=== PATIENT | female | born 1960 | race Caucasian/White ===

== ENCOUNTER 2020-07-08 13:37 | Emergency (ER) | payer OTHER, SELFPAY ==
[2020-07-08 14:00] VITALS: BP 130/73; PULSE 71; RESP 16; TEMP 36.1; O2SAT 96
[2020-07-08 14:16] VITALS: BP 148/69; PULSE 88; RESP 18; TEMP 35.9; O2SAT 98; BMI 45.3
--- NOTE | 2020-07-08 14:33 | ED.WOUNDLAC ---
HPI - Wound/Laceration General Chief Complaint: Wound/Laceration Stated Complaint: SUTURE REMOVAL Time Seen by Provider: 07/08/20 14:20 Source: patient Mode of arrival: ambulatory History of Present Illness HPI narrative: patient tells me on 06/23 she had 3 sutures placed to her right foot status post a laceration. She returned on 06/30 due to some redness and purulence from the wound site. She was started on antibiotics. The patient tells me she is here for a wound recheck and suture removal. She denies fevers, chills, redness, drainage from the site. She does tell me she has some mild pain around the site. Onset (ago): week(s) Location: other ( Right foot) Patient tetanus UTD: Yes Related Data Allergies Allergy/AdvReac Type Severity Reaction Status Date / Time Penicillins Allergy Severe ANAPHYLAXIS Unverified 06/19/20 15:46 duloxetine [From CYMBALTA] Allergy Unknown UNKNOWN Unverified 06/19/20 15:46 penicillin V Allergy Unknown angioedema Unverified 10/08/19 00:00 STEROIDS Allergy Unknown UNKNOWN Unverified 06/19/20 15:46 Crustaceans Allergy Severe RESP Uncoded 06/19/20 15:46 PROBLEMS SHELLFISH Allergy Severe NUMBNESS Uncoded 06/19/20 15:46 SWELLING MOUTH ENVIRONMENTAL Allergy Intermediate HAYFEVER Uncoded 06/19/20 15:46 SYMPTOMS Cortisone Allergy Unknown Uncoded 11/28/13 00:00 Shell Fish Allergy Unknown Uncoded 10/08/19 00:00 Shellfish Allergy Unknown Uncoded 11/28/13 00:00 Review of Systems Review of Systems: Yes all other systems are reviewed and are negative Constitutional: Constitutional: Reports no additional constitutional complaints, Denies body ache(s), Denies chills, Denies fever(s), Denies headache(s) and Denies weakness Eyes: Eyes: Reports no additional eye complaints and Denies change in vision ENT: Reports system reviewed and no additional complaints, except as documented, Denies dizziness, Denies headache(s), Denies nasal congestion, Denies nasal discharge and Denies neck pain Cardiovascular: Cardiovascular: Reports no additional cardiovascular complaints, Denies chest pain, Denies leg edema and Denies dyspnea Respiratory: Respiratory: Reports no additional respiratory complaints, Denies cough and Denies dyspnea Gastrointestinal: Gastrointestinal: Reports no additional gastrointestinal complaints, Denies abdominal pain, Denies diarrhea, Denies nausea and Denies vomiting Genitourinary: Genitourinary: Reports no additional female genitourinary complaints and Denies urinary incontinence Musculoskeletal: Musculoskeletal: Reports no additional musculoskeletal complaints, Denies back pain, Denies arthralgias, Denies joint swelling, Denies neck pain, Denies numbness and Denies tingling Integumentary/Breasts: Skin/Breast: Reports system reviewed and no additional complaints, except as docu and Denies rash Neurologic: Reports system reviewed and no additional complaints, except as documented, Denies Abnormal speech present, Denies dizziness, Denies headache(s), Denies numbness, Denies tingling and Denies weakness [facility] Past Medical History Attestation statement: The following information was validated with the patient. Source: obtained from family and nursing notes reviewed Medical History Afib Arthritis Back pain, chronic Bronchitis Carpal tunnel syndrome CHF (congestive heart failure) Edema Fibromyalgia Glaucoma Hypothyroid Lupus Migraine Raynauds disease Tachycardia Tendinitis Thyroid nodule Surgical History History of total bilateral knee replacement (TKR) Hx of cholecystectomy Hx of tonsillectomy Social History Social History Advance Directives: No Advance Directives Information Provided: Yes Physical Exam Vital Signs and I&O and Narrative: Vital Signs and I&O: Vital Signs Temp 96.7 F L 07/08/20 14:16 Pulse 88 07/08/20 14:16 Resp 18 07/08/20 14:16 BP 148/69 H 07/08/20 14:16 Pulse Ox 98 07/08/20 14:16 Intake & Output 07/07/20 07/08/20 07/08/20 18:59 06:59 18:59 Weight 108.862 kg Body Mass Index 45.3 Const: General: cooperative, healthy appearing, comfortable and no acute distress Orientation/consciousness: patient oriented x3 Limitations: no limitations HENMT: Head: Yes normal to inspection Ears: hearing grossly normal bilaterally General nose exam: Normal external nose present Face and sinus: Yes normal facial exam Mouth: Normal oral and palatal mucosa present Throat: Yes posterior oropharynx normal Eyes: General: appearance normal, both eyes and all related structures Pupils: Equal, round and reactive pupils present Neck: Neck: Yes normal visual inspection Chest: Chest palpation & inspection: normal inspection of the chest Resp: Effort & Inspection: normal respiratory effort Auscultation: clear to auscultation bilaterally Cardio: Rate: regular rate Rhythm: regular rhythm Peripheral pulses: Peripheral pulses 2+ throughout GI: Inspection: Yes normal to inspection Palpation (GI): Soft to palpation and nontender Auscultation: normal bowel sounds Back/Spine/Pelvis: Thoracic/Lumbar Spine: thoracic and lumbar spine normal to inspection Skin: General skin exam: no rashes or lesions noted Neuro: General: patient oriented x3, no focal motor deficits and normal sensation to monofilament Cranial nerves: Yes Equal, round and reactive pupils present Cognition (Neuro): normal cognition Speech: No Abnormal speech present Gait exam (Neuro): Normal gait present Motor exam (neuro): 5/5 motor strength present throughout Extrem: General: Yes normal to inspection Right lower extremity: normal to inspection ( to the distal dorsal aspect of the right foot there are 3 sutures present.), full ROM, normal capillary refill and foot ( Mild erythema around wound with no purulent drainage expressed. DP/PT 2+); no cyanosis and no edema Procedures Procedure Narrative Procedure Narrative: 3 sutures present and right dorsal foot. Removed with no incidents. Wound care provided with topical antibiotic ointment and wrap. MDM - Wound/Laceration MDM Narrative Medical decision making narrative: Sutures removed from wound. No active signs of infection. Reviewed wound care with patient. Reviewed worrisome signs and symptoms when to return to the emergency department. Comfortable discharge home. Discharge Plan Discharge Clinical Impression: Visit for suture removal Patient Disposition: Home, Self-Care Instructions: Stitches Removal (ED) Additional Instructions: continue antibiotics wash with soap and water then apply topical antibiotic ointment daily Referrals: Mercedes Pandya MD [Primary Care Provider] - 2 days Interventions: ED Discharge Assessment Last Done: 07/08/20 15:34 Discharge Date/Time: 07/08/20 15:35
== END 2020-07-08 15:35 | disposition home or self-care (01) ==
PROVIDERS: Emergency Provider Emergency Medicine; PCP Internal Medicine
DX: M79.671 Pain in right foot (principal); Z48.02 Encounter for removal of sutures; Z79.899 Other long term (current) drug therapy
CPT/HCPCS: 99284

== ENCOUNTER 2020-08-11 14:15 | Outpatient (REF) | payer OTHER, SELFPAY ==
[2020-08-11 15:48] LABS: Hematocrit 38.2 % (37-47); Hemoglobin 12.7 g/dl (12.0-16.0); Mean Corpuscular HGB Conc 33.2 g/dl (31.0-35.0); Mean Corpuscular Hemoglobin 25.9 pg (27.0-33.0); Mean Corpuscular Volume 77.8 fL (80-98); Mean Platelet Volume 10.1 fL (9.4-12.3); Platelet Count 368 X10*3/uL (160-400); Red Blood Count 4.91 X10*6/uL (4.20-5.50); Red Cell Distribution Width 15.4 % (11.0-16.0)
[2020-08-11 16:51] LABS: Anion Gap 15 (12-20); Blood Urea Nitrogen 26 mg/dL (9-16); Calcium 8.7 mg/dL (8.4-10.2); Carbon Dioxide 30 mmol/L (22-29); Chloride 97 mmol/L (96-108); Estimated Glomerular Filt Rate 47; Glucose Random 92 mg/dL (60-115); Potassium 3.2 mmol/l (3.3-5.1); Sodium 139 mmol/L (135-145)
[2020-08-11 17:12] LABS: TSH reflex Free T4 1.61 mIU/mL (0.32-4.0)
== END 2020-08-11 14:16 | disposition home or self-care (01) ==
LOC: HO.LAB 14:15
PROVIDERS: PCP Internal Medicine; Referring Provider Internal Medicine; Visit Provider Internal Medicine Cardiovascular Disease
DX: I48.0 Paroxysmal atrial fibrillation (principal); R07.9 Chest pain, unspecified; I47.1 Supraventricular tachycardia
CPT/HCPCS: 36415; 80048; 84443; 85027; 93005; 99212

== ENCOUNTER → 2020-09-04 08:13 | Outpatient (REF) | payer OTHER, SELFPAY ==
--- NOTE | 2020-09-04 | NM_ITS ---
Myocardial perfusion study Indication: Recurrent chest discomfort and shortness of breath evaluate for myocardial ischemia Technique: The patient was brought in for a Lexiscan perfusion study on 09/04/2020. Patient performed low-level exercise and was injected 0.4 mg of Lexiscan intravenously. Within a minute of injection, 40 mCi of sestamibi was given intravenously. Images were obtained using the SPECT gamma camera interlaced with the gating device. Images were obtained in supine position. Resting perfusion study was performed on 09/05/2020. Patient was administered 40 mCi of sestamibi intravenously at rest. Images were then obtained in supine position. Images were processed with the software and compared side to side in short axis, horizontal long axis and vertical long axis views. Findings: The stress perfusion study showed stress perfusion study showed minimally reduced uptake in the apex of the LV myocardium. Remainder of the LV myocardium normally perfused.. The gated study shows normal LV systolic function with calculated LVEF of 63%. LV cavity is normal in size. The gated study shows normal systolic wall thickening and contraction of segments. Resting study shows no change in perfusion pattern compared to stress perfusion study. Gating at rest reveals normal cyst colic wall motion with ejection fraction at 63%. The findings are consistent with normal myocardial perfusion. NM/NM tailb perf SPECT rest & str Impression: 1. Myocardial perfusion imaging study shows normal myocardial perfusion 2. Gated LVEF is 63% 3. Transient ischemic dilatation not present EKG is nondiagnostic for ischemia
--- NOTE | 2020-09-04 08:21 | CA_ITS ---
Transthoracic Echocardiogram Patient (Last, First, Middle): Marie Banks, Gender: Female Date of : 1960 Age: 60 Procedure Date: 09/04/2020 Procedure Type: Transthoracic Echocardiogram Location: OP Height: 154.94 cm Weight: 110.22 kg BSA: 2.05 m2 Heart Rate: bpm BP: 124 / 78 mmHg Corpsman: LOUISE Ramos MD: Josiah Anne MD Health Information Provider: Josiah Anne MD Symptoms: R07.9 - Chest pain, unspecified Study Quality: Fair ECG Rhythm: Sinus Conclusions: - 1. Technically limited study despite use of contrast agent 2. Normal LV systolic function with LVEF of 55-60% with grade 1 diastolic dysfunction 3. No significant abnormality of cardiac valvular Doppler Findings Procedure Information Contrast agent, definity, is being given per protocol without apparent complications. Left Ventricle Normal left ventricular cavity size. The left ventricular systolic function is normal. The visually estimated ejection fraction is between 55-60%. There is no evidence of regional wall motion abnormalities. Spectral Doppler is indicative of an impaired relaxation filling pattern. E/E prime ratio is <8, consistent with normal filling pressures. Evidence suggests grade I (mild) diastolic dysfunction. Right Ventricle The right ventricle was not well visualized. Atria The left atrium is likely dilated. Interatrial shunt cannot be excluded. The right atrium was not well visualized. Aortic Valve The aortic valve structure and function is likely normal. There is no aortic valve stenosis. There is no aortic valve regurgitation. Mitral Valve Normal mitral valve structure and function. There is trace mitral valve regurgitation. There is no mitral valve stenosis. Pulmonic Valve The pulmonic valve was not well visualized. Tricuspid Valve The tricuspid valve was not well visualized. Tricuspid regurgitation envelope is inadequate for calculation of right ventricular systolic pressure. Great Vessels All visible segments of the aorta are normal in size. The pulmonary artery was not well visualized. Venous The inferior vena cava was not well visualized. Pericardium/Pleural The pericardium was not well visualized. Prior Study Comparison No significant change compared to prior study dated: 04/19/2019. Measurements 2D Linear Measurements LA Diam: 3.40 2.7-3.8/3.0-4.0 cm LAIDs Index: 1.66 1.5-2.3 cm/m2 LVOT Diam: 2.10 3.0+(-)1.3 cm Mitral Valve MV Pk E: 0.51 MV PK A: 0.55 MV Decel Time: 152.00 E/A: 0.90 E'Lateral: 9.25 E'Medial: 6.96 E/E' Med: 7.40 E/E' Lat: 5.60 Aortic Valve AoV Pk Zeyad: 1.09 AoV Mn Zeyad: 0.81 AoV VTI: 0.21 AoV Pk Grad: 5.00 Aov Mn Grad: 3.00 JOY Cont.VTI: 2.47 LVOT LVOT Pk Zeyad: 0.85 LVOT Mn Zeyad: 0.59 LVOT VTI: 0.15 LVOT Pk Grad: 3.00 LVOT Mn Grad: 1.00 LVOT Diam: 2.10 LVOT Area: 3.46 Diastolic Function MV Pk E: 0.51 MV Pk A: 0.55 E/A: 0.90 E'Medial: 6.96 E/E' Med: 7.40 E' Laterial: 9.25 E/E' Lat: 5.60 Tricuspid Valve RA Press: 8.00 Great Vessels Aorta Ao Asc: 2.80 2.1-3.4 cm Ao Arch: 2.30 Updated in Other Vendor System with Status of Final Josiah Anne MD electronically signed on 09/05/2020 3:48:34 PM with status of Final
--- NOTE | 2020-09-04 08:21 | CA_ITS ---
Acquisition Time: 2020-09-04 09:49:16 Total Exercise Time: 00:02:00 Test Indications: Dyspnea Medications: SEE H Protocol: LEXISCAN Max HR: 099 BPM 61% of Pred: 162 BPM Max BP: 128/080 mmHG Max Work Load: 1.0 METS Pharmacological stress test using Lexiscan while sitting and kicking her feet. Patient tolerated well denies any anginal symptoms. EKG without any arrhythmias Non-diagnostic for ischemia. Nuclear images to follow. Normotensive response to test. Test reviewed with Dr. Anne. Referred By: Josiah Anne Overread By: Chichi Quinonez
== END ==
LOC: HO.CARD 08:13
PROVIDERS: Visit Provider Internal Medicine Cardiovascular Disease
DX: R07.9 Chest pain, unspecified (principal); I48.0 Paroxysmal atrial fibrillation; I10 Essential (primary) hypertension
CPT/HCPCS: 78452; 87086; 93017; 93306; A9500; J0280; J2785; Q9957

== ENCOUNTER 2020-09-05 11:44 | Outpatient (REF) | payer OTHER, SELFPAY ==
--- NOTE | 2020-09-05 11:44 | XR_ITS ---
EXAMINATION: XR KNEES, STANDING AP XR KNEE, RIGHT XR KNEE, LEFT CLINICAL INFORMATION: Bilateral knee pain COMPARISON: Standing AP knees and bilateral knees 02/17/2015 TECHNIQUE: Standing AP view of both knees is performed. Each knee is also imaged in lateral and axial patella views. FINDINGS: Right knee: There is prior knee arthroplasty. The hardware is intact. There is no fracture or dislocation or destructive process. No osteolysis. There is likely trace suprapatellar effusion. No lateralization or tilting patella. Left knee: There is prior knee arthroplasty. The hardware is intact. There is no fracture or dislocation or destructive process. No osteolysis. No suprapatellar effusion. No lateralization or tilting patella. There is small corticated ossicle at the medial side patella. XR/XR knee RT 2V IMPRESSION: 1. Bilateral knee arthroplasty. Hardware intact. No destructive process or osteolysis. 2. Probable trace effusion on right.
--- NOTE | 2020-09-05 11:44 | XR_ITS ---
EXAMINATION: XR KNEES, STANDING AP XR KNEE, RIGHT XR KNEE, LEFT CLINICAL INFORMATION: Bilateral knee pain COMPARISON: Standing AP knees and bilateral knees 02/17/2015 TECHNIQUE: Standing AP view of both knees is performed. Each knee is also imaged in lateral and axial patella views. FINDINGS: Right knee: There is prior knee arthroplasty. The hardware is intact. There is no fracture or dislocation or destructive process. No osteolysis. There is likely trace suprapatellar effusion. No lateralization or tilting patella. Left knee: There is prior knee arthroplasty. The hardware is intact. There is no fracture or dislocation or destructive process. No osteolysis. No suprapatellar effusion. No lateralization or tilting patella. There is small corticated ossicle at the medial side patella. XR/XR knee LT 2V IMPRESSION: 1. Bilateral knee arthroplasty. Hardware intact. No destructive process or osteolysis. 2. Probable trace effusion on right.
--- NOTE | 2020-09-05 11:44 | XR_ITS ---
EXAMINATION: XR KNEES, STANDING AP XR KNEE, RIGHT XR KNEE, LEFT CLINICAL INFORMATION: Bilateral knee pain COMPARISON: Standing AP knees and bilateral knees 02/17/2015 TECHNIQUE: Standing AP view of both knees is performed. Each knee is also imaged in lateral and axial patella views. FINDINGS: Right knee: There is prior knee arthroplasty. The hardware is intact. There is no fracture or dislocation or destructive process. No osteolysis. There is likely trace suprapatellar effusion. No lateralization or tilting patella. Left knee: There is prior knee arthroplasty. The hardware is intact. There is no fracture or dislocation or destructive process. No osteolysis. No suprapatellar effusion. No lateralization or tilting patella. There is small corticated ossicle at the medial side patella. XR/XR knee standing BI IMPRESSION: 1. Bilateral knee arthroplasty. Hardware intact. No destructive process or osteolysis. 2. Probable trace effusion on right.
== END 2020-09-05 11:45 | disposition home or self-care (01) ==
LOC: HO.HOSX 11:44
PROVIDERS: Visit Provider Orthopaedic Surgery
DX: M25.562 Pain in left knee (principal); M25.561 Pain in right knee; Z96.653 Presence of artificial knee joint, bilateral
CPT/HCPCS: 73560; 73565; 99212

== ENCOUNTER 2020-12-03 13:51 | Emergency (ER) | payer OTHER, SELFPAY ==
--- NOTE | ~2020-12-03 | XR_ITS ---
EXAMINATION: XR CHEST CLINICAL INFORMATION: Weakness COMPARISON: Previous chest x-ray August 2019 TECHNIQUE: Frontal view of the chest was obtained. FINDINGS: The cardiac and mediastinal contours are stable. The lungs are clear. There is no pleural effusion or pneumothorax. There are degenerative changes of the thoracic spine. XR/XR chest 1V IMPRESSION: No evidence for acute disease in the chest.
--- NOTE | ~2020-12-03 | CT_ITS ---
EXAMINATION: CT SOFT TISSUE NECK WITHOUT CONTRAST CLINICAL INFORMATION: Left-sided neck pain. COMPARISON: Chest radiograph from 12/03/2020. Thyroid ultrasound from 07/20/2016. TECHNIQUE: Multidetector helical imaging was performed in the axial plane without intravenous contrast. Multiple axial reformats and coronal/sagittal reconstructions were created the technologist workstation for review. This CT examination was performed using dose optimization techniques as appropriate, variously including the following: *Automated exposure control. *Adjustment of mA and/or kV according to patient size (this includes techniques or standardized protocols for targeted exams where dose is matched to indication/reason for exam; i.e. extremities or head). *Use of iterative reconstruction technique. DLP: 665 mGy-cm FINDINGS: No significant cutaneous thickening or subcutaneous inflammation. No discrete fluid collection within the deep tissues of the neck. The premaxillary, retromaxillary, pterygopalatine fossa, orbital apical, parapharyngeal, and prelaryngeal adipose tissue is maintained. Normal appearance of the parotid, submandibular, and thyroid glands. Scattered subcentimeter lymph nodes bilaterally, none of which are pathologically enlarged. No focal lesions demonstrated within the intrinsic tissues of the tongue or floor of mouth. Normal mucosal contours of the pharynx and larynx. Normal appearance of the hyoid bone, thyroid cartilage, or cartilaginous trachea. The airways remains widely patent. No radiopaque foreign bodies. The atlantooccipital and atlantoaxial articulations remain well aligned. Straightening of the normal cervical lordosis. No evidence of acute fracture or subluxation of the cervical spine. The vertebral body heights are maintained. Advanced degenerative disc disease at C4-C5 and C5-C6 with disc-osteophyte complex formation. Facet and uncovertebral joint arthropathy leads to osseous encroachment on the neural foramina at C5-C6. There is no prevertebral soft tissue swelling. The visualized portion of the skull base is without significant abnormalities. The visualized paranasal sinuses are clear. The mastoid air cells and middle ear cavities are clear. Periapical lucency associated with the maxillary right canine. No additional Demonstrated significant periapical odontogenic disease. CT Upper Chest: The visualized lung apices and upper mediastinum are within normal limits. CT/CT soft tissue neck wo con IMPRESSION: 1. No demonstrated focal lesion, collection, or lymphadenopathy within the soft tissues of the neck. 2. Mild to moderate degenerative spondyloarthropathy of the cervical spine.
[2020-12-03 14:04] VITALS: BP 150/84; PULSE 82; RESP 18; TEMP 36.3; O2SAT 97; BMI 45.9
--- NOTE | 2020-12-03 14:54 | ECG_ITS ---
Test Reason : NUMBNESS Blood Pressure : / mmHG Vent. Rate : 082 BPM Atrial Rate : 082 BPM P-R Int : 174 ms QRS Dur : 098 ms QT Int : 416 ms P-R-T Axes : 044 -07 036 degrees QTc Int : 486 ms Normal sinus rhythm Low voltage QRS T wave abnormality, consider anterior ischemia Abnormal ECG When compared with ECG of 12-AUG-2019 08:50, Nonspecific T wave abnormality, improved in Inferior leads Referred By: Mercedes Pandya Electronically Signed By:SARWAT DE LOS SANTOS
[2020-12-03 15:48] LABS: MANUAL DIFF FLAG NO
[2020-12-03 15:51] LABS: Basophils Percent Auto 0.1 % (0-2); Eosinophils Absolute Auto 0.1 X10*3/uL (0.0-0.4); Eosinophils Percent Auto 1.6 % (0-4); Hematocrit 38.3 % (37-47); Hemoglobin 12.8 g/dl (12.0-16.0); Imm Gran Abs Auto 0.03 X10*3/uL (0.00-0.03); Imm Gran Pct Auto 0.3 % (0.0-0.4); Lymphocytes Absolute Auto 2.2 X10*3/uL (1.2-4.9); Lymphocytes Percent Auto 25.7 % (20-40); Mean Corpuscular HGB Conc 33.4 g/dl (31.0-35.0); Mean Corpuscular Hemoglobin 26.1 pg (27.0-33.0); Monocytes Absolute Auto 0.5 X10*3/uL (0.1-1.2); Monocytes Percent Auto 5.9 % (2-11); Neutrophils Absolute Auto 5.8 X10*3/uL (2.0-8.3); Neutrophils Percent Auto 66.4 % (45-73); Platelet Count 419 X10*3/uL (160-400); Red Blood Count 4.91 X10*6/uL (4.20-5.50); Red Cell Distribution Width 15.6 % (11.0-16.0); White Blood Count 8.7 X10*3/uL (4.8-10.8)
[2020-12-03 16:28] LABS: Troponin-I High Sensitivity < 3.5 ng/L (<3.5-17.0)
[2020-12-03 16:31] LABS: Anion Gap 12 (12-20); Blood Urea Nitrogen 20 mg/dL (9-16); Calcium 9.3 mg/dL (8.4-10.2); Carbon Dioxide 33 mmol/L (22-29); Chloride 96 mmol/L (96-108); Creatinine Clr Calc Pharmacy 65.8; Estimated Glomerular Filt Rate 53; Glucose Random 88 mg/dL (60-115); Potassium 3.7 mmol/L (3.3-5.1); Sodium 137 mmol/L (135-145)
--- NOTE | 2020-12-03 21:07 | ED.GENADULT ---
HPI - General Adult General Chief complaint: Weakness Stated complaint: numbness arm and leg Time Seen by Provider: 12/03/20 15:37 Source: patient Mode of arrival: ambulatory Limitations: no limitations History of Present Illness HPI narrative: Patient comes to emergency room complaining of left-sided body pains. Patient states it started on November 24. Patient states that her neck hurts, has pain radiating down towards the left arm, has back pain, hip pain, leg pain. Patient states that she had no trauma prior to all this. Patient complaining of upper middle and lower back pain. Patient is ambulatory without assistance. Patient states she has been having a hard time dressing herself or taking showers because of the pain in the left upper body that is radiating from the neck down. Related Data Home Medications Medication Instructions Recorded Confirmed alprazolam 0.5 mg tablet 0.5 mg PO TID PRN 08/11/20 09/05/20 ascorbic acid (vitamin C) 250 mg 250 mg PO DAILY 08/11/20 09/05/20 tablet calcium carbonate 600 mg calcium 600 mg PO DAILY 08/11/20 09/05/20 (1,500 mg) tablet docusate sodium 100 mg capsule 100 mg PO BID 08/11/20 09/05/20 ferrous sulfate 325 mg (65 mg 325 mg PO DAILY 08/11/20 09/05/20 iron) tablet fluticasone propionate 110 0 mcg INHALATION 08/11/20 09/05/20 mcg/actuation HFA aerosol inhaler folic acid 1 mg tablet 1 mg PO DAILY 08/11/20 09/05/20 furosemide 20 mg tablet 20 mg PO DAILY 08/11/20 09/05/20 levothyroxine 75 mcg tablet 75 mcg PO DAILY 08/11/20 09/05/20 loratadine 10 mg tablet 10 mg PO DAILY 08/11/20 09/05/20 milnacipran 50 mg tablet 50 mg PO BID 08/11/20 09/05/20 multivitamin 1 tab PO DAILY 08/11/20 09/05/20 omeprazole 20 mg capsule,delayed 20 mg PO DAILY 08/11/20 09/05/20 release pravastatin 20 mg tablet mg PO 08/11/20 09/05/20 Previous Rx's Medication Instructions Recorded lisinopril 10 mg tablet 10 mg PO DAILY 30 Days #30 tab 08/27/20 dabigatran etexilate 150 mg capsule 150 mg PO BID #56 cap 09/01/20 dronedarone 400 mg tablet 400 mg PO BID #60 tab 09/01/20 metoprolol tartrate 50 mg tablet 50 mg PO BID 90 Days #180 tab 09/02/20 hydrochlorothiazide 25 mg tablet 25 mg PO QAM 90 Days #90 tab 10/27/20 tramadol 50 mg PO Q8H PRN #14 tab 12/03/20 Allergies Allergy/AdvReac Type Severity Reaction Status Date / Time Penicillins Allergy Severe ANAPHYLAXIS Verified 09/05/20 12:24 duloxetine [From CYMBALTA] Allergy Unknown UNKNOWN Verified 09/05/20 12:24 STEROIDS Allergy Unknown UNKNOWN Verified 09/05/20 12:24 Crustaceans Allergy Severe RESP Uncoded 09/05/20 12:24 PROBLEMS SHELLFISH Allergy Severe NUMBNESS Uncoded 09/05/20 12:24 SWELLING MOUTH Cortisone Allergy Unknown unknown Uncoded 09/05/20 12:24 Review of Systems Review of Systems: Constitutional : No Weight loss, No Fever, No Chills, No Night Sweats, No Fatigue, No Malaise ENT/Mouth : No Hearing loss, No Ear Pain, No Nasal Congestion, No Sinus Pain, No Hoarseness, No sore throat, No Rhinorrhea, No Swallowing Difficulty Eyes: No Eye Pain, No Swelling, No Redness, No Foreign Body, No Discharge, No Vision Changes Cardiovascular : No Chest Pain, No SOB, No Dyspnea on Exertion, No Orthopnea, No Edema, No Palpitations Respiratory : No Cough, No Sputum, No Wheezing, No Smoke Exposure, No Dyspnea Gastrointestinal : No Nausea, No Vomiting, No Diarrhea, No Constipation, No abdominal Pain, No Hematochezia, No Melena Genitourinary : no irregular bleeding, No Dysuria, No Urinary Frequency, No Hematuria, No Urinary Incontinence, No Urgency, No Flank Pain, No Urinary Flow Changes, No Hesitancy Musculoskeletal : Multiple complaints including neck upper extremity lower extremity hip and back, all on the left side Skin : No Skin Lesions, No rash Neuro : No Weakness, complaining of paresthesias in her left upper extremity Psych : No Anxiety/Panic, No Depression, No SI/HI/AH/VH, No Social Issues, Heme/Lymph: No Bruising, No Bleeding,No Lymphadenopathy Endocrine : No Polyuria, No Polydipsia, No Temperature Intolerance [facility] Past Medical History Medical History Arthritis Back pain, chronic Bronchitis Carpal tunnel syndrome Edema Fibromyalgia Glaucoma HTN (hypertension) Hypothyroid Lupus Migraine Morbid obesity Paroxysmal atrial fibrillation Raynauds disease SVT (supraventricular tachycardia) Takotsubo cardiomyopathy Tendinitis Thyroid nodule Surgical History History of total bilateral knee replacement (TKR) Hx of cholecystectomy Hx of tonsillectomy Family History Family History Father No problems noted. Mother CVD (cardiovascular disease) Brother Stomach cancer Social History Social History Smoking Status: Never smoker Advance Directives: No Advance Directives Information Provided: Yes Current occupational status: disabled Current occupation: right handed Physical Exam Vital Signs: Vital Signs: Last Vital Signs Temp 97.8 F 12/03/20 22:02 Pulse 84 12/03/20 22:02 Resp 18 12/03/20 22:02 BP 152/106 H 12/03/20 22:02 Pulse Ox 97 12/03/20 22:02 Body Mass Index 45.9 Appearance: Alert. Oriented X3. No acute distress. Morbidly obese Eyes: Pupils equal, round and reactive to light. ENT: Pharynx normal. Neck: Normal inspection. Pain to palpation over the left side of her neck, no midline tenderness, no palpable step-offs CVS: Normal heart rate and rhythm. Pulses normal. Normal S1 and S2 Respiratory: No respiratory distress. Breath sounds normal. No Wheezing. No rales Abdomen: Soft and nontender. No rigidity. No distention. good BS x4 Skin: Skin warm and dry. Extremities: No lower extremity edema. Patient is ambulatory without assistance. Patient is able to abduct both arms, strength 5/5 bilaterally Neuro: Oriented X 3. No motor deficit. No sensory deficit. Moving all extermities. No slurred speech. Course Course Course Narrative: I discussed the CT scan with the patient, no acute findings. However patient may benefit from MRI to rule out because of the cervical radiculopathy, which is likely the source of the patient's pain radiating from the neck down the left arm. Patient states that before COVID she was being seen by Endocrinology and by Rheumatology for various health issues. Patient requesting their phone numbers to continue following up. Medical Decision Making Lab Data Result diagrams: 12/03/20 15:41 12/03/20 15:41 Labs: Lab Results 12/03/20 12/03/20 12/03/20 Range/Units 15:41 15:41 15:41 WBC 8.7 (4.8-10.8) X10*3/uL RBC 4.91 (4.20-5.50) X10*6/uL Hgb 12.8 (12.0-16.0) g/dl Hct 38.3 (37-47) % MCV 78.0 L (80-98) fL MCH 26.1 L (27.0-33.0) pg MCHC 33.4 (31.0-35.0) g/dl RDW 15.6 (11.0-16.0) % Plt Count 419 H (160-400) X10*3/uL MPV 10.0 (9.4-12.3) fL Immature Gran % (Auto) 0.3 (0.0-0.4) % Neut % (Auto) 66.4 (45-73) % Lymph % (Auto) 25.7 (20-40) % Foard % (Auto) 5.9 (2-11) % Eos % (Auto) 1.6 (0-4) % Baso % (Auto) 0.1 (0-2) % Lymph # (Auto) 2.2 (1.2-4.9) X10*3/uL Foard # (Auto) 0.5 (0.1-1.2) X10*3/uL Eos # (Auto) 0.1 (0.0-0.4) X10*3/uL Baso # (Auto) 0.0 (0.0-0.2) X10*3/uL Abs Immat Gran (auto) 0.03 (0.00-0.03) X10*3/uL Absolute Neuts (auto) 5.8 (2.0-8.3) X10*3/uL Absolute Nucleated RBC 0.000 (0.0-0.012) X10*3/uL Nucleated RBC % (auto) 0.0 (0.0-0.2) /100WBC Sodium 137 (135-145) mmol/L Potassium 3.7 (3.3-5.1) mmol/L Chloride 96 (96-108) mmol/L Carbon Dioxide 33 H (22-29) mmol/L Anion Gap 12 (12-20) BUN 20 H (9-16) mg/dL Creatinine 1.07 (0.5-1.4) mg/dL Estim Creat Clear Calc 65.8 Estimated GFR 53 Random Glucose 88 (60-115) mg/dL Calcium 9.3 D (8.4-10.2) mg/dL Troponin I High Sens < 3.5 (<3.5-17.0) ng/L Imaging Data Neck CT: Radiologist's impression: Left-sided neck pain. COMPARISON: Chest radiograph from 12/03/2020. Thyroid ultrasound from 07/20/2016. TECHNIQUE: Multidetector helical imaging was performed in the axial plane without intravenous contrast. Multiple axial reformats and coronal/sagittal reconstructions were created the technologist workstation for review. This CT examination was performed using dose optimization techniques as appropriate, variously including the following: *Automated exposure control. *Adjustment of mA and/or kV according to patient size (this includes techniques or standardized protocols for targeted exams where dose is matched to indication/reason for exam; i.e. extremities or head). *Use of iterative reconstruction technique. DLP: 665 mGy-cm FINDINGS: No significant cutaneous thickening or subcutaneous inflammation. No discrete fluid collection within the deep tissues of the neck. The premaxillary, retromaxillary, pterygopalatine fossa, orbital apical, parapharyngeal, and prelaryngeal adipose tissue is maintained. Normal appearance of the parotid, submandibular, and thyroid glands. Scattered subcentimeter lymph nodes bilaterally, none of which are pathologically enlarged. No focal lesions demonstrated within the intrinsic tissues of the tongue or floor of mouth. Normal mucosal contours of the pharynx and larynx. Normal appearance of the hyoid bone, thyroid cartilage, or cartilaginous trachea. The airways remains widely patent. No radiopaque foreign bodies. The atlantooccipital and atlantoaxial articulations remain well aligned. Straightening of the normal cervical lordosis. No evidence of acute fracture or subluxation of the cervical spine. The vertebral body heights are maintained. Advanced degenerative disc disease at C4-C5 and C5-C6 with disc-osteophyte complex formation. Facet and uncovertebral joint arthropathy leads to osseous encroachment on the neural foramina at C5-C6. There is no prevertebral soft tissue swelling. The visualized portion of the skull base is without significant abnormalities. The visualized paranasal sinuses are clear. The mastoid air cells and middle ear cavities are clear. Periapical lucency associated with the maxillary right canine. No additional Demonstrated significant periapical odontogenic disease. CT Upper Chest: The visualized lung apices and upper mediastinum are within normal limits. CT/CT soft tissue neck wo con IMPRESSION: 1. No demonstrated focal lesion, collection, or lymphadenopathy within the soft tissues of the neck. 2. Mild to moderate degenerative spondyloarthropathy of the cervical spine. Discharge Plan Discharge Clinical Impression: Cervical radiculopathy Patient Disposition: Home, Self-Care Instructions: Cervical Radiculopathy (ED) Additional Instructions: Please follow-up with your primary care physician, you may need an MRI of her neck. Please call [facility] to schedule an appointment: [phone]. Please call Endocrinology to schedule an appointment: [phone] Prescriptions: New tramadol 50 mg tablet 50 mg PO Q8H PRN (Reason: pain) Qty: 14 RF: 0 No Action lisinopril 10 mg tablet 10 mg PO DAILY 30 Days Qty: 30 RF: 5 Multaq 400 mg tablet 400 mg PO BID Qty: 60 RF: 3 dabigatran etexilate [Pradaxa] 150 mg capsule 150 mg PO BID Qty: 56 RF: 5 metoprolol tartrate 50 mg tablet 50 mg PO BID 90 Days Qty: 180 RF: 3 hydrochlorothiazide 25 mg tablet 25 mg PO QAM 90 Days Qty: 90 RF: 1 folic acid 1 mg tablet 1 mg PO DAILY RF: 0 Savella 50 mg tablet 50 mg PO BID RF: 0 loratadine 10 mg tablet 10 mg PO DAILY RF: 0 furosemide 20 mg tablet 20 mg PO DAILY RF: 0 pravastatin 20 mg tablet PO RF: 0 omeprazole 20 mg capsule,delayed release(DR/EC) 20 mg PO DAILY RF: 0 docusate sodium 100 mg capsule 100 mg PO BID RF: 0 ferrous sulfate 325 mg (65 mg iron) tablet 325 mg PO DAILY RF: 0 ascorbic acid (vitamin C) 250 mg tablet 250 mg PO DAILY RF: 0 calcium carbonate 600 mg calcium (1,500 mg) tablet 600 mg PO DAILY RF: 0 levothyroxine 75 mcg tablet 75 mcg PO DAILY RF: 0 multivitamin Tablet 1 tab PO DAILY RF: 0 alprazolam 0.5 mg tablet 0.5 mg PO TID PRNRF: 0 Flovent HFA 110 mcg/actuation HFA aerosol inhaler 0 mcg inhalation RF: 0
--- NOTE | 2020-12-03 21:47 | PC.NURSE ---
late entry, per okay to move to [facility]
[2020-12-03 22:02] VITALS: BP 152/106; PULSE 84; RESP 18; TEMP 36.6; O2SAT 97
--- NOTE | 2020-12-03 22:24 | PC.NURSE ---
Pt called this investment underwriter while i was in another patient's room. Per patient this is unacceptable, I can't believe you moved me. I m going to catch covid and i haven't gotten anything for pain. I m going to file on this hospital this is unfair. pt reducated that provider cleared patient to be moved from monitor bed. MD was notified earlier about pain management, needs. Provider to bedside for reevaluation.
--- NOTE | 2020-12-03 22:34 | PC.NURSE ---
pt refusing tramadol, i don't trust it, I dont' use it.: pt offered education regarding tramadol. aware.
== END 2020-12-03 22:47 | disposition home or self-care (01) ==
PROVIDERS: Emergency Provider Emergency Medicine; PCP Internal Medicine
DX: M54.12 Radiculopathy, cervical region (principal); I10 Essential (primary) hypertension; M79.7 Fibromyalgia; E66.01 Morbid (severe) obesity due to excess calories; I48.0 Paroxysmal atrial fibrillation; I51.81 Takotsubo syndrome; Z79.899 Other long term (current) drug therapy
CPT/HCPCS: 36415; 70490; 71045; 80048; 84484; 85025; 93005; 99284

== ENCOUNTER 2021-02-07 13:40 | Emergency (ER) | payer OTHER, SELFPAY ==
[2021-02-07 14:59] VITALS: BP 131/75; PULSE 80; RESP 18; TEMP 37; O2SAT 99; BMI 36.6
--- NOTE | 2021-02-07 15:07 | ED.URI ---
HPI - URI/Sore Throat General Chief Complaint: Upper Respiratory Symptoms Stated Complaint: cough,congestion Time Seen by Provider: 02/07/21 14:43 Source: patient Mode of arrival: ambulatory Limitations: no limitations History of Present Illness HPI Narrative: 60-year-old female here with you URI symptoms. Requesting COVID tested she is due for her 2nd COVID shot this week Related Data Home Medications Medication Instructions Recorded Confirmed alprazolam 0.5 mg tablet 0.5 mg PO TID PRN 08/11/20 09/05/20 ascorbic acid (vitamin C) 250 mg 250 mg PO DAILY 08/11/20 09/05/20 tablet calcium carbonate 600 mg calcium 600 mg PO DAILY 08/11/20 09/05/20 (1,500 mg) tablet docusate sodium 100 mg capsule 100 mg PO BID 08/11/20 09/05/20 ferrous sulfate 325 mg (65 mg 325 mg PO DAILY 08/11/20 09/05/20 iron) tablet fluticasone propionate 110 0 mcg INHALATION 08/11/20 09/05/20 mcg/actuation HFA aerosol inhaler folic acid 1 mg tablet 1 mg PO DAILY 08/11/20 09/05/20 furosemide 20 mg tablet 20 mg PO DAILY 08/11/20 09/05/20 levothyroxine 75 mcg tablet 75 mcg PO DAILY 08/11/20 09/05/20 loratadine 10 mg tablet 10 mg PO DAILY 08/11/20 09/05/20 milnacipran 50 mg tablet 50 mg PO BID 08/11/20 09/05/20 multivitamin 1 tab PO DAILY 08/11/20 09/05/20 omeprazole 20 mg capsule,delayed 20 mg PO DAILY 08/11/20 09/05/20 release pravastatin 20 mg tablet mg PO 08/11/20 09/05/20 Previous Rx's Medication Instructions Recorded dronedarone 400 mg tablet 400 mg PO BID #60 tab 09/01/20 metoprolol tartrate 50 mg tablet 50 mg PO BID 90 Days #180 tab 09/02/20 hydrochlorothiazide 25 mg tablet 25 mg PO QAM 90 Days #90 tab 10/27/20 tramadol 50 mg PO Q8H PRN #14 tab 12/03/20 dabigatran etexilate 150 mg capsule 150 mg PO BID 90 Days #180 cap 02/02/21 lisinopril 10 mg tablet 10 mg PO DAILY #28 tab 02/03/21 azithromycin See Rx Instructions .ROUTE 02/07/21 .COMPLEX #6 tab benzonatate [Tessalon Perles] 100 mg PO BID PRN #10 cap 02/07/21 Allergies Allergy/AdvReac Type Severity Reaction Status Date / Time Penicillins Allergy Severe ANAPHYLAXIS Verified 09/05/20 12:24 duloxetine [From CYMBALTA] Allergy Unknown UNKNOWN Verified 09/05/20 12:24 STEROIDS Allergy Unknown UNKNOWN Verified 09/05/20 12:24 Crustaceans Allergy Severe RESP Uncoded 09/05/20 12:24 PROBLEMS SHELLFISH Allergy Severe NUMBNESS Uncoded 09/05/20 12:24 SWELLING MOUTH Cortisone Allergy Unknown unknown Uncoded 09/05/20 12:24 Review of Systems Review of Systems: Yes all other systems are reviewed and are negative Constitutional: Constitutional: Reports no additional constitutional complaints, Denies body ache(s), Denies chills, Denies fever(s), Denies headache(s) and Denies weakness Eyes: Eyes: Reports no additional eye complaints and Denies change in vision ENT: Reports system reviewed and no additional complaints, except as documented, Denies dizziness, Denies headache(s), Denies nasal congestion, Denies nasal discharge and Denies neck pain Cardiovascular: Cardiovascular: Reports no additional cardiovascular complaints, Denies chest pain, Denies leg edema and Denies dyspnea Respiratory: Respiratory: Reports no additional respiratory complaints, Reports cough and Denies dyspnea Gastrointestinal: Gastrointestinal: Reports no additional gastrointestinal complaints, Denies abdominal pain, Denies diarrhea, Denies nausea and Denies vomiting Genitourinary: Genitourinary: Reports no additional female genitourinary complaints and Denies urinary incontinence Musculoskeletal: Musculoskeletal: Reports no additional musculoskeletal complaints, Denies back pain, Denies arthralgias, Denies joint swelling, Denies neck pain, Denies numbness and Denies tingling Integumentary/Breasts: Skin/Breast: Reports system reviewed and no additional complaints, except as docu and Denies rash Neurologic: Reports system reviewed and no additional complaints, except as documented, Denies Abnormal speech present, Denies dizziness, Denies headache(s), Denies numbness, Denies tingling and Denies weakness PMFSH Past Medical History Attestation statement: The following information was validated with the patient. Source: old records reviewed and nursing notes reviewed Medical History Arthritis Back pain, chronic Bronchitis Carpal tunnel syndrome Edema Fibromyalgia Glaucoma HTN (hypertension) Hypothyroid Lupus Migraine Morbid obesity Paroxysmal atrial fibrillation Raynauds disease SVT (supraventricular tachycardia) Takotsubo cardiomyopathy Tendinitis Thyroid nodule Surgical History History of total bilateral knee replacement (TKR) Hx of cholecystectomy Hx of tonsillectomy Family History Family History Father No problems noted. Mother CVD (cardiovascular disease) Brother Stomach cancer Social History Social History Smoking Status: Never smoker Advance Directives: No Advance Directives Information Provided: Yes Patient : No Current occupational status: disabled Current occupation: right handed Physical Exam Vital Signs: Vital Signs: Last Vital Signs Temp 98.6 F 02/07/21 14:59 Pulse 80 02/07/21 14:59 Resp 18 02/07/21 14:59 BP 131/75 02/07/21 14:59 Pulse Ox 99 02/07/21 14:59 Body Mass Index 36.6 Const: General: cooperative, healthy appearing, comfortable and no acute distress Orientation/consciousness: patient oriented x3 Limitations: no limitations HENMT: Head: Yes normal to inspection Ears: hearing grossly normal bilaterally General nose exam: Normal external nose present Face and sinus: Yes normal facial exam Mouth: Normal oral and palatal mucosa present Throat: Yes posterior oropharynx normal Eyes: General: appearance normal, both eyes and all related structures Pupils: Equal, round and reactive pupils present Neck: Neck: Yes normal visual inspection Chest: Chest palpation & inspection: normal inspection of the chest Resp: Effort & Inspection: normal respiratory effort Auscultation: clear to auscultation bilaterally Cardio: Rate: regular rate Rhythm: regular rhythm Peripheral pulses: Peripheral pulses 2+ throughout GI: Inspection: Yes normal to inspection Palpation (GI): Soft to palpation and nontender Auscultation: normal bowel sounds Back/Spine/Pelvis: Thoracic/Lumbar Spine: thoracic and lumbar spine normal to inspection Skin: General skin exam: no rashes or lesions noted Neuro: General: patient oriented x3, no focal motor deficits and normal sensation to monofilament Cranial nerves: Yes Equal, round and reactive pupils present Cognition (Neuro): normal cognition Speech: No Abnormal speech present Gait exam (Neuro): Normal gait present Motor exam (neuro): 5/5 motor strength present throughout Extrem: General: Yes normal to inspection Course Course Course Narrative: 60-year-old female here with URI symptoms. Seeking COVID test that she may get her 2nd COVID vaccine this week. Will send testing -COVID screen negative. Patient feels like she has bronchitis. Typically improves with a course of azithromycin. Allergic to prednisone. Will give azithromycin x5 days. Reviewed worrisome signs and symptoms and when to return to the emergency department. Comfortable discharge home. MDM - URI/Sore Throat Medical Records Attestation: I reviewed the patient's medical records. Lab Data Attestation: I reviewed the patient's lab results. Labs: Lab Results 02/07/21 Range/Units 15:30 COVID-19 (JANET) Negative (Negative) COVID-19 Clin Com See Note Discharge Plan Discharge Clinical Impression: Bronchitis Patient Disposition: Home, Self-Care Instructions: Acute Bronchitis (ED) Additional Instructions: Your COVID test was negative Prescriptions: New azithromycin 250 mg tablet See Rx Instructions .ROUTE .COMPLEX Qty: 6 RF: 0 benzonatate [Tessalon Perles] 100 mg capsule 100 mg PO BID PRN (Reason: cough) Qty: 10 RF: 0 No Action Multaq 400 mg tablet 400 mg PO BID Qty: 60 RF: 3 metoprolol tartrate 50 mg tablet 50 mg PO BID 90 Days Qty: 180 RF: 3 hydrochlorothiazide 25 mg tablet 25 mg PO QAM 90 Days Qty: 90 RF: 1 dabigatran etexilate [Pradaxa] 150 mg capsule 150 mg PO BID 90 Days Qty: 180 RF: 1 lisinopril 10 mg tablet 10 mg PO DAILY Qty: 28 RF: 5 tramadol 50 mg tablet 50 mg PO Q8H PRN (Reason: pain) Qty: 14 RF: 0 folic acid 1 mg tablet 1 mg PO DAILY RF: 0 Savella 50 mg tablet 50 mg PO BID RF: 0 loratadine 10 mg tablet 10 mg PO DAILY RF: 0 furosemide 20 mg tablet 20 mg PO DAILY RF: 0 pravastatin 20 mg tablet PO RF: 0 omeprazole 20 mg capsule,delayed release(DR/EC) 20 mg PO DAILY RF: 0 docusate sodium 100 mg capsule 100 mg PO BID RF: 0 ferrous sulfate 325 mg (65 mg iron) tablet 325 mg PO DAILY RF: 0 ascorbic acid (vitamin C) 250 mg tablet 250 mg PO DAILY RF: 0 calcium carbonate 600 mg calcium (1,500 mg) tablet 600 mg PO DAILY RF: 0 levothyroxine 75 mcg tablet 75 mcg PO DAILY RF: 0 multivitamin Tablet 1 tab PO DAILY RF: 0 alprazolam 0.5 mg tablet 0.5 mg PO TID PRNRF: 0 Flovent HFA 110 mcg/actuation HFA aerosol inhaler 0 mcg inhalation RF: 0 Referrals: Physician,Unknown [Primary Care Provider] - 2 days Interventions: ED Discharge Assessment Last Done: 02/07/21 17:07 Discharge Date/Time: 02/07/21 17:08 Print Language: Persian
[2021-02-07 15:53] LABS: COVID-19 Test Negative (Negative)
== END 2021-02-07 17:08 | disposition home or self-care (01) ==
PROVIDERS: Nurse Practitioner Family; Emergency Provider Emergency Medicine
DX: J20.9 Acute bronchitis, unspecified (principal); Z20.822 Contact with and (suspected) exposure to COVID-19; I10 Essential (primary) hypertension; I48.0 Paroxysmal atrial fibrillation
CPT/HCPCS: 36415; 87635; 99282; 99283

== ENCOUNTER → 2021-02-17 13:57 | Outpatient (BNVA) | payer OTHER, SELFPAY | PROVIDERS: PCP Internal Medicine; Visit Provider Internal Medicine Cardiovascular Disease | DX: I48.0 Paroxysmal atrial fibrillation (principal); I10 Essential (primary) hypertension | CPT/HCPCS: 93005; 99212 ==

== ENCOUNTER 2021-02-25 15:19 | Outpatient (REF) | payer OTHER, SELFPAY ==
--- NOTE | ~2021-02-25 | XR_ITS ---
EXAMINATION: XR ANKLE, RIGHT CLINICAL INFORMATION: Right ankle pain. COMPARISON: 06/23/2020 and 06/13/2018. TECHNIQUE: AP, lateral, and mortise views of the right ankle. FINDINGS: Bilateral soft tissue swelling is present. Some mild degenerative changes are present with a medial malleolus osteophyte. No fractures or dislocations are seen. The ankle mortise appears stable. A plantar calcaneal spur is again seen. XR/XR ankle RT min 3V IMPRESSION: Some mild degenerative changes. No acute finding. Bilateral soft tissue swelling without fracture.
[2021-02-25 15:54] LABS: MANUAL DIFF FLAG NO
[2021-02-25 16:02] LABS: Basophils Percent Auto 0.1 % (0-2); Eosinophils Absolute Auto 0.1 X10*3/uL (0.0-0.4); Eosinophils Percent Auto 1.3 % (0-4); Hematocrit 38.7 % (37-47); Hemoglobin 12.7 g/dl (12.0-16.0); Imm Gran Abs Auto 0.01 X10*3/uL (0.00-0.03); Imm Gran Pct Auto 0.1 % (0.0-0.4); Lymphocytes Absolute Auto 2.9 X10*3/uL (1.2-4.9); Lymphocytes Percent Auto 29.8 % (20-40); Mean Corpuscular HGB Conc 32.8 g/dl (31.0-35.0); Mean Corpuscular Hemoglobin 25.7 pg (27.0-33.0); Mean Corpuscular Volume 78.3 fL (80-98); Mean Platelet Volume 10.4 fL (9.4-12.3); Monocytes Absolute Auto 0.6 X10*3/uL (0.1-1.2); Monocytes Percent Auto 5.8 % (2-11); Neutrophils Absolute Auto 6.2 X10*3/uL (2.0-8.3); Neutrophils Percent Auto 62.9 % (45-73); Platelet Count 401 X10*3/uL (160-400); Red Blood Count 4.94 X10*6/uL (4.20-5.50); Red Cell Distribution Width 15.9 % (11.0-16.0); White Blood Count 9.9 X10*3/uL (4.8-10.8)
[2021-02-25 16:47] LABS: Alanine Aminotransferase 27 U/L (0-31); Albumin Level 4.4 g/dL (3.5-5.0); Alkaline Phosphatase 107 U/L (39-117); Anion Gap 16 (12-20); Aspartate Amino Transferase 29 U/L (5-31); Bilirubin Total 0.5 mg/dL (0.0-1.0); Blood Urea Nitrogen 25 mg/dL (9-16); Calcium 9.6 mg/dL (8.4-10.2); Carbon Dioxide 31 mmol/L (22-29); Chloride 98 mmol/L (96-108); Cholesterol 183 mg/dL; Estimated Glomerular Filt Rate 50; Glucose Random 97 mg/dL (60-115); HDL Cholesterol 60 mg/dL; LDL Cholesterol Calculated 100 mg/dl; Potassium 3.8 mmol/L (3.3-5.1); Sodium 141 mmol/L (135-145); Total Protein 7.9 g/dL (6.5-8.0); Triglycerides 116 mg/dL
[2021-02-25 17:07] LABS: Thyroid Stimulating Hormone 2.14 uIU/mL (0.32-4.0)
== END 2021-02-25 15:20 | disposition home or self-care (01) ==
LOC: HO.LAB 15:19
PROVIDERS: PCP Internal Medicine; Visit Provider Internal Medicine
DX: E03.9 Hypothyroidism, unspecified (principal); E78.00 Pure hypercholesterolemia, unspecified; F41.1 Generalized anxiety disorder; I10 Essential (primary) hypertension; J45.909 Unspecified asthma, uncomplicated
CPT/HCPCS: 36415; 73610; 80053; 80061; 84443; 85025

== ENCOUNTER 2021-03-25 13:09 | Inpatient (IN) | payer OTHER, SELFPAY ==
--- NOTE | ~2021-03-25 | US_ITS ---
EXAMINATION: US RETROPERITONEAL LIMITED (RENAL ONLY) CLINICAL INFORMATION: Flank pain. Greater on the right. Hematuria.. COMPARISON: CT abdomen pelvis 02/22/2017 TECHNIQUE: Grayscale ultrasound imaging. FINDINGS: RIGHT KIDNEY: 9.2 x 4.9 x 4.8 cm (SAG x AP x TRV). The kidney is normal in size, contour, and echogenicity. Renal cortical thickness is normal. No calculi or focal parenchymal lesions. No hydronephrosis. LEFT KIDNEY: 9.0 x 5.3 x 4.9 cm (SAG x AP x TRV). The kidney is normal in size, contour, and echogenicity. Renal cortical thickness is normal. No calculi or focal parenchymal lesions. No hydronephrosis. US/US renal BI IMPRESSION: Normal ultrasound of the kidneys.
[2021-03-25 13:29] VITALS: BP 160/76; PULSE 70; RESP 18; TEMP 36.6; O2SAT 100; BMI 46.3
--- NOTE | 2021-03-25 14:18 | PC.NURSE ---
urine obtained, pt c/o nausea
[2021-03-25 14:21] LABS: Color Urine BROWN; Glucose Urine UA NEG (NEG); Leukocyte Esterase Urine 1+ (NEG); Nitrite Urine NEG (NEG); PH 5.5 (5.0-8.0); UACC Culture Trigger YES; Urine Blood 3+ (NEG); Urine Ketones NEG (NEG); Urine Protein 2+ MG/DL (NEG-TRACE)
[2021-03-25 14:22] LABS: Appearance Urine CLOUDY
[2021-03-25 14:27] LABS: Bacteria Urine TRACE /LPF; Squamous Epithelial Cell Urine TRACE /LPF
--- NOTE | 2021-03-25 16:40 | PC.NURSE ---
patient is upset for her long wait in the waiting room, this nurse has explained to the patient multiple times that those that have gone in front of her had higher acuity, the patient is currently upset and states she should have just called an ambulance to get a bed quicker.
[2021-03-25] MEDS: 0.9 % Sodium Chloride 1,000 ML 999 ML IVCONT ×2 (18:42→20:55)
[2021-03-25 18:58] LABS: INTERNATIONAL NORM RATIO 1.4 (0.9-1.1)
[2021-03-25 19:01] LABS: MANUAL DIFF FLAG NO
--- NOTE | 2021-03-25 19:09 | PC.NURSE ---
REPORT TAKEN FROM JAYA CARDOZO, FIRST CONTACT WITH PT. SITTING UP IN BED SKIN PWD RESPIRATIONS EVEN UNLABORED. IVF INFUSING WITHOUT DIFFICULTY. PT REPORTS CONTINUED LEFT FLANK PAIN. AWAITING LAB RESULTS, AWARE OF PLAN OF CARE.
[2021-03-25 19:12] LABS: Basophils Percent Auto 0.1 % (0-2); Eosinophils Percent Auto 0.1 % (0-4); Hematocrit 39.9 % (37-47); Hemoglobin 13.3 g/dl (12.0-16.0); Imm Gran Abs Auto 0.14 X10*3/uL (0.00-0.03); Lymphocytes Absolute Auto 2.1 X10*3/uL (1.2-4.9); Mean Corpuscular HGB Conc 33.3 g/dl (31.0-35.0); Mean Corpuscular Volume 77.9 fL (80-98); Mean Platelet Volume 10.3 fL (9.4-12.3); Monocytes Absolute Auto 0.6 X10*3/uL (0.1-1.2); Monocytes Percent Auto 4.1 % (2-11); Neutrophils Absolute Auto 10.9 X10*3/uL (2.0-8.3); Neutrophils Percent Auto 79.7 % (45-73); Platelet Count 420 X10*3/uL (160-400); Red Blood Count 5.12 X10*6/uL (4.20-5.50); Red Cell Distribution Width 15.3 % (11.0-16.0); White Blood Count 13.6 X10*3/uL (4.8-10.8)
[2021-03-25 19:15] LABS: Partial Thromboplastin Time 110.1 SEC (24.1-38.0)
[2021-03-25 19:52] LABS: Alanine Aminotransferase 26 U/L (0-31); Albumin Level 4.4 g/dL (3.5-5.0); Alkaline Phosphatase 115 U/L (39-117); Anion Gap 16 (12-20); Aspartate Amino Transferase 30 U/L (5-31); Bilirubin Direct 0.3 mg/dL (0.0-0.5); Bilirubin Total 0.8 mg/dL (0.0-1.0); Blood Urea Nitrogen 20 mg/dL (9-16); Calcium 9.4 mg/dL (8.4-10.2); Carbon Dioxide 30 mmol/L (22-29); Chloride 95 mmol/L (96-108); Creatinine Clr Calc Pharmacy 72.1; Estimated Glomerular Filt Rate 59; Glucose Random 122 mg/dL (60-115); Lipase 22 U/L (8-78); Magnesium 1.6 mg/dL (1.6-2.6); Potassium 3.4 mmol/L (3.3-5.1); Sodium 138 mmol/L (135-145); Total Protein 7.8 g/dL (6.5-8.0)
[2021-03-25 20:08] VITALS: BP 148/77; PULSE 86; RESP 24; TEMP 36.3; O2SAT 93
--- NOTE | 2021-03-25 20:37 | ED_ITS ---
HPI - Female Genitourinary General Chief complaint: Urogenital-Female Stated complaint: general Medical Time Seen by Provider: 03/25/21 17:29 Source: patient Mode of arrival: ambulatory History of Present Illness HPI Narrative: 61-year-old female with a past medical history of fibromyalgia, HTN, hypothyroid, lupus, obesity, proximal AFib on Pradaxa, Raynaud's, SVT, cardiomyopathy, presenting to the ED complaining of lower abdominal and b ilateral flank pain with associated dysuria and gross hematuria x1 day. Denies fever, chills, CP/SOB, nausea/vomiting MD elicited complaint: dysuria Related Data Home Medications Medication Instructions Recorded Confirmed alprazolam 0.5 mg tablet 0.5 mg PO TID PRN 08/11/20 02/17/21 ascorbic acid (vitamin C) 250 mg 250 mg PO DAILY 08/11/20 02/17/21 tablet calcium carbonate 600 mg calcium 600 mg PO DAILY 08/11/20 02/17/21 (1,500 mg) tablet docusate sodium 100 mg capsule 100 mg PO BID 08/11/20 02/17/21 ferrous sulfate 325 mg (65 mg 325 mg PO DAILY 08/11/20 02/17/21 iron) tablet fluticasone propionate 110 0 mcg INHALATION 08/11/20 02/17/21 mcg/actuation HFA aerosol inhaler folic acid 1 mg tablet 1 mg PO DAILY 08/11/20 02/17/21 furosemide 20 mg tablet 20 mg PO DAILY 08/11/20 02/17/21 levothyroxine 75 mcg tablet 75 mcg PO DAILY 08/11/20 02/17/21 loratadine 10 mg tablet 10 mg PO DAILY 08/11/20 02/17/21 milnacipran 50 mg tablet 50 mg PO BID 08/11/20 02/17/21 multivitamin 1 tab PO DAILY 08/11/20 02/17/21 omeprazole 20 mg capsule,delayed 20 mg PO DAILY 08/11/20 02/17/21 release pravastatin 20 mg tablet mg PO 08/11/20 02/17/21 Previous Rx's Medication Instructions Recorded metoprolol tartrate 50 mg tablet 50 mg PO BID 90 Days #180 tab 09/02/20 hydrochlorothiazide 25 mg tablet 25 mg PO QAM 90 Days #90 tab 10/27/20 tramadol 50 mg PO Q8H PRN #14 tab 12/03/20 dabigatran etexilate 150 mg capsule 150 mg PO BID 90 Days #180 cap 02/02/21 lisinopril 10 mg tablet 10 mg PO DAILY #28 tab 02/03/21 azithromycin See Rx Instructions .ROUTE 02/07/21 .COMPLEX #6 tab benzonatate [Tessalon Perles] 100 mg PO BID PRN #10 cap 02/07/21 dronedarone 400 mg tablet 400 mg PO BID #60 tab 02/18/21 Allergies Allergy/AdvReac Type Severity Reaction Status Date / Time duloxetine [From CYMBALTA] Allergy Severe Anaphylaxis Verified 03/25/21 13:29 Penicillins Allergy Severe ANAPHYLAXIS Verified 03/25/21 13:29 STEROIDS Allergy Severe UNKNOWN Verified 03/25/21 13:29 Crustaceans Allergy Severe RESP Uncoded 03/25/21 13:29 PROBLEMS SHELLFISH Allergy Severe NUMBNESS Uncoded 03/25/21 13:29 SWELLING MOUTH Cortisone Allergy Unknown unknown Uncoded 09/05/20 12:24 Review of Systems Review of Systems: Constitutional: No Fever, No Chills, No Fatigue, No Malaise Cardiovascular: No Chest Pain, No SOB, No Edema, No Palpitations Respiratory: No Cough, No Dyspnea Gastrointestinal: No Nausea, No Vomiting, + Abdominal pain Genitourinary: No irregular bleeding, + Dysuria, + Urinary Frequency, + Hematuria, + Flank Pain Musculoskeletal: No joint pain, No Myalgias, No Joint Swelling Skin: No Skin Lesions, No rash Neuro: No Weakness, No Numbness, No Dizziness, No Headache Yes all other systems are reviewed and are negative [facility] Past Medical History Attestation statement: The following information was validated with the patient. Medical History Arthritis Back pain, chronic Bronchitis Carpal tunnel syndrome Edema Fibromyalgia Glaucoma HTN (hypertension) Hypothyroid Lupus Migraine Morbid obesity Paroxysmal atrial fibrillation Raynauds disease SVT (supraventricular tachycardia) Takotsubo cardiomyopathy Tendinitis Thyroid nodule Surgical History History of total bilateral knee replacement (TKR) Hx of cholecystectomy Hx of tonsillectomy Family History Family History Father No problems noted. Mother CVD (cardiovascular disease) Brother Stomach cancer Social History Social History Advance Directives: Yes Advance Directives Information Provided: Yes Advance Directives on File: No Patient : No Current occupational status: disabled Current occupation: right handed Physical Exam Vital Signs: Vital Signs: Last Vital Signs Temp 97.3 F 03/25/21 20:08 Pulse 86 03/25/21 20:08 Resp 24 H 03/25/21 20:08 BP 148/77 H 03/25/21 20:08 Pulse Ox 93 03/25/21 20:08 Body Mass Index 46.3 Const: General: cooperative, healthy appearing and no acute distress Orientation/consciousness: patient oriented x3 Limitations: no limitations HENMT: Head: Yes normal to inspection Ears: hearing grossly normal bilaterally General nose exam: Normal external nose present Face and sinus: Yes normal facial exam Eyes: General: appearance normal, both eyes and all related structures EOM: EOMs intact bilaterally Neck: Neck: Yes normal visual inspection Resp: Effort & Inspection: normal respiratory effort, no grunting and not labored Cardio: Rate: regular rate GI: Inspection: Yes normal to inspection Palpation (GI): Soft to palpation, Tenderness to palpation present (GI) (Suprapubic), no guarding and not rigid : General: Yes CVA tenderness (Greater on the right) bilateral Skin: Rashes: no rashes Wounds: no wounds Neuro: General: patient oriented x3 Gait exam (Neuro): Normal gait present Extrem: General: Yes normal to inspection Course Course Course Narrative: US renal BI IMPRESSION: Normal ultrasound of the kidneys. - leukocytosis 13.6, H&H stable, PTT very elevated at 110 likely from Pradaxa - labs otherwise unremarkable, UA infected and with multiple RBCs >> IV Ceftriaxone ordered > plan to admit for further management MDM - Female Genitourinary MDM Narrative Medical decision making narrative: 61-year-old female with a past medical history of fibromyalgia, HTN, hypothyroid, lupus, obesity, proximal AFib on Pradaxa, Raynaud's, SVT, cardiomyopathy, presenting to the ED complaining of lower abdominal and bilateral flank pain with associated dysuria and gross hematuria x1 day. On exam VSS, NAD/nontoxic, abdomen soft with lower/suprapubic ttp and bilateral CVAT. Concern for pyelonephritis/UTI vs renal stone. Rule ou t anemia Plan: Labs, UA, renal ultrasound, IVF, reassess Lab Data Result diagrams: 03/25/21 18:55 03/25/21 18:55 Labs: Lab Results 03/25/21 03/25/21 03/25/21 Range/Units 14:15 18:39 18:55 WBC (4.8-10.8) X10*3/uL RBC (4.20-5.50) X10*6/uL Hgb (12.0-16.0) g/dl Hct (37-47) % MCV (80-98) fL MCH (27.0-33.0) pg MCHC (31.0-35.0) g/dl RDW (11.0-16.0) % Plt Count (160-400) X10*3/uL MPV (9.4-12.3) fL Immature Gran % (Auto) (0.0-0.4) % Neut % (Auto) (45-73) % Lymph % (Auto) (20-40) % [place] % (Auto) (2-11) % Eos % (Auto) (0-4) % Baso % (Auto) (0-2) % Lymph # (Auto) (1.2-4.9) X10*3/uL [place] # (Auto) (0.1-1.2) X10*3/uL Eos # (Auto) (0.0-0.4) X10*3/uL Baso # (Auto) (0.0-0.2) X10*3/uL Abs Immat Gran (auto) (0.00-0.03) X10*3/uL Absolute Neuts (auto) (2.0-8.3) X10*3/uL Absolute Nucleated RBC (0.0-0.012) X10*3/uL Nucleated RBC % (auto) (0.0-0.2) /100WBC PT 17.0 H (10.8-13.0) SEC INR 1.4 H (0.9-1.1) APTT 110.1 H* (24.1-38.0) SEC Sodium (135-145) mmol/L Potassium (3.3-5.1) mmol/L Chloride (96-108) mmol/L Carbon Dioxide (22-29) mmol/L Anion Gap (12-20) BUN (9-16) mg/dL Creatinine (0.5-1.4) mg/dL Estim Creat Clear Calc Estimated GFR Random Glucose (60-115) mg/dL Calcium (8.4-10.2) mg/dL Magnesium (1.6-2.6) mg/dL Total Bilirubin (0.0-1.0) mg/dL Direct Bilirubin (0.0-0.5) mg/dL AST (5-31) U/L ALT (0-31) U/L Alkaline Phosphatase (39-117) U/L Total Creatine Kinase 91 (26-140) U/L Total Protein (6.5-8.0) g/dL Albumin (3.5-5.0) g/dL Lipase (8-78) U/L Urine Color BROWN Urine Appearance CLOUDY Urine pH 5.5 (5.0-8.0) Ur Specific [place] 1.020 (1.005-1.025) Urine Protein 2+ H (NEG-TRACE) MG/DL Urine Glucose (UA) NEG (NEG) MG/DL Urine Ketones NEG (NEG) MG/DL Urine Blood 3+ H (NEG) Urine Nitrite NEG (NEG) Ur Leukocyte Esterase 1+ H (NEG) Urine RBC 76-150 H (0) /HPF Urine WBC 10-14 H (0-4) /HPF Ur Squamous Epith Cells TRACE /LPF Urine Bacteria TRACE /LPF 03/25/21 03/25/21 Range/Units 18:55 18:55 WBC 13.6 H (4.8-10.8) X10*3/uL RBC 5.12 (4.20-5.50) X10*6/uL Hgb 13.3 (12.0-16.0) g/dl Hct 39.9 (37-47) % MCV 77.9 L (80-98) fL MCH 26.0 L (27.0-33.0) pg MCHC 33.3 (31.0-35.0) g/dl RDW 15.3 (11.0-16.0) % Plt Count 420 H (160-400) X10*3/uL MPV 10.3 (9.4-12.3) fL Immature Gran % (Auto) 1.0 H (0.0-0.4) % Neut % (Auto) 79.7 H (45-73) % Lymph % (Auto) 15.0 L (20-40) % [place] % (Auto) 4.1 (2-11) % Eos % (Auto) 0.1 (0-4) % Baso % (Auto) 0.1 (0-2) % Lymph # (Auto) 2.1 (1.2-4.9) X10*3/uL [place] # (Auto) 0.6 (0.1-1.2) X10*3/uL Eos # (Auto) 0.0 (0.0-0.4) X10*3/uL Baso # (Auto) 0.0 (0.0-0.2) X10*3/uL Abs Immat Gran (auto) 0.14 H (0.00-0.03) X10*3/uL Absolute Neuts (auto) 10.9 H (2.0-8.3) X10*3/uL Absolute Nucleated RBC 0.000 (0.0-0.012) X10*3/uL Nucleated RBC % (auto) 0.0 (0.0-0.2) /100WBC PT (10.8-13.0) SEC INR (0.9-1.1) APTT (24.1-38.0) SEC Sodium 138 (135-145) mmol/L Potassium 3.4 (3.3-5.1) mmol/L Chloride 95 L (96-108) mmol/L Carbon Dioxide 30 H (22-29) mmol/L Anion Gap 16 (12-20) BUN 20 H (9-16) mg/dL Creatinine 0.97 (0.5-1.4) mg/dL Estim Creat Clear Calc 72.1 Estimated GFR 59 Random Glucose 122 H (60-115) mg/dL Calcium 9.4 (8.4-10.2) mg/dL Magnesium 1.6 (1.6-2.6) mg/dL Total Bilirubin 0.8 (0.0-1.0) mg/dL Direct Bilirubin 0.3 (0.0-0.5) mg/dL AST 30 (5-31) U/L ALT 26 (0-31) U/L Alkaline Phosphatase 115 (39-117) U/L Total Creatine Kinase (26-140) U/L Total Protein 7.8 (6.5-8.0) g/dL Albumin 4.4 (3.5-5.0) g/dL Lipase 22 (8-78) U/L Urine Color Urine Appearance Urine pH (5.0-8.0) Ur Specific [place] (1.005-1.025) Urine Protein (NEG-TRACE) MG/DL Urine Glucose (UA) (NEG) MG/DL Urine Ketones (NEG) MG/DL Urine Blood (NEG) Urine Nitrite (NEG) Ur Leukocyte Esterase (NEG) Urine RBC (0) /HPF Urine WBC (0-4) /HPF Ur Squamous Epith Cells /LPF Urine Bacteria /LPF Discharge Plan Discharge Clinical Impression: Pyelonephritis, Hematuria, Elevated partial thromboplastin time (PTT) Patient Disposition: Admitted As Inpatient Prescriptions: No Action metoprolol tartrate 50 mg tablet 50 mg PO BID 90 Days Qty: 180 RF: 3 hydrochlorothiazide 25 mg tablet 25 mg PO QAM 90 Days Qty: 90 RF: 1 dabigatran etexilate [Pradaxa] 150 mg capsule 150 mg PO BID 90 Days Qty: 180 RF: 1 lisinopril 10 mg tablet 10 mg PO DAILY Qty: 28 RF: 5 Multaq 400 mg tablet 400 mg PO BID Qty: 60 RF: 5 azithromycin 250 mg tablet See Rx Instructions .ROUTE .COMPLEX Qty: 6 RF: 0 benzonatate [Tessalon Perles] 100 mg capsule 100 mg PO BID PRN (Reason: cough) Qty: 10 RF: 0 tramadol 50 mg tablet 50 mg PO Q8H PRN (Reason: pain) Qty: 14 RF: 0 folic acid 1 mg tablet 1 mg PO DAILY RF: 0 Savella 50 mg tablet 50 mg PO BID RF: 0 loratadine 10 mg tablet 10 mg PO DAILY RF: 0 furosemide 20 mg tablet 20 mg PO DAILY RF: 0 pravastatin 20 mg tablet PO RF: 0 omeprazole 20 mg capsule,delayed release(DR/EC) 20 mg PO DAILY RF: 0 docusate sodium 100 mg capsule 100 mg PO BID RF: 0 ferrous sulfate 325 mg (65 mg iron) tablet 325 mg PO DAILY RF: 0 ascorbic acid (vitamin C) 250 mg tablet 250 mg PO DAILY RF: 0 calcium carbonate 600 mg calcium (1,500 mg) tablet 600 mg PO DAILY RF: 0 levothyroxine 75 mcg tablet 75 mcg PO DAILY RF: 0 multivitamin Tablet 1 tab PO DAILY RF: 0 alprazolam 0.5 mg tablet 0.5 mg PO TID PRNRF: 0 Flovent HFA 110 mcg/actuation HFA aerosol inhaler 0 mcg inhalation RF: 0
[2021-03-25] MEDS: Acetaminophen 325 MG TABLET 650 MG PO (20:55)
[2021-03-25] MEDS: cefTRIAXone sodium 1 GM in 0.9 % Sodium Chloride 50 ML IV (20:55)
--- NOTE | 2021-03-25 20:58 | PC.NURSE ---
antibiotic held at this time, not yet administered, pending blood culture draw.
--- NOTE | 2021-03-25 21:16 | PM.IMHP ---
History of Present Illness Date of Service: 03/25/21 Chief Complaint: Hematuria 61-year-old female with a past medical history of hypertension, hypothyroidism, history of Raynaud disease, history of takotsubo cardiomyopathy, AFib on Pradaxa, fibromyalgia, hypothyroidism, chronic back pain, arthritis status post bilateral knee replacement, history of cholecystectomy, lupus, migraines, obesity presented to the hospital with a chief complaint of lower abdominal pain and bilateral flank pain for the past 1 day. Complains of gross bloody urine. Reports burning/ frequency. Patient mentions that she has been compliant with her home medications. Denies lightheadedness or dizziness. Denies headaches, blurry vision, focal weakness. Patient denies any nausea vomiting diarrhea. Denies any chest pain or palpitations. Review of all other systems is negative except mentioned above ER course: Per ER team patient noted to have stable hemoglobin, gross hematuria, tender in the lower abdomen, ultrasound noted to have bilateral CVA tenderness, UA abnormal with hematuria and findings consistent sting with infection; given ceftriaxone for presumed pyelonephritis. Also noted to have elevated PTT-patient on Pradaxa. ER team spoke to Dr. castro who recommended admission to Medicine Service continue antibiotics. [facility] Medical History Arthritis Back pain, chronic Bronchitis Carpal tunnel syndrome Edema Fibromyalgia Glaucoma HTN (hypertension) Hypothyroid Lupus Migraine Morbid obesity Paroxysmal atrial fibrillation Raynauds disease SVT (supraventricular tachycardia) Takotsubo cardiomyopathy Tendinitis Thyroid nodule Family History Father No problems noted. Mother CVD (cardiovascular disease) Brother Stomach cancer Surgical History History of total bilateral knee replacement (TKR) Hx of cholecystectomy Hx of tonsillectomy Social History Household Members: Family Housing: Apartment Do you presently have visiting nurse or other home services: Yes (son helps with bathing) Patient Tobacco Use Status: Never used Tobacco Use of substances other than those prescribed or required for medical reasons: No Currently Displaying Signs/Symptoms of Drug Intoxication Withdrawal: No Do you feel safe in your current relationship?: Yes Is there a partner from a previous relationship who is making you feel unsafe now?: No Are you made to feel afraid or neglected: No Advance Directives: Yes Advance Directives Information Provided: Yes Advance Directives on File: No Advance Directives Date on File: 03/25/21 Do you have thoughts of harming others: None Do you have a plan to hurt others: No Plan How much weight loss: 14-23 pounds Eating poorly because of decreased appetite: No Nutrition Risks: No Nutritional Risk Patient : No service: No Current occupational status: disabled Current occupation: right handed Meds Allergies Allergy/AdvReac Type Severity Reaction Status Date / Time duloxetine [From CYMBALTA] Allergy Severe Anaphylaxis Verified 03/25/21 13:29 Penicillins Allergy Severe ANAPHYLAXIS Verified 03/25/21 13:29 STEROIDS Allergy Severe UNKNOWN Verified 03/25/21 13:29 Crustaceans Allergy Severe RESP Uncoded 03/25/21 13:29 PROBLEMS SHELLFISH Allergy Severe NUMBNESS Uncoded 03/25/21 13:29 SWELLING MOUTH Cortisone Allergy Unknown unknown Uncoded 09/05/20 12:24 Active Medications: Current Medications Generic Name Dose Route Start Last Admin Trade Name Freq PRN Reason Stop Dose Admin Acetaminophen 650 mg 03/25/21 21:08 Acetaminophen 325 Mg Tablet PO Q6H PRN Pain, Mild (Pain Scale 1-3) Sodium Chloride 1,000 mls @ 999 mls/hr 03/25/21 21:00 03/25/21 20:55 Ns IVCONT 03/25/21 22:00 999 mls/hr .Q1H1M FRANDY Administration Ceftriaxone Sodium 1 gm/ 50 mls @ 100 mls/hr 03/25/21 21:15 Sodium Chloride IV Q24H FRANDY Sodium Chloride 1,000 mls @ 100 mls/hr 03/25/21 21:15 Ns IVCONT .Q10H FRANDY Senna 17.2 mg 03/25/21 22:00 Sennosides 8.6 Mg Tablet PO BEDTIME PRN Constipation Sodium Chloride 3 ml 03/26/21 00:00 0.9 % Sodium Chloride Flush 3 Ml Syringe IVFLUSH QSHIFT [facility] Home Medications Medication Instructions Recorded Confirmed Last Taken Type alprazolam 0.5 mg tablet 0.5 mg PO TID PRN 08/11/20 03/25/21 Unknown History ascorbic acid (vitamin C) 250 mg 250 mg PO DAILY 08/11/20 03/25/21 03/25/21 History tablet calcium carbonate 600 mg calcium 600 mg PO DAILY 08/11/20 03/25/21 03/25/21 History (1,500 mg) tablet docusate sodium 100 mg capsule 100 mg PO BID 08/11/20 03/25/21 03/25/21 History ferrous sulfate 325 mg (65 mg 325 mg PO DAILY 08/11/20 03/25/21 03/25/21 History iron) tablet fluticasone propionate 110 2 puff INHALATION BID 08/11/20 03/25/21 03/25/21 History mcg/actuation HFA aerosol inhaler folic acid 1 mg tablet 1 mg PO DAILY 08/11/20 03/25/21 03/25/21 History furosemide 20 mg tablet 20 mg PO DAILY 08/11/20 03/25/21 03/25/21 History levothyroxine 75 mcg tablet 75 mcg PO DAILY 08/11/20 03/25/21 03/25/21 History loratadine 10 mg tablet 10 mg PO DAILY 08/11/20 03/25/21 03/25/21 History milnacipran 50 mg tablet 50 mg PO BID 08/11/20 03/25/21 03/25/21 History multivitamin 1 tab PO DAILY 08/11/20 03/25/21 03/25/21 History omeprazole 20 mg capsule,delayed 20 mg PO DAILY 08/11/20 03/25/21 03/25/21 History release pravastatin 20 mg tablet 20 mg PO BEDTIME 08/11/20 03/25/21 03/24/21 History fluticasone propionate 1 spray INTRANASAL BID PRN 03/25/21 03/25/21 Unknown History meclizine 1 tab PO QID PRN 03/25/21 03/25/21 03/25/21 History Physical Exam Vital Signs and Narrative: Vital Signs: Last Vital Signs Temp 97.3 F 03/25/21 20:08 Pulse 86 03/25/21 20:08 Resp 24 H 03/25/21 20:08 BP 148/77 H 03/25/21 20:08 Pulse Ox 93 03/25/21 20:08 Body Mass Index 46.3 Gen: Appears be in no acute distress HEENT: NCAT, Moist mucosa. Pulmonary: Vesicular breath sounds, fair air entry CVS: Normal S1-S2 Abdomen: BS+, Soft, nontender abdomen; no guarding no rigidity. Noted bilateral CVA tenderness. Extremities: Warm well perfused Neuro: Alert and awake. Results Labs CBC and Chem 7: 03/27/21 05:51 03/27/21 05:51 Labs: Laboratory Results - last 24 hr 03/25/21 03/25/21 03/25/21 14:15 18:39 18:55 MCV MCH MCHC RDW Plt Count MPV Immature Gran % (Auto) Neut % (Auto) Lymph % (Auto) [place] % (Auto) Eos % (Auto) Baso % (Auto) Lymph # (Auto) [place] # (Auto) Eos # (Auto) Baso # (Auto) Abs Immat Gran (auto) Absolute Neuts (auto) Absolute Nucleated RBC Nucleated RBC % (auto) PT 17.0 H INR 1.4 H APTT 110.1 H* Anion Gap Estim Creat Clear Calc Estimated GFR Random Glucose Calcium Magnesium Total Bilirubin Direct Bilirubin AST ALT Alkaline Phosphatase Total Creatine Kinase 91 Total Protein Albumin Lipase Urine Color BROWN Urine Appearance CLOUDY Urine pH 5.5 Ur Specific [place] 1.020 Urine Protein 2+ H Urine Glucose (UA) NEG Urine Ketones NEG Urine Blood 3+ H Urine Nitrite NEG Ur Leukocyte Esterase 1+ H Urine RBC 76-150 H Urine WBC 10-14 H Ur Squamous Epith Cells TRACE Urine Bacteria TRACE 03/25/21 03/25/21 18:55 18:55 MCV 77.9 L MCH 26.0 L MCHC 33.3 RDW 15.3 Plt Count 420 H MPV 10.3 Immature Gran % (Auto) 1.0 H Neut % (Auto) 79.7 H Lymph % (Auto) 15.0 L [place] % (Auto) 4.1 Eos % (Auto) 0.1 Baso % (Auto) 0.1 Lymph # (Auto) 2.1 [place] # (Auto) 0.6 Eos # (Auto) 0.0 Baso # (Auto) 0.0 Abs Immat Gran (auto) 0.14 H Absolute Neuts (auto) 10.9 H Absolute Nucleated RBC 0.000 Nucleated RBC % (auto) 0.0 PT INR APTT Anion Gap 16 Estim Creat Clear Calc 72.1 Estimated GFR 59 Random Glucose 122 H Calcium 9.4 Magnesium 1.6 Total Bilirubin 0.8 Direct Bilirubin 0.3 AST 30 ALT 26 Alkaline Phosphatase 115 Total Creatine Kinase Total Protein 7.8 Albumin 4.4 Lipase 22 Urine Color Urine Appearance Urine pH Ur Specific [place] Urine Protein Urine Glucose (UA) Urine Ketones Urine Blood Urine Nitrite Ur Leukocyte Esterase Urine RBC Urine WBC Ur Squamous Epith Cells Urine Bacteria Imaging Radiologist's Impressions: Impressions Renal Ultrasound 03/25/21 17:36 IMPRESSION: Normal ultrasound of the kidneys. Assessment and Plan (1) UTI (urinary tract infection): Status: Acute 61-year-old female with a past medical history of hypertension, hyperlipidemia, hypothyroidism, cardiomyopathy, AFib on Pradaxa, fibromyalgia, chronic back pain, anxiety, history of arthritis status post knee replacements presented to the hospital with a chief complaint of dysuria/lower abdominal pain/bloody urine. Noted to have bilateral CVA tenderness. Concern for pyelonephritis. Admitted for further management. Pyelonephritis: Continue ceftriaxone. Follow up cultures. Lactic acidosis: Patient on gentle fluids. Hematuria: Will continue IV fluids. Hold Pradaxa. Serial H&H. Currently hemoglobin stable. Dr. castro from Urology was notified. Elevated PTT: Likely in setting of Pradaxa. Other than hematuria no other signs of bleeding noted. Hemoglobin stable; vitals stable. If the follow-up hemoglobin drops will consider Kcentra. History of cardiomyopathy: Patient on Lasix 20 mg at home. Will hold for now. Monitor for signs of fluid overload. History of AFib: Rate controlled. Pradaxa on hold as mention. Patient on to monitor on at home. Continue home metoprolol. Hypertension/hyperlipidemia: Continue home lisinopril, statin. Hold hydrochlorothiazide. History of chronic back pain: Continue home tramadol. DVT prophylaxis: SCD boots Code status: Full code Quality Stroke Does the patient have a stroke diagnosis?: No VTE Prior VTE?: No VTE Risk Level:: Medical - moderate - high VTE Device Contraindication: N/A - Device Ordered VTE Drug Contraindication: N/A - Med Ordered
--- NOTE | 2021-03-25 21:22 | ECG_ITS ---
Test Reason : INFECTION Blood Pressure : / mmHG Vent. Rate : 079 BPM Atrial Rate : 079 BPM P-R Int : 162 ms QRS Dur : 094 ms QT Int : 478 ms P-R-T Axes : 058 001 041 degrees QTc Int : 548 ms Normal sinus rhythm Low voltage QRS Cannot rule out Anterior infarct , age undetermined Abnormal ECG When compared with ECG of 03-DEC-2020 15:29, QT has lengthened Referred By: Cris Salas Electronically Signed By:Adam Saleem
[2021-03-25 21:58] LABS: COVID-19 Test Negative (Negative); IDNOW Serial# 9DD0AD1C
--- NOTE | 2021-03-25 22:02 | PHA.MEDREC ---
Pharmacy Consult ? Medication Reconciliation Pharmacy has completed the medication reconciliation.
[2021-03-25 22:07] LABS: Lactic Acid 3.4 mmol/L (0.5-2.0)
[2021-03-25 22:11] VITALS: BP 128/64; PULSE 99; RESP 16; TEMP 36.8; O2SAT 97
[2021-03-25 23:29] LABS: Reflex Lactate? Lactic Acid Added
[2021-03-25 23:31] VITALS: BMI 48.0
[2021-03-25 23:38] VITALS: BP 117/66; PULSE 80; RESP 16; TEMP 36.6; O2SAT 99
[2021-03-25] MEDS: 0.9 % Sodium Chloride 1,000 ML 100 ML IVCONT (23:57)
[2021-03-26] VITALS (8 sets, daily range): BP systolic 99–120; BP diastolic 56–71; PULSE 67–99; RESP 16–20; TEMP 36–36.8; O2SAT 95–98; BMI 48.9
[2021-03-26] MEDS: ALPRAZolam 0.5 MG TABLET PO ×3 (01:06→20:35)
[2021-03-26 01:46] LABS: Glucose Urine UA NEG (NEG); Leukocyte Esterase Urine 3+ (NEG); Nitrite Urine POS (NEG); UACC Culture Trigger YES; Urine Blood 3+ (NEG); Urine Ketones NEG (NEG); Urine Protein 2+ MG/DL (NEG-TRACE)
[2021-03-26 01:47] LABS: Appearance Urine CLOUDY; Color Urine BROWN
[2021-03-26 01:55] LABS: Reflex Lactate? 2 Y
[2021-03-26 01:56] LABS: Bacteria Urine 2+ /LPF; Squamous Epithelial Cell Urine 2+ /LPF
[2021-03-26 02:06] LABS: Hematocrit 34.6 % (37-47); Hemoglobin 11.7 g/dl (12.0-16.0); Mean Corpuscular HGB Conc 33.8 g/dl (31.0-35.0); Mean Corpuscular Hemoglobin 26.4 pg (27.0-33.0); Mean Corpuscular Volume 77.9 fL (80-98); Mean Platelet Volume 10.3 fL (9.4-12.3); Platelet Count 345 X10*3/uL (160-400); Red Blood Count 4.44 X10*6/uL (4.20-5.50); Red Cell Distribution Width 15.4 % (11.0-16.0); White Blood Count 11.9 X10*3/uL (4.8-10.8)
[2021-03-26 02:29] LABS: ~Lactic Acid-LAB USE ONLY 1.5 mmol/L (0.5-2.0)
[2021-03-26] MEDS: Omeprazole 20 MG CAPSULE.DR PO (05:32)
[2021-03-26] MEDS: Levothyroxine Sodium 75 MCG TABLET PO (05:33)
[2021-03-26 06:25] LABS: Basophils Percent Auto 0.2 % (0-2); Eosinophils Absolute Auto 0.1 X10*3/uL (0.0-0.4); Eosinophils Percent Auto 0.5 % (0-4); Hemoglobin 11.3 g/dl (12.0-16.0); Imm Gran Abs Auto 0.03 X10*3/uL (0.00-0.03); Imm Gran Pct Auto 0.3 % (0.0-0.4); Lymphocytes Absolute Auto 2.4 X10*3/uL (1.2-4.9); MANUAL DIFF FLAG NO; Mean Corpuscular HGB Conc 34.2 g/dl (31.0-35.0); Mean Corpuscular Hemoglobin 26.4 pg (27.0-33.0); Mean Corpuscular Volume 77.1 fL (80-98); Monocytes Absolute Auto 0.8 X10*3/uL (0.1-1.2); Monocytes Percent Auto 7.8 % (2-11); Neutrophils Absolute Auto 6.8 X10*3/uL (2.0-8.3); Neutrophils Percent Auto 67.2 % (45-73); Platelet Count 324 X10*3/uL (160-400); Red Blood Count 4.28 X10*6/uL (4.20-5.50); Red Cell Distribution Width 15.2 % (11.0-16.0); White Blood Count 10.1 X10*3/uL (4.8-10.8)
[2021-03-26 06:30] LABS: INTERNATIONAL NORM RATIO 1.3 (0.9-1.1); Prothrombin Time 15.3 SEC (10.8-13.0)
[2021-03-26 06:43] LABS: Partial Thromboplastin Time 66.3 SEC (24.1-38.0)
[2021-03-26 06:45] LABS: Lactic Acid 1.1 mmol/L (0.5-2.0)
[2021-03-26 07:09] LABS: Anion Gap 14 (12-20); Blood Urea Nitrogen 16 mg/dL (9-16); Calcium 8.4 mg/dL (8.4-10.2); Carbon Dioxide 28 mmol/L (22-29); Chloride 100 mmol/L (96-108); Creatinine Clr Calc Pharmacy 95.2; Estimated Glomerular Filt Rate > 60; Glucose Random 108 mg/dL (60-115); Sodium 139 mmol/L (135-145)
[2021-03-26] MEDS: Ascorbic Acid 250 MG TABLET PO (08:16)
[2021-03-26] MEDS: Dronedarone HCl 400 MG TABLET PO ×2 (08:16→20:31)
[2021-03-26] MEDS: Docusate Sodium 100 MG CAPSULE PO ×2 (08:16→20:31)
[2021-03-26] MEDS: Folic Acid 1 MG TABLET PO (08:17)
[2021-03-26] MEDS: Multivitamin TABLET 1 TAB PO (08:17)
[2021-03-26] MEDS: Loratadine 10 MG TABLET PO (08:17)
[2021-03-26] MEDS: lisinopriL 10 MG TABLET PO (08:17)
[2021-03-26] MEDS: 0.9 % Sodium Chloride Flush 3 ML SYRINGE IVFLUSH ×2 (08:18→15:59)
[2021-03-26] MEDS: Metoprolol Tartrate 50 MG TABLET PO ×2 (08:18→20:31)
[2021-03-26 09:00] LABS: Magnesium 1.7 mg/dL (1.6-2.6)
--- NOTE | 2021-03-26 09:21 | MHC.CM.PN ---
CM met with Patient at bedside and addressed IMM, providing her with the original and placing a copy in the chart. Patient lives with her Son/CLASSIFICATION AND TREATMENT DIRECTOR/HCP/[place] at [phone], in an apartment and she uses a cane and crutches to assist with mobility. Patient describes multiple medical conditions and losses and states that she has a MH Therapist who she calls whenever she wants to talk. Patient's goal is to return home and resume/increase CLASSIFICATION AND TREATMENT DIRECTOR hours if possible and CM has initiated and will follow for dc planning. PCP is Dr. Mercedes Pandya.
--- NOTE | 2021-03-26 12:02 | MHC.CLN ---
PT REPORTED WT LOSS 14-23# UPON NURSING ADMISSION ASSESSMENT PREVIOUS WT HX REVEALS UBW 245# (06/30/20) PT ACTUALLY WITH 6% WT GAIN X 1 YEAR PT DOES NOT TRIGGER FOR SIGNIFICANT WT CHANGES AT THIS TIME PT IS MORBIDLY OBESE FOR HT WITH BMI 48.9 AND WT LOSS RECOMMENDED RECOMMEND 1500DM DIET TO PROMOTE SLOW WT LOSS
[2021-03-26] MEDS: 0.9 % Sodium Chloride 1,000 ML 100 ML IVCONT ×2 (12:10→22:35)
[2021-03-26] MEDS: Potassium Chloride ER 20 MEQ TAB.ER.PRT 40 MEQ PO (12:12)
--- NOTE | 2021-03-26 16:25 | P.PNIM_ITS ---
Subjective Subjective Date of Service: 03/26/21 Interval History: Dysuria/frequency improved Notes gross hematuria Suprapubic and R flank discomfort No N/V Physical Exam Vital Signs: Vital Signs: Last Vital Signs Temp 98 F 03/26/21 15:26 Pulse 84 03/26/21 15:26 Resp 20 03/26/21 15:26 BP 118/67 03/26/21 15:26 Pulse Ox 98 03/26/21 15:26 Body Mass Index 48.9 Gen: in no acute distress HEENT: sclera anicteric, moist mucus membranes Neck: supple Lungs: clear to auscultation bilaterally Heart: regular rate and rhythm, no murmurs Abd: morbidly obese, soft, non-tender, non-distended Ext: no edema Skin: warm/well-perfused Neuro: alert and oriented x3, no focal findings Psych: appropriate affect Objective Data Current Medications Generic Name Dose Route Start Last Admin Trade Name Freq PRN Reason Stop Dose Admin Acetaminophen 650 mg 03/25/21 21:08 Acetaminophen 325 Mg Tablet PO Q6H PRN Pain, Mild (Pain Scale 1-3) Alprazolam 0.5 mg 03/25/21 23:14 03/26/21 08:17 Alprazolam 0.5 Mg Tablet PO 0.5 mg TID PRN Administration Anxiety Ascorbic Acid 250 mg 03/26/21 09:00 03/26/21 08:16 Ascorbic Acid 250 Mg Tablet PO 250 mg DAILY FRANDY Administration Calcium Carbonate 600 mg 03/26/21 08:00 03/26/21 08:18 Calcium Carbonate 500 Mg Tablet PO Not Given DAILY@0800 FRANDY Docusate Sodium 100 mg 03/26/21 09:00 03/26/21 08:16 Docusate Sodium 100 Mg Capsule PO 100 mg BID FRANDY Administration Dronedarone 400 mg 03/26/21 09:00 03/26/21 08:16 Dronedarone Hcl 400 Mg Tablet PO 400 mg BID FRANDY Administration Folic Acid 1 mg 03/26/21 09:00 03/26/21 08:17 Folic Acid 1 Mg Tablet PO 1 mg DAILY FRANDY Administration Hydromorphone HCl 0.5 mg 03/26/21 06:41 Hydromorphone Hcl 0.5 Mg/0.5 Ml Syringe IVPUSH Q4H PRN Breakthrough Pain Ceftriaxone Sodium 1 gm/ 50 mls @ 100 mls/hr 03/25/21 22:00 03/25/21 21:35 Sodium Chloride IV Not Given Q24H [facility] Sodium Chloride 1,000 mls @ 100 mls/hr 03/25/21 21:30 03/26/21 12:10 Ns IVCONT 100 mls/hr .Q10H FRANDY Administration Levothyroxine Sodium 75 mcg 03/26/21 06:30 03/26/21 05:33 Levothyroxine Sodium 75 Mcg Tablet PO 75 mcg DAILY@0630 [facility] Administration Lisinopril 10 mg 03/26/21 09:00 03/26/21 08:17 Lisinopril 10 Mg Tablet PO 10 mg DAILY [facility] Administration Protocol Loratadine 10 mg 03/26/21 09:00 03/26/21 08:17 Loratadine 10 Mg Tablet PO 10 mg DAILY [facility] Administration Meclizine HCl 25 mg 03/25/21 23:14 Meclizine Hcl 25 Mg Tablet PO QID PRN dizziness Metoprolol Tartrate 50 mg 03/26/21 09:00 03/26/21 08:18 Metoprolol Tartrate 50 Mg Tablet PO 50 mg BID [facility] Administration Protocol Multivitamins/Vitamin C 1 tab 03/26/21 09:00 03/26/21 08:17 Multivitamin Tablet PO 1 tab DAILY [facility] Administration Non-Formulary Medication 50 mg 03/26/21 09:00 Milnacipran PO BID [facility] Omeprazole 20 mg 03/26/21 06:30 03/26/21 05:32 Omeprazole 20 Mg Capsule.Dr PO 20 mg DAILY@0630 [facility] Administration Pharmacy Consult 1 each 03/25/21 21:16 Consult Rx Perform Med Rec MISCELLANE ONCE PRN Consult order Pravastatin Sodium 20 mg 03/26/21 21:00 Pravastatin Sodium 20 Mg Tablet PO BEDTIME [facility] Senna 17.2 mg 03/25/21 22:00 Sennosides 8.6 Mg Tablet PO BEDTIME PRN Constipation Sodium Chloride 3 ml 03/26/21 00:00 03/26/21 15:59 0.9 % Sodium Chloride Flush 3 Ml Syringe IVFLUSH 3 ml QSHIFT [facility] Administration Labs CBC & Chem 7: 03/26/21 06:00 03/26/21 06:00 Labs: Laboratory Results - last 24 hr 03/25/21 03/25/21 03/25/21 18:39 18:55 18:55 WBC 13.6 H RBC 5.12 Hgb 13.3 Hct 39.9 MCV 77.9 L MCH 26.0 L MCHC 33.3 RDW 15.3 Plt Count 420 H MPV 10.3 Immature Gran % (Auto) 1.0 H Neut % (Auto) 79.7 H Lymph % (Auto) 15.0 L [place] % (Auto) 4.1 Eos % (Auto) 0.1 Baso % (Auto) 0.1 Lymph # (Auto) 2.1 [place] # (Auto) 0.6 Eos # (Auto) 0.0 Baso # (Auto) 0.0 Abs Immat Gran (auto) 0.14 H Absolute Neuts (auto) 10.9 H Absolute Nucleated RBC 0.000 Nucleated RBC % (auto) 0.0 PT 17.0 H INR 1.4 H APTT 110.1 H* Sodium Potassium Chloride Carbon Dioxide Anion Gap BUN Creatinine Estim Creat Clear Calc Estimated GFR Random Glucose Lactic Acid Lactic Acid Fup @ 2Hr Lactic Acid Fup @ 4Hr Calcium Magnesium Total Bilirubin Direct Bilirubin AST ALT Alkaline Phosphatase Total Creatine Kinase 91 Total Protein Albumin Lipase Urine Color Urine Appearance Urine pH Ur Specific [place] Urine Protein Urine Glucose (UA) Urine Ketones Urine Blood Urine Nitrite Ur Leukocyte Esterase Urine RBC Urine WBC Ur Squamous Epith Cells Urine Bacteria COVID-19 (JANET) COVID-19 Clin Com 03/25/21 03/25/21 03/25/21 18:55 21:27 21:31 WBC RBC Hgb Hct MCV MCH MCHC RDW Plt Count MPV Immature Gran % (Auto) Neut % (Auto) Lymph % (Auto) [place] % (Auto) Eos % (Auto) Baso % (Auto) Lymph # (Auto) [place] # (Auto) Eos # (Auto) Baso # (Auto) Abs Immat Gran (auto) Absolute Neuts (auto) Absolute Nucleated RBC Nucleated RBC % (auto) PT INR APTT Sodium 138 Potassium 3.4 Chloride 95 L Carbon Dioxide 30 H Anion Gap 16 BUN 20 H Creatinine 0.97 Estim Creat Clear Calc 72.1 Estimated GFR 59 Random Glucose 122 H Lactic Acid 3.4 H* Lactic Acid Fup @ 2Hr Lactic Acid Fup @ 4Hr Calcium 9.4 Magnesium 1.6 Total Bilirubin 0.8 Direct Bilirubin 0.3 AST 30 ALT 26 Alkaline Phosphatase 115 Total Creatine Kinase Total Protein 7.8 Albumin 4.4 Lipase 22 Urine Color Urine Appearance Urine pH Ur Specific [place] Urine Protein Urine Glucose (UA) Urine Ketones Urine Blood Urine Nitrite Ur Leukocyte Esterase Urine RBC Urine WBC Ur Squamous Epith Cells Urine Bacteria COVID-19 (JANET) Negative COVID-19 Clin Com See Note 03/25/21 03/26/21 03/26/21 23:51 01:14 02:00 WBC 11.9 H RBC 4.44 Hgb 11.7 L Hct 34.6 L MCV 77.9 L MCH 26.4 L MCHC 33.8 RDW 15.4 Plt Count 345 MPV 10.3 Immature Gran % (Auto) Neut % (Auto) Lymph % (Auto) [place] % (Auto) Eos % (Auto) Baso % (Auto) Lymph # (Auto) [place] # (Auto) Eos # (Auto) Baso # (Auto) Abs Immat Gran (auto) Absolute Neuts (auto) Absolute Nucleated RBC 0.000 Nucleated RBC % (auto) 0.0 PT INR APTT Sodium Potassium Chloride Carbon Dioxide Anion Gap BUN Creatinine Estim Creat Clear Calc Estimated GFR Random Glucose Lactic Acid Lactic Acid Fup @ 2Hr 3.0 H* Lactic Acid Fup @ 4Hr Calcium Magnesium Total Bilirubin Direct Bilirubin AST ALT Alkaline Phosphatase Total Creatine Kinase Total Protein Albumin Lipase Urine Color BROWN Urine Appearance CLOUDY Urine pH 6.0 Ur Specific [place] 1.010 Urine Protein 2+ H Urine Glucose (UA) NEG Urine Ketones NEG Urine Blood 3+ H Urine Nitrite POS H Ur Leukocyte Esterase 3+ H Urine RBC 76-150 H Urine WBC 76-150 H Ur Squamous Epith Cells 2+ Urine Bacteria 2+ COVID-19 (JANET) COVID-19 Clin Com 03/26/21 03/26/21 03/26/21 02:00 06:00 06:00 WBC 10.1 RBC 4.28 Hgb 11.3 L Hct 33.0 L MCV 77.1 L MCH 26.4 L MCHC 34.2 RDW 15.2 Plt Count 324 MPV 10.0 Immature Gran % (Auto) 0.3 Neut % (Auto) 67.2 Lymph % (Auto) 24.0 [place] % (Auto) 7.8 Eos % (Auto) 0.5 Baso % (Auto) 0.2 Lymph # (Auto) 2.4 [place] # (Auto) 0.8 Eos # (Auto) 0.1 Baso # (Auto) 0.0 Abs Immat Gran (auto) 0.03 Absolute Neuts (auto) 6.8 Absolute Nucleated RBC 0.000 Nucleated RBC % (auto) 0.0 PT 15.3 H INR 1.3 H APTT 66.3 H* D Sodium Potassium Chloride Carbon Dioxide Anion Gap BUN Creatinine Estim Creat Clear Calc Estimated GFR Random Glucose Lactic Acid Lactic Acid Fup @ 2Hr Lactic Acid Fup @ 4Hr 1.5 Calcium Magnesium Total Bilirubin Direct Bilirubin AST ALT Alkaline Phosphatase Total Creatine Kinase Total Protein Albumin Lipase Urine Color Urine Appearance Urine pH Ur Specific [place] Urine Protein Urine Glucose (UA) Urine Ketones Urine Blood Urine Nitrite Ur Leukocyte Esterase Urine RBC Urine WBC Ur Squamous Epith Cells Urine Bacteria COVID-19 (JANET) COVID-19 [employer] 03/26/21 03/26/21 06:00 06:00 WBC RBC Hgb Hct MCV MCH MCHC RDW Plt Count MPV Immature Gran % (Auto) Neut % (Auto) Lymph % (Auto) [place] % (Auto) Eos % (Auto) Baso % (Auto) Lymph # (Auto) [place] # (Auto) Eos # (Auto) Baso # (Auto) Abs Immat Gran (auto) Absolute Neuts (auto) Absolute Nucleated RBC Nucleated RBC % (auto) PT INR APTT Sodium 139 Potassium 3.0 L Chloride 100 Carbon Dioxide 28 Anion Gap 14 BUN 16 Creatinine 0.76 Estim Creat Clear Calc 95.2 Estimated GFR > 60 Random Glucose 108 Lactic Acid 1.1 Lactic Acid Fup @ 2Hr Lactic Acid Fup @ 4Hr Calcium 8.4 D Magnesium 1.7 Total Bilirubin Direct Bilirubin AST ALT Alkaline Phosphatase Total Creatine Kinase Total Protein Albumin Lipase Urine Color Urine Appearance Urine pH Ur Specific [place] Urine Protein Urine Glucose (UA) Urine Ketones Urine Blood Urine Nitrite Ur Leukocyte Esterase Urine RBC Urine WBC Ur Squamous Epith Cells Urine Bacteria COVID-19 (JANET) COVID-19 [employer] Com Microbiology Microbiology Results: Microbiology 03/25/21 Unknown Urine Culture - Preliminary Urine clean catch - Urine schwartz top Gram negative luis f Quality Stroke Does the patient have a stroke diagnosis?: No VTE Prior VTE?: No VTE Risk Level:: Medical - moderate - high VTE Device Contraindication: N/A - Device Ordered VTE Drug Contraindication: Treatment Not Indicated Assessment and Plan (1) Pyelonephritis: Status: Acute (2) Hematuria: Status: Acute Assessment and Plan: hospital d#2 61-year-old female with a past medical history of hypertension, hypothyroidism, history of Raynaud disease, history of takotsubo cardiomyopathy, AFib on Pradaxa, fibromyalgia, hypothyroidism, chronic back pain, arthritis status post bilateral knee replacement, history of cholecystectomy, lupus, migraines, obesity presented to the hospital with a chief complaint of lower abdominal pain and bilateral flank pain for the past 1 day. Complains of gross bloody urine. Reports burning/ frequency. Admitted with pyelonephritis and in retrospect was septic with lactic acidosis, leukocytosis and brief mild tachycardia. # severe sepsis/pyelonephritis - ceftriaxone d#2, follow UCx/BCx, hematuria due to UTI in setting of dabigatran [held], Urology consult pending - lactate normalized with IV fluid hydration # hypoK - replete, monitor # cardiomyopathy - no signs of fluid overload, hold furosemide. continue lisinopril, metoprolol # AF - rate-controlled on metoprolol. continue dronaderone. currently sinus. ho lding dabigatran due to hematuria # HTN - continue lisinopril + metoprolol; hold HCTZ # HLD - continue statin # morbid obesity - consider outpt bariatrics referral # hypothyroidism - continue LT4 # chronic back pain - tramadol # fibromyalgia - continue milnacipran # VTE ppx - SCDs, hold dabigatran for hematuria
[2021-03-26] MEDS: HYDROmorphone HCl 0.5 MG/0.5 ML SYRINGE IVPUSH (16:40)
[2021-03-26] MEDS: Pravastatin Sodium 20 MG TABLET PO (20:31)
[2021-03-26] MEDS: Meclizine HCl 25 MG TABLET PO (20:35)
[2021-03-26] MEDS: cefTRIAXone sodium 1 GM in 0.9 % Sodium Chloride 50 ML IV (21:38)
[2021-03-27] VITALS (9 sets, daily range): BP systolic 102–122; BP diastolic 51–62; PULSE 65–85; RESP 16–21; TEMP 35.4–36.9; O2SAT 94–97; BMI 48.8
[2021-03-27] MEDS: HYDROmorphone HCl 0.5 MG/0.5 ML SYRINGE IVPUSH (01:46)
[2021-03-27] MEDS: Omeprazole 20 MG CAPSULE.DR PO (06:00)
[2021-03-27] MEDS: Levothyroxine Sodium 75 MCG TABLET PO (06:00)
[2021-03-27] MEDS: Acetaminophen 325 MG TABLET 650 MG PO ×2 (06:05→17:46)
[2021-03-27 06:27] LABS: Hematocrit 31.3 % (37-47); Hemoglobin 10.4 g/dl (12.0-16.0); Mean Corpuscular HGB Conc 33.2 g/dl (31.0-35.0); Mean Corpuscular Hemoglobin 26.2 pg (27.0-33.0); Mean Corpuscular Volume 78.8 fL (80-98); Mean Platelet Volume 10.5 fL (9.4-12.3); Platelet Count 320 X10*3/uL (160-400); Red Blood Count 3.97 X10*6/uL (4.20-5.50); Red Cell Distribution Width 15.8 % (11.0-16.0); White Blood Count 8.4 X10*3/uL (4.8-10.8)
[2021-03-27 07:10] LABS: Anion Gap 12 (12-20); Blood Urea Nitrogen 23 mg/dL (9-16); Calcium 8.2 mg/dL (8.4-10.2); Carbon Dioxide 27 mmol/L (22-29); Chloride 106 mmol/L (96-108); Creatinine Clr Calc Pharmacy 95.2; Estimated Glomerular Filt Rate > 60; Glucose Random 99 mg/dL (60-115); Magnesium 1.9 mg/dL (1.6-2.6); Sodium 141 mmol/L (135-145)
[2021-03-27] MEDS: 0.9 % Sodium Chloride 1,000 ML 100 ML IVCONT ×2 (08:54→21:32)
[2021-03-27] MEDS: oxyCODONE HCl Immed Release 5 MG TABLET PO ×3 (08:59→22:51)
[2021-03-27] MEDS: lisinopriL 10 MG TABLET PO (09:01)
[2021-03-27] MEDS: 0.9 % Sodium Chloride Flush 3 ML SYRINGE IVFLUSH ×3 (09:04→21:39)
[2021-03-27] MEDS: Metoprolol Tartrate 50 MG TABLET PO ×2 (09:05→21:31)
[2021-03-27] MEDS: Multivitamin TABLET 1 TAB PO (09:05)
[2021-03-27] MEDS: Ascorbic Acid 250 MG TABLET PO (09:06)
[2021-03-27] MEDS: Docusate Sodium 100 MG CAPSULE PO ×2 (09:06→21:32)
[2021-03-27] MEDS: Dronedarone HCl 400 MG TABLET PO ×2 (09:07→21:32)
[2021-03-27] MEDS: Loratadine 10 MG TABLET PO (09:08)
[2021-03-27] MEDS: Folic Acid 1 MG TABLET PO (09:08)
--- NOTE | 2021-03-27 11:29 | HO.PM.IMPN ---
Subjective Subjective Date of Service: 03/27/21 Interval History: severe flank pain hematuria resolved no fever Physical Exam Vital Signs: Vital Signs: Last Vital Signs Temp 95.7 F L 03/27/21 10:36 Pulse 65 03/27/21 10:36 Resp 20 03/27/21 10:36 BP 117/57 L 03/27/21 10:36 Pulse Ox 97 03/27/21 10:36 Body Mass Index 48.8 Gen: in no acute distress HEENT: sclera anicteric, moist mucus membranes Neck: supple Lungs: clear to auscultation bilaterally Heart: regular rate and rhythm, no murmurs Abd: morbidly obese, soft, non-tender, non-distended Ext: no edema Skin: warm/well-perfused Neuro: alert and oriented x3, no focal findings Psych: appropriate affect Objective Data Current Medications Generic Name Dose Route Start Last Admin Trade Name Freq PRN Reason Stop Dose Admin Acetaminophen 650 mg 03/25/21 21:08 03/27/21 06:05 Acetaminophen 325 Mg Tablet PO 650 mg Q6H PRN Administration Pain, Mild (Pain Scale 1-3) Alprazolam 0.5 mg 03/25/21 23:14 03/26/21 20:35 Alprazolam 0.5 Mg Tablet PO 0.5 mg TID PRN Administration Anxiety Ascorbic Acid 250 mg 03/26/21 09:00 03/27/21 09:06 Ascorbic Acid 250 Mg Tablet PO 250 mg DAILY FRANDY Administration Calcium Carbonate 600 mg 03/26/21 08:00 03/27/21 09:12 Calcium Carbonate 500 Mg Tablet PO 600 mg DAILY@0800 FRANDY Administration Docusate Sodium 100 mg 03/26/21 09:00 03/27/21 09:06 Docusate Sodium 100 Mg Capsule PO 100 mg BID FRANDY Administration Dronedarone 400 mg 03/26/21 09:00 03/27/21 09:07 Dronedarone Hcl 400 Mg Tablet PO 400 mg BID FRANDY Administration Folic Acid 1 mg 03/26/21 09:00 03/27/21 09:08 Folic Acid 1 Mg Tablet PO 1 mg DAILY FRANDY Administration Hydromorphone HCl 0.5 mg 03/26/21 06:41 03/27/21 01:46 Hydromorphone Hcl 0.5 Mg/0.5 Ml Syringe IVPUSH 0.5 mg Q4H PRN Administration Breakthrough Pain Ceftriaxone Sodium 1 gm/ 50 mls @ 100 mls/hr 03/25/21 22:00 03/26/21 22:20 Sodium Chloride IV Infused Q24H FRANDY Infusion Sodium Chloride 1,000 mls @ 100 mls/hr 03/25/21 21:30 03/27/21 08:54 Ns IVCONT 100 mls/hr .Q10H FRANDY Administration Levothyroxine Sodium 75 mcg 03/26/21 06:30 03/27/21 06:00 Levothyroxine Sodium 75 Mcg Tablet PO 75 mcg DAILY@0630 FRANDY Administration Lisinopril 10 mg 03/26/21 09:00 03/27/21 09:01 Lisinopril 10 Mg Tablet PO 10 mg DAILY [facility] Administration Protocol Loratadine 10 mg 03/26/21 09:00 03/27/21 09:08 Loratadine 10 Mg Tablet PO 10 mg DAILY FRANDY Administration Meclizine HCl 25 mg 03/25/21 23:14 03/26/21 20:35 Meclizine Hcl 25 Mg Tablet PO 25 mg QID PRN Administration dizziness Metoprolol Tartrate 50 mg 03/26/21 09:00 03/27/21 09:05 Metoprolol Tartrate 50 Mg Tablet PO 50 mg BID [facility] Administration Protocol Multivitamins/Vitamin C 1 tab 03/26/21 09:00 03/27/21 09:05 Multivitamin Tablet PO 1 tab DAILY [facility] Administration Non-Formulary Medication 50 mg 03/26/21 09:00 Milnacipran PO BID [facility] Omeprazole 20 mg 03/26/21 06:30 03/27/21 06:00 Omeprazole 20 Mg Capsule.Dr PO 20 mg DAILY@0630 [facility] Administration Oxycodone HCl 5 mg 03/27/21 08:00 03/27/21 08:59 Oxycodone Hcl Immed Release 5 Mg Tablet PO 5 mg Q4H PRN Administration severe pain Pharmacy Consult 1 each 03/25/21 21:16 Consult Rx Perform Med Rec MISCELLANE ONCE PRN Consult order Pravastatin Sodium 20 mg 03/26/21 21:00 03/26/21 20:31 Pravastatin Sodium 20 Mg Tablet PO 20 mg BEDTIME [facility] Administration Senna 17.2 mg 03/25/21 22:00 Sennosides 8.6 Mg Tablet PO BEDTIME PRN Constipation Sodium Chloride 3 ml 03/26/21 00:00 03/27/21 09:04 0.9 % Sodium Chloride Flush 3 Ml Syringe IVFLUSH 3 ml QSHIFT FRANDY Administration Labs CBC & Chem 7: 03/27/21 05:51 03/27/21 05:51 Labs: Laboratory Results - last 24 hr 03/27/21 03/27/21 05:51 05:51 WBC 8.4 RBC 3.97 L Hgb 10.4 L Hct 31.3 L MCV 78.8 L MCH 26.2 L MCHC 33.2 RDW 15.8 Plt Count 320 MPV 10.5 Absolute Nucleated RBC 0.000 Nucleated RBC % (auto) 0.0 Sodium 141 Potassium 4.0 D Chloride 106 Carbon Dioxide 27 Anion Gap 12 BUN 23 H Creatinine 0.76 Estim Creat Clear Calc 95.2 Estimated GFR > 60 Random Glucose 99 Calcium 8.2 L Magnesium 1.9 Microbiology Microbiology Results: Microbiology 03/25/21 Unknown Urine Culture - Final Urine clean catch - Urine schwartz top Escherichia coli 03/25/21 21:31 Blood Culture - Preliminary Blood - Venous No growth after 24 hours. 03/25/21 21:26 Blood Culture - Preliminary Blood - Venous No growth after 24 hours. Quality Stroke Does the patient have a stroke diagnosis?: No VTE Prior VTE?: No VTE Risk Level:: Medical - moderate - high VTE Device Contraindication: N/A - Device Ordered VTE Drug Contraindication: Treatment Not Indicated Assessment and Plan (1) Pyelonephritis: Status: Acute (2) Hematuria: Status: Acute Assessment and Plan: hospital d#3 61-year-old female with a past medical history of hypertension, hypothyroidism, history of Raynaud disease, history of takotsubo cardiomyopathy, AFib on Pradaxa, fibromyalgia, hypothyroidism, chronic back pain, arthritis status post bilateral knee replacement, history of cholecystectomy, lupus, migraines, obesity presented to the hospital with a chief complaint of lower abdominal pain and bilateral flank pain for the past 1 day. Complains of gross bloody urine. Reports burning/ frequency. Admitted with pyelonephritis and in retrospect was septic with lactic acidosis, leukocytosis and brief mild tachycardia. # severe sepsis/pyelonephritis - ceftriaxone d#3, UCx growing E coli resistant to ampicillin/gentamicin/SMX-TMP, BCx NGTD,, hematuria due to UTI in setting of dabigatran [held] but Urology consult pending - lactate normalized with IV fluid hydration # hypoK - replete, monitor # cardiomyopathy - no signs of fluid overload, held furosemide for severe sepsis. continue lisinopril, metoprolol # AF - rate-controlled on metoprolol. continue dronaderone. currently sinus rhythm. holding dabigatran due to hematuria; resume after treatment of UTI # HTN - continue lisinopril + metoprolol; hold HCTZ # HLD - continue statin # morbid obesity - consider outpt bariatrics referral # hypothyroidism - continue LT4 # chronic back pain - tramadol # fibromyalgia - continue milnacipran # VTE ppx - SCDs, hold dabigatran for hematuria
[2021-03-27] MEDS: Phenazopyridine HCL 200 MG TABLET PO ×2 (13:13→17:40)
[2021-03-27] MEDS: Pravastatin Sodium 20 MG TABLET PO (21:31)
[2021-03-27] MEDS: cefTRIAXone sodium 1 GM in 0.9 % Sodium Chloride 50 ML IV (21:33)
[2021-03-28] VITALS (9 sets, daily range): BP systolic 103–146; BP diastolic 54–70; PULSE 61–78; RESP 16–20; TEMP 36–36.9; O2SAT 84–97; BMI 50.4
[2021-03-28] MEDS: HYDROmorphone HCl 0.5 MG/0.5 ML SYRINGE IVPUSH ×2 (01:20→13:23)
[2021-03-28] MEDS: oxyCODONE HCl Immed Release 5 MG TABLET PO ×2 (05:36→21:19)
[2021-03-28] MEDS: ALPRAZolam 0.5 MG TABLET PO ×2 (05:36→22:41)
[2021-03-28] MEDS: Omeprazole 20 MG CAPSULE.DR PO (05:37)
[2021-03-28] MEDS: 0.9 % Sodium Chloride 1,000 ML 100 ML IVCONT (07:55)
[2021-03-28] MEDS: 0.9 % Sodium Chloride Flush 3 ML SYRINGE IVFLUSH ×3 (07:56→21:23)
[2021-03-28] MEDS: Metoprolol Tartrate 50 MG TABLET PO ×2 (09:13→21:20)
[2021-03-28] MEDS: Ascorbic Acid 250 MG TABLET PO (09:13)
[2021-03-28] MEDS: Multivitamin TABLET 1 TAB PO (09:13)
[2021-03-28] MEDS: Loratadine 10 MG TABLET PO (09:14)
[2021-03-28] MEDS: Docusate Sodium 100 MG CAPSULE PO ×2 (09:14→21:18)
[2021-03-28] MEDS: Phenazopyridine HCL 200 MG TABLET PO ×3 (09:14→17:06)
[2021-03-28] MEDS: Dronedarone HCl 400 MG TABLET PO ×2 (09:15→21:18)
[2021-03-28] MEDS: lisinopriL 10 MG TABLET PO (09:15)
[2021-03-28] MEDS: Folic Acid 1 MG TABLET PO (09:16)
[2021-03-28] MEDS: Acetaminophen 325 MG TABLET 650 MG PO (09:16)
[2021-03-28] MEDS: Albuterol/Iprat 2.5/0.5MG 3 ML AMPUL.NEB INHALE ×2 (09:47→18:35)
--- NOTE | 2021-03-28 14:47 | P.PNIM_ITS ---
Subjective Subjective Date of Service: 03/29/21 Interval History: complaining of left shoulder and back pain, complaining of worsening pain with breathing and with urination, no hematuria, no right flank pain, no fevers, no other acute issues overnight. [employer] no headache , no dizziness CVS no chest pain, no palpitation GI no nausea, no vomiting, no abdominal pain Physical Exam Vital Signs: Vital Signs: Last Vital Signs Temp 97.2 F 03/28/21 11:33 Pulse 72 03/28/21 11:33 Resp 16 03/28/21 11:33 BP 103/54 L 03/28/21 11:33 Pulse Ox 94 03/28/21 11:33 Body Mass Index 50.4 Gen: in no acute distress Neck: supple, no spasm, good range of motion Lungs: clear to auscultation bilaterally, occasional expiratory wheeze Heart: regular rate and rhythm, no murmurs Abd: morbidly obese, soft, non-tender, non-distended Ext: no edema Skin: no rash Neuro: alert and oriented x3, no focal findings Psych: appropriate affect Objective Data Current Medications Generic Name Dose Route Start Last Admin Trade Name Freq PRN Reason Stop Dose Admin Acetaminophen 650 mg 03/25/21 21:08 03/28/21 09:16 Acetaminophen 325 Mg Tablet PO 650 mg Q6H PRN Administration Pain, Mild (Pain Scale 1-3) Albuterol/Ipratropium 3 ml 03/27/21 18:00 03/28/21 09:47 Albuterol/Iprat 2.5/0.5mg 3 Ml Ampul.Neb INHALE 3 ml RQ4H PRN Administration sob Alprazolam 0.5 mg 03/25/21 23:14 03/28/21 05:36 Alprazolam 0.5 Mg Tablet PO 0.5 mg TID PRN Administration Anxiety Ascorbic Acid 250 mg 03/26/21 09:00 03/28/21 09:13 Ascorbic Acid 250 Mg Tablet PO 250 mg DAILY FRANDY Administration Calcium Carbonate 600 mg 03/26/21 08:00 03/28/21 09:15 Calcium Carbonate 500 Mg Tablet PO 600 mg DAILY@0800 FRANDY Administration Cefuroxime Axetil 500 mg 03/28/21 11:00 03/28/21 11:17 Cefuroxime Axetil 500 Mg Tablet PO 500 mg Q12H FRANDY Administration Docusate Sodium 100 mg 03/26/21 09:00 03/28/21 09:14 Docusate Sodium 100 Mg Capsule PO 100 mg BID FRANDY Administration Dronedarone 400 mg 03/26/21 09:00 03/28/21 09:15 Dronedarone Hcl 400 Mg Tablet PO 400 mg BID FRANDY Administration Folic Acid 1 mg 03/26/21 09:00 03/28/21 09:16 Folic Acid 1 Mg Tablet PO 1 mg DAILY [facility]ANDY Administration Hydromorphone HCl 0.5 mg 03/26/21 06:41 03/28/21 13:23 Hydromorphone Hcl 0.5 Mg/0.5 Ml Syringe IVPUSH 0.5 mg Q4H PRN Administration Breakthrough Pain Levothyroxine Sodium 75 mcg 03/26/21 06:30 03/28/21 05:40 Levothyroxine Sodium 75 Mcg Tablet PO Not Given DAILY@629 [facility] Lisinopril 10 mg 03/26/21 09:00 03/28/21 09:15 Lisinopril 10 Mg Tablet PO 10 mg DAILY [facility] Administration Protocol Loratadine 10 mg 03/26/21 09:00 03/28/21 09:14 Loratadine 10 Mg Tablet PO 10 mg DAILY [facility] Administration Meclizine HCl 25 mg 03/25/21 23:14 03/26/21 20:35 Meclizine Hcl 25 Mg Tablet PO 25 mg QID PRN Administration dizziness Metoprolol Tartrate 50 mg 03/26/21 09:00 03/28/21 09:13 Metoprolol Tartrate 50 Mg Tablet PO 50 mg BID [facility] Administration Protocol Multivitamins/Vitamin C 1 tab 03/26/21 09:00 03/28/21 09:13 Multivitamin Tablet PO 1 tab DAILY [facility] Administration Non-Formulary Medication 50 mg 03/26/21 09:00 Milnacipran PO BID [facility] Omeprazole 20 mg 03/26/21 06:30 03/28/21 05:37 Omeprazole 20 Mg Capsule.Dr PO 20 mg DAILY@0630 [facility] Administration Oxycodone HCl 5 mg 03/27/21 08:00 03/28/21 05:36 Oxycodone Hcl Immed Release 5 Mg Tablet PO 5 mg Q4H PRN Administration severe pain Pharmacy Consult 1 each 03/25/21 21:16 Consult Rx Perform Med Rec MISCELLANE ONCE PRN Consult order Phenazopyridine HCl 200 mg 03/27/21 12:00 03/28/21 11:17 Phenazopyridine Hcl 200 Mg Tablet PO 03/29/21 08:01 200 mg TIDWM FRANDY Administration Pravastatin Sodium 20 mg 03/26/21 21:00 03/27/21 21:31 Pravastatin Sodium 20 Mg Tablet PO 20 mg BEDTIME FRANDY Administration Senna 17.2 mg 03/25/21 22:00 Sennosides 8.6 Mg Tablet PO BEDTIME PRN Constipation Sodium Chloride 3 ml 03/26/21 00:00 03/28/21 13:24 0.9 % Sodium Chloride Flush 3 Ml Syringe IVFLUSH 3 ml QSHIFT FRANDY Administration Labs CBC & Chem 7: 03/27/21 05:51 03/27/21 05:51 Microbiology Microbiology Results: Microbiology 03/25/21 21:31 Blood Culture - Preliminary Blood - Venous No growth after 48 hours. 03/25/21 21:26 Blood Culture - Preliminary Blood - Venous No growth after 48 hours. Quality Stroke Does the patient have a stroke diagnosis?: No VTE Prior VTE?: No VTE Risk Level:: Medical - moderate - high VTE Device Contraindication: N/A - Device Ordered VTE Drug Contraindication: Treatment Not Indicated Assessment and Plan (1) Pyelonephritis: Status: Acute (2) Chronic back pain: Status: Acute (3) Hematuria: Status: Acute (4) HTN (hypertension): Status: Acute (5) Paroxysmal atrial fibrillation: Status: Acute (6) UTI (urinary tract infection): Status: Acute (7) Morbid obesity: Status: Acute Assessment and Plan: 61-year-old female with a past medical history of hypertension, hypothyroidism, history of Raynaud disease, history of takotsubo cardiomyopathy, AFib on Pradaxa, fibromyalgia, hypothyroidism, chronic back pain, arthritis status post bilateral knee replacement, history of cholecystectomy, lupus, migraines, obesity presented to the hospital with a chief complaint of lower abdominal pain and bilateral flank pain for the past 1 day. Complains of gross bloody urine. Reports burning/ frequency. Admitted with pyelonephritis and in retrospect was septic with lactic acidosis, leukocytosis and brief mild tachycardia. # severe sepsis/pyelonephritis no fevers, no flank pain - ceftriaxone d#4, UCx growing E coli resistant to ampicillin/gentamicin/SMX- TMP, BCx 2 negative, hematuria due to UTI in setting of dabigatran , renal ultrasound showed no hydro, no calculi noted however patient passed a stone that has been sent to lab - lactate normalized with IV fluid hydration, will transition to by mouth Ceftin for total 7 day possible discharge at a.m. recommend out of bed to chair and ambulation as tolerated # hypoK, potassium normalized status post replacement likely due to use of hydrochlorothiazide and Lasix, will discontinue hydrochlorothiazide upon discharge due to soft blood pressure. # cardiomyopathy EF 55-60% 09/21 - no signs of fluid overload, held furosemide for severe sepsis. continue lisinopril, metoprolol , will resume low-dose Lasix upon discharge. # AF - rate-controlled on metoprolol. continue dronaderone. currently sinus rhythm. holding dabigatran due to hematuria; will resume after treatment of UTI # HTN - continue lisinopril + metoprolol; hold HCTZ since BP noted to be soft # HLD - continue statin # morbid obesity - consider outpt bariatrics referral, recommended low-calorie diet # hypothyroidism - continue LT4 # chronic back pain, patient complaining of upper and mid back pain, explained it seems musculoskeletal with underlying history of fibromyalgia, cont. tramadol and milnacipran, will apply hot pack strongly recommend to lose weight /exercise # VTE ppx - SCDs, hold dabigatran for hematuria
[2021-03-28] MEDS: Pravastatin Sodium 20 MG TABLET PO (21:18)
[2021-03-29 02:15] VITALS: BP 113/61; PULSE 74; RESP 18; TEMP 36.3; O2SAT 97
[2021-03-29] MEDS: Benzonatate 100 MG CAPSULE PO ×2 (03:28→08:03)
[2021-03-29 04:39] VITALS: BMI 50.5
[2021-03-29] MEDS: Omeprazole 20 MG CAPSULE.DR PO (05:40)
[2021-03-29] MEDS: Levothyroxine Sodium 75 MCG TABLET PO (05:40)
[2021-03-29 07:41] VITALS: BP 117/72; PULSE 83; RESP 18; TEMP 36.2; O2SAT 95
[2021-03-29] MEDS: Phenazopyridine HCL 200 MG TABLET PO (08:00)
[2021-03-29] MEDS: Docusate Sodium 100 MG CAPSULE PO (08:00)
[2021-03-29] MEDS: Folic Acid 1 MG TABLET PO (08:01)
[2021-03-29] MEDS: Multivitamin TABLET 1 TAB PO (08:01)
[2021-03-29] MEDS: ALPRAZolam 0.5 MG TABLET PO (08:01)
[2021-03-29] MEDS: Dronedarone HCl 400 MG TABLET PO (08:01)
[2021-03-29] MEDS: Loratadine 10 MG TABLET PO (08:01)
[2021-03-29 08:02] VITALS: BP 117/72; PULSE 83
[2021-03-29] MEDS: Metoprolol Tartrate 50 MG TABLET PO (08:02)
[2021-03-29] MEDS: lisinopriL 10 MG TABLET PO (08:02)
[2021-03-29] MEDS: Ascorbic Acid 250 MG TABLET PO (08:02)
[2021-03-29] MEDS: Fluticasone Propionate Nasal 16 GM SPRAY 1 SPRAY NOSTRIL-B (08:04)
[2021-03-29] MEDS: Acetaminophen 325 MG TABLET 650 MG PO (08:04)
[2021-03-29] MEDS: 0.9 % Sodium Chloride Flush 3 ML SYRINGE IVFLUSH (09:10)
[2021-03-29] MEDS: oxyCODONE HCl Immed Release 5 MG TABLET PO (09:11)
[2021-03-29 11:07] VITALS: BP 128/64; PULSE 79; RESP 18; TEMP 36.1; O2SAT 94
--- NOTE | 2021-03-29 12:22 | MHC.CM.PN ---
Addendum entered by Deanna Robles 03/29/21 13:59: CM MET WITH PT TO DISCUSS DC PLANS. CURRENT PLAN IS HOME WITH RESUMPTION OF TELEGRAPH OPERATOR HOURS. PT ALSO MADE AWARE [facility] SHOULD BE CONDUCTING A POST DC ASSESSMENT WITHIN 48 HOURS OF DC TO DETERMINE IF SHE REQUIRES ANY FURTHER SUPPORT SUCH VNA OR INCREASED TELEGRAPH OPERATOR HOURS. PT AGREEABLE TO DC PLAN AND REPORTS HER SON WILL BE PICKING HER UP. CM ATTEMPTED TO REACH [facility] AGAIN. MAYELA NURSE RADIOGRAPHER CARDIAC CATHETERIZATION NOTIFIED OF DC Addendum entered by Deanna Robles 03/29/21 12:25: CM ATTEMPTED TO CONTACT [facility] MAYELA RN RADIOGRAPHER CARDIAC CATHETERIZATION ([phone]) X 2. CALLS WERE SENT TO A RECORDING THAT INDICATED THE EXTENSION COULD NOT BE REACHED. CM WILL ATTEMPT CALL AGAIN LATER IN THE DAY. Original Note: PT CLEARED TO DC HOME TODAY WITH NO NEW SERVICES. [facility] TO BE NOTIFIED VIA T/C. FAMILY TO TRANSPORT
--- NOTE | 2021-03-29 12:23 | P.DS_ITS ---
DS: Providers Provider Date of Service: 03/29/21 Date of admission: 03/25/21 21:08 Primary care physician: Mercedes Pandya MD Consults: 03/25/21 21:08 Consult to Urology Routine Consulting Provider: Lai Schreiber Reason for consultation: hematuria/UTI DS: Diagnosis Discharge Diagnosis (1) Pyelonephritis: Status: Acute (2) Chronic back pain: Status: Acute (3) Hematuria: Status: Acute (4) HTN (hypertension): Status: Acute (5) Paroxysmal atrial fibrillation: Status: Acute (6) UTI (urinary tract infection): Status: Acute (7) Morbid obesity: Status: Acute DS: Medications Discharge Medications Home Medications: Home Medications Medication Instructions Recorded Confirmed alprazolam 0.5 mg tablet 0.5 mg PO TID PRN 08/11/20 03/25/21 ascorbic acid (vitamin C) 250 mg 250 mg PO DAILY 08/11/20 03/25/21 tablet calcium carbonate 600 mg calcium 600 mg PO DAILY 08/11/20 03/25/21 (1,500 mg) tablet docusate sodium 100 mg capsule 100 mg PO BID 08/11/20 03/25/21 ferrous sulfate 325 mg (65 mg 325 mg PO DAILY 08/11/20 03/25/21 iron) tablet fluticasone propionate 110 2 puff INHALATION BID 08/11/20 03/25/21 mcg/actuation HFA aerosol inhaler folic acid 1 mg tablet 1 mg PO DAILY 08/11/20 03/25/21 furosemide 20 mg tablet 20 mg PO DAILY 08/11/20 03/25/21 levothyroxine 75 mcg tablet 75 mcg PO DAILY 08/11/20 03/25/21 loratadine 10 mg tablet 10 mg PO DAILY 08/11/20 03/25/21 milnacipran 50 mg tablet 50 mg PO BID 08/11/20 03/25/21 multivitamin 1 tab PO DAILY 08/11/20 03/25/21 omeprazole 20 mg capsule,delayed 20 mg PO DAILY 08/11/20 03/25/21 release pravastatin 20 mg tablet 20 mg PO BEDTIME 08/11/20 03/25/21 fluticasone propionate 1 spray INTRANASAL BID PRN 03/25/21 03/25/21 meclizine 1 tab PO QID PRN 03/25/21 03/25/21 Previous Rx's Medication Instructions Recorded metoprolol tartrate 50 mg tablet 50 mg PO BID 90 Days #180 tab 09/02/20 dabigatran etexilate 150 mg capsule 150 mg PO BID 90 Days #180 cap 02/02/21 lisinopril 10 mg tablet 10 mg PO DAILY #28 tab 02/03/21 dronedarone 400 mg tablet 400 mg PO BID #60 tab 02/18/21 cefuroxime axetil 500 mg PO Q12H #6 tab 03/29/21 DS: Summary Hospital Course Hospital Course: history of presenting illness Chief Complaint: Hematuria 61-year-old female with a past medical history of hypertension, hypothyroidism, history of Raynaud disease, history of takotsubo cardiomyopathy, AFib on Pradaxa, fibromyalgia, hypothyroidism, chronic back pain, arthritis status post bilateral knee replacement, history of cholecystectomy, lupus, migraines, obesity presented to the hospital with a chief complaint of lower abdominal pain and bilateral flank pain for the past 1 day. Complains of gross bloody urine. Reports burning/ frequency. Patient mentions that she has been compliant with her home medications. Denies lightheadedness or dizziness. Denies headaches, blurry vision, focal weakness. Patient denies any nausea vomiting diarrhea. Denies any chest pain or palpitations. Review of all other systems is negative except mentioned above ER course: Per ER team patient noted to have stable hemoglobin, gross hematuria, tender in the lower abdomen, ultrasound noted to have bilateral CVA tenderness, UA abnormal with hematuria and findings consistent sting with infection; given ceftriaxone for presumed pyelonephritis. Also noted to have elevated PTT- patient on Pradaxa. hospital course 61-year-old female with a past medical history of hypertension, hypothyroidism, history of Raynaud disease, history of takotsubo cardiomyopathy, AFib on Pradaxa, fibromyalgia, hypothyroidism, chronic back pain, arthritis status post bilateral knee replacement, history of cholecystectomy, lupus, migraines, obesity presented to the hospital with a chief complaint of lower abdominal pain and bilateral flank pain for the past 1 day, with hematuria, burning, and frequency, patient admitted with a diagnosis of acute pyelonephritis and severe sepsis with lactic acidosis, leukocytosis and brief mild tachycardia, patient treated with IV ceftriaxone urine culture grew E coli, renal ultrasound showed no hydronephrosis no calculi, however patient passed a kidney stone that has been sent to lab for pathology, patient responded well to above treatment, she is now afebrile flank pain and hematuria resolved therefore being discharged home on by mouth Ceftin for total 7 day treatment. due to hematuria Pradaxa has been held and she has been recommended to resume med after she finishes the course of antibiotics. patient noted to have hypokalemia likely due to diuretics Lasix and hydrochl orothiazide, since patient blood pressure is soft hydrochlorothiazide has been discontinued, patient has history takotsubo cardiomyopathy her recent echocardiogram showed EF 55-60% on 09/21 in regard to atrial fibrillation she has been continued on metoprolol she has been noted to be in normal sinus rhythm, she has been continued on her home blood pressure medications and statin she has been strongly recommended to follow low-calorie diet due to morbid obesity contributing to her chronic pain Time Spent with Patient Time attestation: Total time spent providing and/or coordinating discharge services: Discharge coordination time: Greater than 30 minutes Quality: Stroke Does the patient have a stroke diagnosis?: No Physical Exam Vital Signs: Vital Signs: Last Vital Signs Temp 97.0 F 03/29/21 11:07 Pulse 79 03/29/21 11:07 Resp 18 03/29/21 11:07 BP 128/64 03/29/21 11:07 Pulse Ox 94 03/29/21 11:07 Body Mass Index 50.5 Gen: resting comfortably, no acute distress Neck: supple, no spasm, good range of motion Lungs: clear to auscultation bilaterally, no expiratory wheeze Heart: regular rate and rhythm, no murmurs Abd: morbidly obese, soft, non-tender, non-distended Ext: no edema Skin: no rash Neuro: alert and oriented x3, no focal findings Psych: appropriate affect DS: Data Data Completed and Pending Labs on day of discharge: Preliminary micro results at discharge 03/25/21 21:31 Blood Culture - Preliminary Blood - Venous No growth after 48 hours. 03/25/21 21:26 Blood Culture - Preliminary Blood - Venous No growth after 48 hours. Discharge Plan Discharge Patient Disposition: Home, Self-Care Discharge Diagnosis: severe sepsis acute pyelonephritis kidney stone hypokalemia morbid obesity Referrals: Mercedes Pandya MD [Primary Care Provider] - 1 Week Discharge Medications: New cefuroxime axetil 500 mg Tablet 500 mg PO Q12H Qty: 6 RF: 0 Continued metoprolol tartrate 50 mg tablet 50 mg PO BID 90 Days Qty: 180 RF: 3 lisinopril 10 mg tablet 10 mg PO DAILY Qty: 28 RF: 5 Multaq 400 mg tablet 400 mg PO BID Qty: 60 RF: 5 meclizine 25 mg tablet 1 tab PO QID PRN (Reason: dizziness) RF: 0 fluticasone propionate 50 mcg/actuation spray,suspension 1 spray intranasal BID PRN (Reason: Allergy Symptoms) RF: 0 folic acid 1 mg tablet 1 mg PO DAILY RF: 0 milnacipran 50 mg tablet 50 mg PO BID RF: 0 loratadine 10 mg tablet 10 mg PO DAILY RF: 0 furosemide 20 mg tablet 20 mg PO DAILY RF: 0 pravastatin 20 mg tablet 20 mg PO BEDTIME RF: 0 omeprazole 20 mg capsule,delayed release(DR/EC) 20 mg PO DAILY RF: 0 docusate sodium 100 mg capsule 100 mg PO BID RF: 0 ferrous sulfate 325 mg (65 mg iron) tablet 325 mg PO DAILY RF: 0 ascorbic acid (vitamin C) 250 mg tablet 250 mg PO DAILY RF: 0 calcium carbonate 600 mg calcium (1,500 mg) tablet 600 mg PO DAILY RF: 0 levothyroxine 75 mcg tablet 75 mcg PO DAILY RF: 0 multivitamin Tablet 1 tab PO DAILY RF: 0 alprazolam 0.5 mg tablet 0.5 mg PO TID PRN (Reason: Anxiety) RF: 0 fluticasone propionate 110 mcg/actuation HFA aerosol inhaler 2 puff inhalation BID RF: 0 Held dabigatran etexilate [Pradaxa] 150 mg capsule 150 mg PO BID 90 Days Qty: 180 RF: 1 Hold Instructions: Resume on 04/02/21. Discontinued hydrochlorothiazide 25 mg tablet 25 mg PO QAM 90 Days Qty: 90 RF: 1 Discharge Orders: Discharge Order (Routine); Ordered 03/29/21 Ordered By: Augusto Wilkerson Diet: low fat, low cholesterol Activity on Discharge: As tolerated Stand Alone Forms: Patient Portal Discharge page Care Plan Goals: sepsis due to acute pyelonephritis take Ceftin for 3 more days, you passed a kidney stone, follow-up with your primary care physician to obtain pathology report. due to blood in urine hold Pradaxa for 3 more days and resume from [facility] Concerns: continue all home medications as before except stop hydrochlorothiazide due to soft blood pressure and low potassium, resume Pradaxa from April 02 Plan of Treatment: follow up with primary care physician in 1 week Assessment: as above
--- NOTE | 2021-03-29 12:31 | P.CNUR_ITS ---
History of Present Illness Consult details Consult date: 03/28/21 Narrative: Marie Is a 61-year-old female. Admitted to the hospital with lower abdominal pain, bilateral flank discomfort, and gross hematuria on evaluation she was found to have pyelonephritis urinary culture positive for E coli resistant to Bactrim, gentamicin, ampicillin imaging with ultrasound showing no renal anatomic abnormalities improving with IV medication may transition to oral medication and discharge Review of Systems Constitutional: Constitutional: Denies chills and Denies fever(s) Cardiovascular: Cardiovascular: Reports no additional cardiovascular co mplaints and Denies syncope Respiratory: Respiratory: Denies cough Gastrointestinal: Gastrointestinal: Denies abdominal pain and Denies heartburn Genitourinary: Genitourinary: Reports as per HPI and Denies change in libido Neurologic: Denies syncope Psychiatric: Psychiatric: Denies change in libido Endocrine: Endocrine: Denies change in libido [facility] Past Medical History Medical History Arthritis Back pain, chronic Bronchitis Carpal tunnel syndrome Edema Fibromyalgia Glaucoma HTN (hypertension) Hypothyroid Lupus Migraine Morbid obesity Paroxysmal atrial fibrillation Raynauds disease SVT (supraventricular tachycardia) Takotsubo cardiomyopathy Tendinitis Thyroid nodule Family History Family History Father No problems noted. Mother CVD (cardiovascular disease) Brother Stomach cancer Surgical History Surgical History History of total bilateral knee replacement (TKR) Hx of cholecystectomy Hx of tonsillectomy Social History Social History Household Members: Family Housing: Apartment Do you presently have visiting nurse or other home services: Yes (son helps with bathing) Patient Tobacco Use Status: Never used Tobacco Use of substances other than those prescribed or required for medical reasons: No Currently Displaying Signs/Symptoms of Drug Intoxication Withdrawal: No Do you feel safe in your current relationship?: Yes Is there a partner from a previous relationship who is making you feel unsafe now?: No Are you made to feel afraid or neglected: No Advance Directives: Yes Advance Directives Information Provided: Yes Advance Directives on File: No Advance Directives Date on File: 03/25/21 Do you have thoughts of harming others: None Do you have a plan to hurt others: No Plan How much weight loss: 14-23 pounds Eating poorly because of decreased appetite: No Nutrition Risks: No Nutritional Risk Patient : No service: No Current occupational status: disabled Current occupation: right handed Meds Allergies Allergy/AdvReac Type Severity Reaction Status Date / Time duloxetine [From CYMBALTA] Allergy Severe Anaphylaxis Verified 03/25/21 13:29 Penicillins Allergy Severe ANAPHYLAXIS Verified 03/25/21 13:29 STEROIDS Allergy Severe UNKNOWN Verified 03/25/21 13:29 Crustaceans Allergy Severe RESP Uncoded 03/25/21 13:29 PROBLEMS SHELLFISH Allergy Severe NUMBNESS Uncoded 03/25/21 13:29 SWELLING MOUTH Cortisone Allergy Unknown unknown Uncoded 09/05/20 12:24 Active Medications: Current Medications Generic Name Dose Route Start Last Admin Trade Name Freq PRN Reason Stop Dose Admin Acetaminophen 650 mg 03/25/21 21:08 03/29/21 08:04 Acetaminophen 325 Mg Tablet PO 650 mg Q6H PRN Administration Pain, Mild (Pain Scale 1-3) Albuterol/Ipratropium 3 ml 03/27/21 18:00 03/28/21 18:35 Albuterol/Iprat 2.5/0.5mg 3 Ml Ampul.Neb INHALE 3 ml RQ4H PRN Administration sob Alprazolam 0.5 mg 03/25/21 23:14 03/29/21 08:01 Alprazolam 0.5 Mg Tablet PO 0.5 mg TID PRN Administration Anxiety Ascorbic Acid 250 mg 03/26/21 09:00 03/29/21 08:02 Ascorbic Acid 250 Mg Tablet PO 250 mg DAILY FRANDY Administration Benzonatate 100 mg 03/29/21 03:16 03/29/21 08:03 Benzonatate 100 Mg Capsule PO 100 mg TID PRN Administration Cough Calcium Carbonate 600 mg 03/26/21 08:00 03/29/21 08:02 Calcium Carbonate 500 Mg Tablet PO 600 mg DAILY@0800 FRANDY Administration Cefuroxime Axetil 500 mg 03/28/21 11:00 03/29/21 11:11 Cefuroxime Axetil 500 Mg Tablet PO 500 mg Q12H FRANDY Administration Docusate Sodium 100 mg 03/26/21 09:00 03/29/21 08:00 Docusate Sodium 100 Mg Capsule PO 100 mg BID FRANDY Administration Dronedarone 400 mg 03/26/21 09:00 03/29/21 08:01 Dronedarone Hcl 400 Mg Tablet PO 400 mg BID FRANDY Administration Fluticasone Propionate 1 spray 03/29/21 03:20 03/29/21 08:04 Fluticasone Propionate Nasal 16 Gm [place] NOSTRIL-B 1 spray BID FRANDY Administration Folic Acid 1 mg 03/26/21 09:00 03/29/21 08:01 Folic Acid 1 Mg Tablet PO 1 mg DAILY FRANDY Administration Hydromorphone HCl 0.5 mg 03/26/21 06:41 03/28/21 13:23 Hydromorphone Hcl 0.5 Mg/0.5 Ml Syringe IVPUSH 0.5 mg Q4H PRN Administration Breakthrough Pain Levothyroxine Sodium 75 mcg 03/26/21 06:30 03/29/21 05:40 Levothyroxine Sodium 75 Mcg Tablet PO 75 mcg DAILY@0630 [facility] Administration Lisinopril 10 mg 03/26/21 09:00 03/29/21 08:02 Lisinopril 10 Mg Tablet PO 10 mg DAILY [facility] Administration Protocol Loratadine 10 mg 03/26/21 09:00 03/29/21 08:01 Loratadine 10 Mg Tablet PO 10 mg DAILY [facility] Administration Meclizine HCl 25 mg 03/25/21 23:14 03/26/21 20:35 Meclizine Hcl 25 Mg Tablet PO 25 mg QID PRN Administration dizziness Metoprolol Tartrate 50 mg 03/26/21 09:00 03/29/21 08:02 Metoprolol Tartrate 50 Mg Tablet PO 50 mg BID [facility] Administration Protocol Multivitamins/Vitamin C 1 tab 03/26/21 09:00 03/29/21 08:01 Multivitamin Tablet PO 1 tab DAILY [facility] Administration Non-Formulary Medication 50 mg 03/26/21 09:00 Milnacipran PO BID [facility] Omeprazole 20 mg 03/26/21 06:30 03/29/21 05:40 Omeprazole 20 Mg Capsule.Dr PO 20 mg DAILY@0630 [facility] Administration Oxycodone HCl 5 mg 03/27/21 08:00 03/29/21 09:11 Oxycodone Hcl Immed Release 5 Mg Tablet PO 5 mg Q4H PRN Administration severe pain Pharmacy Consult 1 each 03/25/21 21:16 Consult Rx Perform Med Rec MISCELLANE ONCE PRN Consult order Pravastatin Sodium 20 mg 03/26/21 21:00 03/28/21 21:18 Pravastatin Sodium 20 Mg Tablet PO 20 mg BEDTIME FRANDY Administration Senna 17.2 mg 03/25/21 22:00 Sennosides 8.6 Mg Tablet PO BEDTIME PRN Constipation Sodium Chloride 3 ml 03/26/21 00:00 03/29/21 09:10 0.9 % Sodium Chloride Flush 3 Ml Syringe IVFLUSH 3 ml QSHIFT [facility] Administration Home Medications Medication Instructions Recorded Confirmed Last Taken Type alprazolam 0.5 mg tablet 0.5 mg PO TID PRN 08/11/20 03/25/21 Unknown History ascorbic acid (vitamin C) 250 mg 250 mg PO DAILY 08/11/20 03/25/21 03/25/21 History tablet calcium carbonate 600 mg calcium 600 mg PO DAILY 08/11/20 03/25/21 03/25/21 History (1,500 mg) tablet docusate sodium 100 mg capsule 100 mg PO BID 08/11/20 03/25/21 03/25/21 History ferrous sulfate 325 mg (65 mg 325 mg PO DAILY 08/11/20 03/25/21 03/25/21 History iron) tablet fluticasone propionate 110 2 puff INHALATION BID 08/11/20 03/25/21 03/25/21 History mcg/actuation HFA aerosol inhaler folic acid 1 mg tablet 1 mg PO DAILY 08/11/20 03/25/21 03/25/21 History furosemide 20 mg tablet 20 mg PO DAILY 08/11/20 03/25/21 03/25/21 History levothyroxine 75 mcg tablet 75 mcg PO DAILY 08/11/20 03/25/21 03/25/21 History loratadine 10 mg tablet 10 mg PO DAILY 08/11/20 03/25/21 03/25/21 History milnacipran 50 mg tablet 50 mg PO BID 08/11/20 03/25/21 03/25/21 History multivitamin 1 tab PO DAILY 08/11/20 03/25/21 03/25/21 History omeprazole 20 mg capsule,delayed 20 mg PO DAILY 08/11/20 03/25/2121 History release pravastatin 20 mg tablet 20 mg PO BEDTIME 08/11/20 03/25/21 03/24/21 History fluticasone propionate 1 spray INTRANASAL BID PRN 03/25/21 03/25/21 Unknown History meclizine 1 tab PO QID PRN 03/25/21 03/25/21 03/25/21 History Physical Exam Vital Signs: Vital Signs: Last Vital Signs Temp 97.0 F 03/29/21 11:07 Pulse 79 03/29/21 11:07 Resp 18 03/29/21 11:07 BP 128/64 03/29/21 11:07 Pulse Ox 94 03/29/21 11:07 Body Mass Index 50.5 Const: General: cooperative, healthy appearing, comfortable and no acute distress Orientation/consciousness: patient oriented x3 HENMT: Face and sinus: Yes normal facial exam Mouth: moist mucous membranes Neck: Neck: Yes normal visual inspection, Yes full ROM and Yes trachea midline Chest: Chest palpation & inspection: normal inspection of the chest Resp: Effort & Inspection: normal respiratory effort, able to speak in complete sentences and no respiratory distress GI: Inspection: Yes normal to inspection Back/Spine/Pelvis: Cervical Spine: normal cervical lordosis Thoracic/Lumbar Spine: thoracic and lumbar spine normal to inspection Skin: General skin exam: no rashes or lesions noted Neuro: General: patient oriented x3, gait normal, tone normal and moves all extremities Extrem: General: Yes normal to inspection and Yes capillary refill normal Results Labs Result diagrams: 03/27/21 05:51 03/27/21 05:51 Labs: Urine 03/25/21 03/26/21 Range/Units 14:15 01:14 Urine Color BROWN BROWN Urine Appearance CLOUDY CLOUDY Urine pH 5.5 6.0 (5.0-8.0) Ur Specific [place] 1.020 1.010 (1.005-1.025) Urine Protein 2+ H 2+ H (NEG-TRACE) MG/DL Urine Glucose (UA) NEG NEG (NEG) MG/DL All other labs normal. Assessment and Plan (1) Pyelonephritis: Status: Acute (2) Lactic acidosis: Status: Acute initial treatment IV antibiotics transition to oral medication for total of 14 days based on culture result Levaquin would be 1st recommendation follow-up in office in 4-6 weeks for review of recurrent UTI risk Procedures Date of Service Date of Service: 03/29/21
== END 2021-03-29 14:10 | disposition home or self-care (01) | DRG 872 ==
LOC: HO.ED 21:31 → HO.EDOVER 22:26 → HO.IMC 22:29
PROVIDERS: Family Medicine; Physician Assistant; Admitting Provider Hospitalist; Emergency Provider Emergency Medicine; PCP Internal Medicine; Visit Provider Hospitalist
DX: A41.9 Sepsis, unspecified organism (principal); I42.9 Cardiomyopathy, unspecified; N10 Acute pyelonephritis; Z68.43 Body mass index [BMI] 50.0-59.9, adult; Z16.11 Resistance to penicillins; Z16.24 Resistance to multiple antibiotics; E87.6 Hypokalemia; M32.9 Systemic lupus erythematosus, unspecified; R65.20 Severe sepsis without septic shock; I48.91 Unspecified atrial fibrillation; E03.9 Hypothyroidism, unspecified; M79.7 Fibromyalgia; I48.0 Paroxysmal atrial fibrillation; E66.01 Morbid (severe) obesity due to excess calories; B96.20 Unspecified Escherichia coli [E. coli] as the cause of diseases classified elsewhere; R31.0 Gross hematuria; Z96.653 Presence of artificial knee joint, bilateral; Z20.822 Contact with and (suspected) exposure to COVID-19; Z88.0 Allergy status to penicillin; Z79.51 Long term (current) use of inhaled steroids; Z79.890 Hormone replacement therapy; Z79.899 Other long term (current) drug therapy
CPT/HCPCS: 36415; 76775; 80048; 80076; 81001; 81003; 82365; 82550; 83605; 83690; 83735; 85025; 85027; 85610; 85730; 87040; 87086; 87088; 87186; 87635; 93005; 94640; 99285; J0696; J1170

== ENCOUNTER → 2021-05-18 14:51 | Outpatient (BNVA) | payer OTHER, SELFPAY | PROVIDERS: PCP Internal Medicine | DX: N12 Tubulo-interstitial nephritis, not specified as acute or chronic (principal) | CPT/HCPCS: 99202 ==

== ENCOUNTER 2021-07-16 15:25 | Outpatient (REF) | payer OTHER, SELFPAY ==
--- NOTE | ~2021-07-16 | US_ITS ---
EXAMINATION: US RETROPERITONEAL LIMITED (RENAL ONLY) CLINICAL INFORMATION: Tubulointerstitial nephritis. COMPARISON: Renal ultrasound 03/25/2021. CT abdomen and pelvis 08/26/2018. TECHNIQUE: Real-time imaging of the kidneys. FINDINGS: RIGHT KIDNEY: 9.9 x 5.0 x 4.4 cm (SAG x AP x TRV). The kidney is normal in size, contour, and echogenicity. Renal cortical thickness is normal. No calculi or focal parenchymal lesions. No hydronephrosis. LEFT KIDNEY: 8.9 x 5.6 x 5.1 cm (SAG x AP x TRV). The kidney is normal in size, contour, and echogenicity. Renal cortical thickness is normal. No calculi or focal parenchymal lesions. No hydronephrosis. US/US renal BI IMPRESSION: Unremarkable examination.
== END 2021-07-16 15:26 | disposition home or self-care (01) ==
LOC: HO.US 15:25
DX: N12 Tubulo-interstitial nephritis, not specified as acute or chronic (principal)
CPT/HCPCS: 76775

== ENCOUNTER → 2021-08-17 12:24 | Outpatient (BNVA) | payer OTHER, SELFPAY | PROVIDERS: PCP Internal Medicine; Visit Provider Internal Medicine Cardiovascular Disease | DX: I51.81 Takotsubo syndrome (principal); I48.0 Paroxysmal atrial fibrillation; I10 Essential (primary) hypertension | CPT/HCPCS: 93005; 99212 ==

== ENCOUNTER 2021-12-02 17:10 | Emergency (ER) | payer OTHER, SELFPAY ==
--- NOTE | ~2021-12-02 | CT_ITS ---
EXAMINATION: CT ABDOMEN AND PELVIS WITHOUT CONTRAST CLINICAL INFORMATION: Hematuria and flank pain COMPARISON: Previous CT of the abdomen and pelvis August 2018 and renal ultrasound July 2021 TECHNIQUE: Multidetector volumetric imaging was performed from the superior aspect of the liver through the pubic symphysis. Sagittal and coronal reformatted images were obtained on the technologist's workstation. This CT examination was performed using dose optimization techniques as appropriate, variously including the following: *Automated exposure control *Adjustment of mA and/or kV according to patient size (this includes techniques or standardized protocols for targeted exams where dose is matched to indication/reason for exam; i.e. extremities or head) *Use of iterative reconstruction technique DLP: 969 mGy-cm FINDINGS: LUNG BASES: The visualized lung bases are unremarkable. LIVER, GALLBLADDER, AND BILIARY TREE: The liver is normal in size, shape, and attenuation. No focal hepatic lesion or biliary ductal dilatation is present. The gallbladder has been removed. PANCREAS: Unremarkable. SPLEEN: Unremarkable. ADRENAL GLANDS: Unremarkable. KIDNEYS AND URETERS: The kidneys are normal in size, shape, and attenuation. No hydronephrosis, hydroureter, or calculi seen. No perinephric stranding. BLADDER: Empty and not well evaluated. GASTROINTESTINAL TRACT: diverticulosis of the colon. No evidence of diverticulitis is seen. The small and large bowel are otherwise unremarkable. The appendix is unremarkable. ABDOMINAL WALL: No significant hernia is appreciated. LYMPH NODES: Normal. VASCULAR: Unremarkable. PELVIC VISCERA: There is low-attenuation seen centrally in the uterus questionable for endometrial fluid or thickening. Follow-up elective pelvic ultrasound recommended, particularly the patient has history of vaginal bleeding. Adnexa appear unremarkable. OSSEOUS STRUCTURES: There are degenerative changes of the spine. CT/CT abdomen pelvis wo con IMPRESSION: Normal-appearing kidneys. Bladder is empty and not well evaluated. Low-attenuation seen centrally in the uterus questionable for endometrial fluid or thickening. Follow-up elective pelvic ultrasound recommended, particularly if the patient has history of vaginal bleeding. Fleischner guidelines were followed.
[2021-12-02 18:14] VITALS: BP 150/87; PULSE 77; RESP 18; TEMP 36.6; O2SAT 97; BMI 45.3
[2021-12-02 18:30] LABS: Basophils Percent Auto 0.1 % (0-2); Eosinophils Absolute Auto 0.1 X10*3/uL (0.0-0.4); Eosinophils Percent Auto 1.6 % (0-4); Hematocrit 40.9 % (37.0-47.0); Hemoglobin 13.4 g/dl (12.0-16.0); Imm Gran Abs Auto 0.02 X10*3/uL (0.00-0.03); Imm Gran Pct Auto 0.3 % (0.0-0.4); Lymphocytes Absolute Auto 2.9 X10*3/uL (1.2-4.9); MANUAL DIFF FLAG NO; Mean Corpuscular HGB Conc 32.8 g/dl (31.0-35.0); Mean Corpuscular Hemoglobin 25.6 pg (27.0-33.0); Mean Corpuscular Volume 78.1 fL (80.0-98.0); Mean Platelet Volume 9.7 fL (9.4-12.3); Monocytes Absolute Auto 0.5 X10*3/uL (0.1-1.2); Monocytes Percent Auto 6.2 % (2-11); Neutrophils Absolute Auto 4.4 x10*3/uL (2.0-8.3); Neutrophils Percent Auto 55.8 % (45-73); Platelet Count 370 X10*3/uL (160-400); Red Blood Count 5.24 X10*6/uL (4.20-5.50); Red Cell Distribution Width 16.4 % (11.0-16.0); White Blood Count 7.9 X10*3/uL (4.8-10.8)
[2021-12-02 18:36] LABS: Appearance Urine CLEAR; Color Urine YELLOW; Glucose Urine UA NEG (NEG); Leukocyte Esterase Urine TRACE (NEG); Nitrite Urine NEG (NEG); UACC Culture Trigger YES; Urine Blood 3+ (NEG); Urine Ketones NEG (NEG); Urine Protein TRACE MG/DL (NEG-TRACE)
[2021-12-02 18:42] LABS: Anion Gap 14 (12-20); Blood Urea Nitrogen 12 mg/dL (9-16); Calcium 9.4 mg/dL (8.4-10.2); Carbon Dioxide 29 mmol/L (22-29); Chloride 102 mmol/L (96-108); Creatinine Clr Calc Pharmacy 77.5; Estimated Glomerular Filt Rate > 60; Glucose Random 115 mg/dL (60-115); Potassium 4.1 mmol/L (3.3-5.1); Sodium 141 mmol/L (135-145)
[2021-12-02 19:21] LABS: RBC Urine 30-49 /HPF (0); Squamous Epithelial Cell Urine TRACE /LPF
[2021-12-02 21:34] VITALS: BP 156/100; PULSE 85; RESP 14; TEMP 36.7; O2SAT 100
--- NOTE | 2021-12-02 21:50 | ED.FEMALEGU ---
HPI - Female Genitourinary General Chief complaint: Urogenital-Female Stated complaint: Internal bleeding, sent by PCP Time Seen by Provider: 12/02/21 21:21 Source: patient Mode of arrival: ambulatory Limitations: no limitations History of Present Illness HPI Narrative: Patient is on Pradaxa for paroxysmal AFib history of gross hematuria in the past noticed increased hematuria for last 24 hours also noticed bleeding from vagina no blood clots also complaining of bilateral flank pain no shortness of breath no dizziness no weakness Related Data Home Medications Medication Instructions Recorded Confirmed alprazolam 0.5 mg tablet 0.5 mg PO TID PRN 08/11/20 08/17/21 ascorbic acid (vitamin C) 250 mg 250 mg PO DAILY 08/11/20 08/17/21 tablet calcium carbonate 600 mg calcium 600 mg PO DAILY 08/11/20 08/17/21 (1,500 mg) tablet docusate sodium 100 mg capsule 100 mg PO BID 08/11/20 08/17/21 ferrous sulfate 325 mg (65 mg 325 mg PO DAILY 08/11/20 08/17/21 iron) tablet fluticasone propionate 110 2 puff INHALATION BID 08/11/20 08/17/21 mcg/actuation HFA aerosol inhaler folic acid 1 mg tablet 1 mg PO DAILY 08/11/20 08/17/21 furosemide 20 mg tablet 20 mg PO DAILY 08/11/20 08/17/21 levothyroxine 75 mcg tablet 75 mcg PO DAILY 08/11/20 08/17/21 loratadine 10 mg tablet 10 mg PO DAILY 08/11/20 08/17/21 milnacipran 50 mg tablet 50 mg PO BID 08/11/20 08/17/21 multivitamin 1 tab PO DAILY 08/11/20 08/17/21 omeprazole 20 mg capsule,delayed 20 mg PO DAILY 08/11/20 08/17/21 release pravastatin 20 mg tablet 20 mg PO BEDTIME 08/11/20 08/17/21 fluticasone propionate 50 1 spray INTRANASAL BID PRN 03/25/21 08/17/21 mcg/actuation nasal spray,suspension meclizine 25 mg tablet 1 tab PO QID PRN 03/25/21 08/17/21 multivitamin with folic acid 400 0 tab PO 05/18/21 mcg tablet (Daily-[place] (with folic acid)) Previous Rx's Medication Instructions Recorded metoprolol tartrate 50 mg tablet 50 mg PO BID 90 Days #180 tab 09/02/20 dronedarone 400 mg tablet (Multaq) 400 mg PO BID #60 tab 07/22/21 dabigatran etexilate 150 mg 150 mg PO BID 90 Days #180 cap 07/23/21 capsule (Pradaxa) lisinopril 10 mg tablet 10 mg PO DAILY #28 tab 07/27/21 oxycodone-acetaminophen 5 mg-325 1 tab PO Q6H PRN #20 tab 12/02/21 mg tablet (Percocet) Allergies Allergy/AdvReac Type Severity Reaction Status Date / Time duloxetine [From CYMBALTA] Allergy Severe Anaphylaxis Verified 12/02/21 18:14 Penicillins Allergy Severe ANAPHYLAXIS Verified 12/02/21 18:14 STEROIDS Allergy Severe UNKNOWN Verified 12/02/21 18:14 Crustaceans Allergy Severe RESP Uncoded 12/02/21 18:14 PROBLEMS SHELLFISH Allergy Severe NUMBNESS Uncoded 12/02/21 18:14 SWELLING MOUTH Cortisone Allergy Unknown unknown Uncoded 12/02/21 18:14 Review of Systems Review of Systems: Yes all other systems are reviewed and are negative PMFSH Past Medical History Medical History Arthritis Back pain, chronic Bronchitis Carpal tunnel syndrome Chronic back pain Edema Elevated partial thromboplastin time (PTT) Fibromyalgia Glaucoma HTN (hypertension) Hypothyroid Lupus Migraine Morbid obesity Paroxysmal atrial fibrillation Pulmonary embolism Raynauds disease SVT (supraventricular tachycardia) Takotsubo cardiomyopathy Tendinitis Thyroid nodule Surgical History History of total bilateral knee replacement (TKR) History of tubal ligation Hx of cholecystectomy Hx of tonsillectomy Family History Family History Father No problems noted. Mother CVD (cardiovascular disease) Brother Stomach cancer Social History Social History Household Members: Family Housing: Apartment Do you presently have visiting nurse or other home services: Yes (son helps with bathing) Patient Tobacco Use Status: Never used Tobacco Advance Directives: Yes Advance Directives Information Provided: No Advance Directives on File: No Advance Directives Date on File: 03/25/21 service: No Current occupational status: disabled Current occupation: right handed Physical Exam Vital Signs: Vital Signs: Last Vital Signs Temp 98.1 F 12/02/21 21:34 Pulse 85 12/02/21 21:34 Resp 14 12/02/21 21:34 BP 156/91 H 12/02/21 23:22 Pulse Ox 100 12/02/21 21:34 BMI result Body Mass Index 45.3 Appearance: Alert. Oriented X3. No acute distress. Eyes: No pallor/ icterus ENT: Pharynx normal. Oral Mucosa moist Neck: Normal inspection. Neck supple. CVS: Normal heart rate and rhythm. Pulses normal. Respiratory: No respiratory distress. Equal air entry bilateral, no wheezing/rales/rhonchi Abdomen: Soft and nontender. Bowel sounds are present, no mass palpable, b/l CVA tenderness Skin: Skin warm and dry. Normal skin color. Normal skin turgor. Extremities: No lower extremity edema. No calf tenderness Neuro: Oriented X 3. MDM - Female Genitourinary MDM Narrative Medical decision making narrative: Patient with history of gross hematuria comes here for worsening of hematuria on Pradaxa hemoglobin stable vitals stable also has bilateral pain history of pyelonephritis in the past will do a CT scan of the abdomen to rule out any stone. When patient urinated in the ER was yellow and patient has not taken her evening Pradaxa Lab Data Attestation: I reviewed the patient's lab results. Result diagrams: 12/02/21 18:24 12/02/21 18:24 Labs: Lab Results 12/02/21 12/02/21 12/02/21 Range/Units 18:24 18:24 18:29 WBC 7.9 (4.8-10.8) X10*3/uL RBC 5.24 (4.20-5.50) X10*6/uL Hgb 13.4 (12.0-16.0) g/dl Hct 40.9 (37.0-47.0) % MCV 78.1 L (80.0-98.0) fL MCH 25.6 L (27.0-33.0) pg MCHC 32.8 (31.0-35.0) g/dl RDW 16.4 H (11.0-16.0) % Plt Count 370 (160-400) X10*3/uL MPV 9.7 (9.4-12.3) fL Immature Gran % (Auto) 0.3 (0.0-0.4) % Neut % (Auto) 55.8 (45-73) % Lymph % (Auto) 36.0 (20-40) % [place] % (Auto) 6.2 (2-11) % Eos % (Auto) 1.6 (0-4) % Baso % (Auto) 0.1 (0-2) % Lymph # (Auto) 2.9 (1.2-4.9) X10*3/uL [place] # (Auto) 0.5 (0.1-1.2) X10*3/uL Eos # (Auto) 0.1 (0.0-0.4) X10*3/uL Baso # (Auto) 0.0 (0.0-0.2) X10*3/uL Abs Immat Gran (auto) 0.02 (0.00-0.03) X10*3/uL Absolute Neuts (auto) 4.4 (2.0-8.3) x10*3/uL Absolute Nucleated RBC 0.000 (0.0-0.012) X10*3/uL Nucleated RBC % (auto) 0.0 (0.0-0.2) /100WBC Sodium 141 (135-145) mmol/L Potassium 4.1 (3.3-5.1) mmol/L Chloride 102 (96-108) mmol/L Carbon Dioxide 29 (22-29) mmol/L Anion Gap 14 (12-20) BUN 12 (9-16) mg/dL Creatinine 0.89 (0.5-1.4) mg/dL Estim Creat Clear Calc 77.5 Estimated GFR > 60 Random Glucose 115 (60-115) mg/dL Calcium 9.4 D (8.4-10.2) mg/dL TSH 1.11 (0.32-4.0) uIU/mL Urine Color YELLOW Urine Appearance CLEAR Urine pH 6.0 (5.0-8.0) Ur Specific [place] 1.020 (1.005-1.025) Urine Protein TRACE (NEG-TRACE) MG/DL Urine Glucose (UA) NEG (NEG) MG/DL Urine Ketones NEG (NEG) MG/DL Urine Blood 3+ H (NEG) Urine Nitrite NEG (NEG) Ur Leukocyte Esterase TRACE H (NEG) Urine RBC 30-49 H (0) /HPF Urine WBC 1-4 (0-4) /HPF Ur Squamous Epith Cells TRACE /LPF Urine Bacteria NONE /LPF Discharge Plan Discharge Clinical Impression: Hematuria, Vagina bleeding Patient Disposition: Home, Self-Care Instructions: Dysfunctional Uterine Bleeding (ED), Hematuria (ED) Additional Instructions: Hold Pradaxa until bleeding stops And then restart once bleeding stops Drink plenty of fluids Report to the ER/extension agent if bleeding continues Prescriptions: New oxycodone-acetaminophen [Percocet] 5-325 mg tablet 1 tab PO Q6H PRN (Reason: pain) Qty: 20 0RF No Action metoprolol tartrate 50 mg tablet 50 mg PO BID 90 Days Qty: 180 3RF Multaq 400 mg tablet 400 mg PO BID Qty: 60 5RF Rx Instructions: must administer with a meal/food Pradaxa 150 mg capsule 150 mg PO BID 90 Days Qty: 180 1RF Hold Instructions: Resume on 04/02/21. lisinopril 10 mg tablet 10 mg PO DAILY Qty: 28 5RF meclizine 25 mg tablet 1 tab PO QID PRN (Reason: dizziness) 0RF fluticasone propionate 50 mcg/actuation spray,suspension 1 spray intranasal BID PRN (Reason: Allergy Symptoms) 0RF folic acid 1 mg tablet 1 mg PO DAILY 0RF milnacipran 50 mg tablet 50 mg PO BID 0RF loratadine 10 mg tablet 10 mg PO DAILY 0RF furosemide 20 mg tablet 20 mg PO DAILY 0RF pravastatin 20 mg tablet 20 mg PO BEDTIME 0RF omeprazole 20 mg capsule,delayed release(DR/EC) 20 mg PO DAILY 0RF docusate sodium 100 mg capsule 100 mg PO BID 0RF ferrous sulfate 325 mg (65 mg iron) tablet 325 mg PO DAILY 0RF ascorbic acid (vitamin C) 250 mg tablet 250 mg PO DAILY 0RF calcium carbonate 600 mg calcium (1,500 mg) tablet 600 mg PO DAILY 0RF levothyroxine 75 mcg tablet 75 mcg PO DAILY 0RF multivitamin Tablet 1 tab PO DAILY 0RF alprazolam 0.5 mg tablet 0.5 mg PO TID PRN (Reason: Anxiety) 0RF fluticasone propionate 110 mcg/actuation HFA aerosol inhaler 2 puff inhalation BID 0RF Interventions: ED Discharge Assessment Last Done: 12/02/21 23:08 Discharge Date/Time: 12/02/21 23:40
[2021-12-02] MEDS: oxyCODONE HCl Immed Release 5 MG TABLET PO (23:12)
[2021-12-02 23:15] LABS: Thyroid Stimulating Hormone 1.11 uIU/mL (0.32-4.0)
[2021-12-02 23:22] VITALS: BP 156/91
== END 2021-12-02 23:40 | disposition home or self-care (01) ==
PROVIDERS: Emergency Provider Internal Medicine; PCP Internal Medicine
DX: N93.9 Abnormal uterine and vaginal bleeding, unspecified (principal); R31.9 Hematuria, unspecified; I48.0 Paroxysmal atrial fibrillation; I11.0 Hypertensive heart disease with heart failure; I50.9 Heart failure, unspecified; M32.9 Systemic lupus erythematosus, unspecified; Z79.01 Long term (current) use of anticoagulants; Z98.51 Tubal ligation status; Z90.49 Acquired absence of other specified parts of digestive tract
CPT/HCPCS: 36415; 74176; 80048; 81001; 81003; 84443; 85025; 87086; 99284

== ENCOUNTER 2022-02-23 13:15 | Outpatient (REF) | payer OTHER, SELFPAY ==
[2022-03-02 11:51] LABS: HPV mRNA E6/E7 rflx Not Detected (Not Detected)
== END 2022-02-23 13:16 | disposition home or self-care (01) ==
LOC: HO.LAB 13:15
PROVIDERS: Visit Provider Obstetrics & Gynecology
DX: Z12.4 Encounter for screening for malignant neoplasm of cervix (principal); Z11.51 Encounter for screening for human papillomavirus (HPV); N95.0 Postmenopausal bleeding
CPT/HCPCS: 87624; 88142; 99202

== ENCOUNTER 2022-03-02 15:28 | Outpatient (REF) | payer OTHER, SELFPAY ==
[2022-03-02 17:25] LABS: Urine Cytology See Pathology rpt
== END 2022-03-02 15:29 | disposition home or self-care (01) ==
LOC: HO.LAB 15:28
PROVIDERS: PCP Internal Medicine
DX: R31.9 Hematuria, unspecified (principal)
CPT/HCPCS: 88112; 99212

== ENCOUNTER 2022-03-03 13:00 | Outpatient (REF) | payer OTHER, SELFPAY ==
--- NOTE | ~2022-03-03 | US_ITS ---
EXAMINATION: US PELVIS CLINICAL INFORMATION: Postmenopausal bleeding. COMPARISON: CT abdomen/pelvis dated from 12/02/2021. TECHNIQUE: Ultrasound of the pelvis is performed using both transabdominal and transvaginal transducers along with Doppler. Transvaginal imaging is performed due to inadequate visualization transabdominally. FINDINGS: The uterus measures 9 x 4.8 x 6 cm. There is a 1.5 cm intramural lesion in the right uterine body, favoring to represent a fibroid. There is abnormal thickening of the endometrium with heterogeneous content, measuring up to 3.3 cm in thickness. The ovaries are difficult to entirely delineate. The right ovary seems to measure approximately 2 x 1.2 x 1.3 cm (2 mL), and the left ovary appears to measure 1.3 x 0.9 x 0.9 cm (0.6 mL). In the right adnexa, there is a nonspecific anechoic structure measuring 2.2 x 1.4 x 1.7 cm. When compared to the recent CT from December, a clear correlate to this structure is not identified. US/US pelvic and transvaginal IMPRESSION: Abnormal endometrium with heterogeneous vascular content and marked thickening, concerning for endometrial carcinoma. Recommend MANUFACTURING PROCESS ENGINEER consultation. Nonspecific anechoic structure in the right adnexa, further characterization with an MR of the pelvis with and without intravenous contrast could be obtained if indicated.
== END 2022-03-03 13:01 | disposition home or self-care (01) ==
LOC: HO.US 13:00
PROVIDERS: Visit Provider Obstetrics & Gynecology
DX: N95.0 Postmenopausal bleeding (principal)
CPT/HCPCS: 76830; 76856

== ENCOUNTER 2022-03-20 13:17 | Emergency (ER) | payer OTHER, SELFPAY ==
--- NOTE | ~2022-03-20 | US_ITS ---
EXAMINATION: US renal LT CLINICAL INFORMATION: Reason for Exam flank pain COMPARISON: Pelvic ultrasound 03/03/2022. CT abdomen pelvis 12/02/2021. TECHNIQUE: Transabdominal grayscale and color ultrasonography of the left kidney. Only left kidney requested per ordering service per the technologist note. FINDINGS: Left kidney measures 8.1 cm x 5.4 cm x 5.9 cm. No hydronephrosis or perinephric fluid collections noted. A single rounded 1.2 cm anechoic focus with posterior acoustic enhancement and well-circumscribed margins is noted superiorly within the right kidney is consistent with a simple cyst requiring no additional imaging follow-up. This region demonstrates no color flow on color Doppler interrogation. US/US renal LT IMPRESSION: Normal sonographic appearance of the right kidney. No hydronephrosis. No right-sided nephrolithiasis identified.
--- NOTE | ~2022-03-20 | CT_ITS ---
EXAMINATION: CT HEAD WITHOUT CONTRAST CLINICAL INFORMATION: Dizziness COMPARISON: 12/03/2020 TECHNIQUE: Contiguous axial imaging was performed from the skull base to vertex without intravenous administration of contrast. This CT examination was performed using dose optimization techniques as appropriate, variously including the following: *Automated exposure control *Adjustment of mA and/or kV according to patient size (this includes techniques or standardized protocols for targeted exams where dose is matched to indication/reason for exam; i.e. extremities or head) *Use of iterative reconstruction technique DLP: 719 mGy-cm FINDINGS: There is no evidence of acute intracranial hemorrhage or territorial infarction. No abnormal mass effect or midline shift is seen. Hubbard to white matter differentiation is well preserved. No extra-axial fluid collections are identified. The ventricles are normal in size. There is no abnormal attenuation within the brain parenchyma. The osseous structures and soft tissues are normal. The mastoid air cells and visualized portions of the paranasal sinuses are well aerated. CT/CT head/brain wo con IMPRESSION: No acute intracranial pathology.
--- NOTE | ~2022-03-20 | US_ITS ---
EXAMINATION: US VENOUS ULTRASOUND WITH DOPPLER LOWER EXTREMITY, LEFT CLINICAL INFORMATION: Left leg pain and swelling. COMPARISON: None TECHNIQUE: Ultrasound of the deep veins is performed from the hip to the calf with compression sonography and color and pulse Doppler assessment. Spectral analysis with color-flow imaging is performed. FINDINGS: There is normal venous compression and respiratory variation and augmented flow. The visualized common femoral vein, superficial femoral vein, profunda femoral vein, popliteal vein, and the trifurcation region shows no evidence of deep venous thrombosis. There is no significant popliteal fossa cyst. Of note, the distal femoral vein is suboptimally visualized. If the patient's symptoms persist, followup ultrasound in 5 days 7 days might be of value to exclude proximal propagation from a non-visualized calf vein. US/US venous duplex LE IMPRESSION: No DVT demonstrated in the left lower extremity.
[2022-03-20 13:20] VITALS: BP 184/79; PULSE 94; RESP 18; TEMP 36.6; O2SAT 98; BMI 47.2
[2022-03-20 15:37] VITALS: BP 122/77; PULSE 83; RESP 18; TEMP 36.9; O2SAT 97
--- NOTE | 2022-03-20 15:41 | PC.NURSE ---
patient a&ox3, vss, pt c/o lt back pain and frequent urination, obtained urine sample, pt awaiting for provider, will continue to monitor.
--- NOTE | 2022-03-20 16:03 | ED_ITS ---
HPI - General Adult General Chief complaint: General Medical Stated complaint: problem urinating Time Seen by Provider: 03/20/22 15:45 Source: patient Mode of arrival: ambulatory Limitations: no limitations History of Present Illness HPI narrative: 61-year-old female with a past medical history of fibromyalgia, HTN, hypothyroid, lupus, obesity, proximal AFib on Pradaxa, Raynaud's, SVT, cardiomyopathy here with multiple complaints. Patient tells me for the last 3 months she has had intermittent flank pain/abdominal pain with urinary dysuria, voiding small amounts, hematuria. She has had pyelo/UTI's. She is being followed by urology and has renal US every 3 months, had recent urine cytology testing (03/02) and they are planning to follow her and may or may not do a cystoscopy. Patient also seeing followed by gynecology and had a recent pelvic ultrasound that showed an abnormal endometrial thickening. Patient tells me she was supposed to see them on March 18 to review the results but she missed her eptra ointment. She tells me that she has had these symptoms for the last few months that are intermittent. She is most concerned that she is having worsening left-sided back pain and may have a kidney stone or kidney infection. She denies any associated fevers, chills, vomiting diarrhea or constipation. No abdominal pain. Patient also complaining of dizziness with underlying history of a vertigo which is unrelieved her home medical. She tells me that she has intermittent dizziness for months. It may occur while rest or with moving. It is worsened if she moves her head side to side. She denies any recent URI symptoms or ear pain. No associated headache, weakness or numbness or tingling of the extremities, or vision changes, vomiting. She also feels like her left leg is swollen. She has a history of AFib but has been compliant on Pradaxa. She has not missed any days. Her leg feels like it has been swollen over the last 2 weeks. She has been compliant with her diuretics. She denies any associated shortness of breath or chest pain. She denies any injury or trauma. There is no pain in the leg but she feels like it is swollen. Related Data Home Medications Medication Instructions Recorded Confirmed alprazolam 0.5 mg tablet 0.5 mg PO TID PRN Anxiety 08/11/20 08/17/21 ascorbic acid (vitamin C) 250 mg 250 mg PO DAILY 08/11/20 08/17/21 tablet calcium carbonate 600 mg calcium 600 mg PO DAILY 08/11/20 08/17/21 (1,500 mg) tablet docusate sodium 100 mg capsule 100 mg PO BID 08/11/20 08/17/21 ferrous sulfate 325 mg (65 mg 325 mg PO DAILY 08/11/20 08/17/21 iron) tablet fluticasone propionate 110 2 puff inhalation BID 08/11/20 08/17/21 mcg/actuation HFA aerosol inhaler folic acid 1 mg tablet 1 mg PO DAILY 08/11/20 08/17/21 furosemide 20 mg tablet 20 mg PO DAILY 08/11/20 08/17/21 levothyroxine 75 mcg tablet 75 mcg PO DAILY 08/11/20 08/17/21 loratadine 10 mg tablet 10 mg PO DAILY 08/11/20 08/17/21 milnacipran 50 mg tablet 50 mg PO BID 08/11/20 08/17/21 multivitamin 1 tab PO DAILY 08/11/20 08/17/21 omeprazole 20 mg capsule,delayed 20 mg PO DAILY 08/11/20 08/17/21 release pravastatin 20 mg tablet 20 mg PO BEDTIME 08/11/20 08/17/21 fluticasone propionate 50 1 spray intranasal BID PRN Allergy 03/25/21 08/17/21 mcg/actuation nasal Symptoms spray,suspension meclizine 25 mg tablet 1 tab PO QID PRN dizziness 03/25/21 08/17/21 multivitamin with folic acid 400 0 tab PO 05/18/21 mcg tablet (Daily-Clay[place] (with folic acid)) Previous Rx's Medication Instructions Recorded metoprolol tartrate 50 mg tablet 50 mg PO BID 90 days #180 tabs 09/02/20 dabigatran etexilate 150 mg 150 mg PO BID 90 days #180 caps 01/04/22 capsule (Pradaxa) dronedarone 400 mg tablet (Multaq) 400 mg PO BID 90 days #180 tabs 01/04/22 lisinopril 10 mg tablet 10 mg PO DAILY #28 tabs 01/04/22 Allergies Allergy/AdvReac Type Severity Reaction Status Date / Time duloxetine [From CYMBALTA] Allergy Severe Anaphylaxis Verified 03/02/22 15:29 Penicillins Allergy Severe ANAPHYLAXIS Verified 03/02/22 15:29 STEROIDS Allergy Severe UNKNOWN Verified 03/02/22 15:29 Crustaceans Allergy Severe RESP Uncoded 02/23/22 13:21 PROBLEMS SHELLFISH Allergy Severe NUMBNESS Uncoded 02/23/22 13:21 SWELLING MOUTH Cortisone Allergy Unknown unknown Uncoded 02/23/22 13:21 Review of Systems Review of Systems: Yes all other systems are reviewed and are negative Constitutional: Constitutional: Reports no additional constitutional complaints, Denies body ache(s), Denies chills, Denies fever(s), Denies headache(s) and Denies weakness Eyes: Eyes: Reports no additional eye complaints and Denies change in vision ENT: Reports system reviewed and no additional complaints, except as documented, Reports dizziness, Denies headache(s), Denies nasal congestion, Denies nasal discharge and Denies neck pain Cardiovascular: Cardiovascular: Reports no additional cardiovascular complaints, Denies chest pain, Reports leg edema and Denies dyspnea Respiratory: Respiratory: Reports no additional respiratory complaints, Denies cough and Denies dyspnea Gastrointestinal: Gastrointestinal: Reports no additional gastrointestinal complaints, Denies abdominal pain, Denies diarrhea, Denies nausea and Denies vomiting Genitourinary: Genitourinary: Reports no additional female genitourinary complaints, Denies dyspareunia, Denies dysuria, Reports flank pain, Denies urinary incontinence, Reports urinary hesitancy and Reports urinary urgency Comments: decreased urination Musculoskeletal: Musculoskeletal: Reports no additional musculoskeletal complaints, Reports back pain, Denies arthralgias, Denies joint swelling, Denies neck pain, Denies numbness and Denies tingling Integumentary/Breasts: Skin/Breast: Reports system reviewed and no additional complaints, except as docu and Denies rash Neurologic: Reports system reviewed and no additional complaints, except as documented, Reports dizziness, Denies headache(s), Denies numbness, Denies tingling and Denies weakness [facility] Past Medical History Attestation statement: The following information was validated with the patient. Source: old records reviewed and nursing notes reviewed Medical History Arthritis Back pain, chronic Bronchitis Carpal tunnel syndrome Chronic back pain Edema Elevated partial thromboplastin time (PTT) Fibromyalgia Glaucoma HTN (hypertension) Hypothyroid Lupus Migraine Morbid obesity Pulmonary embolism Raynauds disease Takotsubo cardiomyopathy Tendinitis Thyroid nodule Surgical History History of total bilateral knee replacement (TKR) History of tubal ligation Hx of cholecystectomy Hx of tonsillectomy Family History Family History Father No problems noted. Mother CVD (cardiovascular disease) Brother Stomach cancer Social History Social History Household Members: Family Housing: Apartment Do you presently have visiting nurse or other home services: Yes (son helps with bathing) Alcohol intake: never Patient Tobacco Use Status: Never used Tobacco Use of substances other than those prescribed or required for medical reasons: No Advance Directives: Yes Advance Directives on File: Yes Advance Directives Date on File: 03/25/21 Patient : No service: No Current occupational status: disabled Current occupation: right handed Physical Exam ED Vital Signs: Vital Signs - 24 hr 03/20/22 13:20 03/20/22 15:37 03/20/22 17:21 Temperature 98 F 98.5 F Pulse Rate 94 83 84 Respiratory Rate 18 18 Blood Pressure 184/79 H 122/77 117/60 Pulse Oximetry 98 97 Oxygen Delivery Method Room Air 03/20/22 17:21 03/20/22 17:22 Temperature Pulse Rate 75 94 Respiratory Rate Blood Pressure 121/67 115/75 Pulse Oximetry Oxygen Delivery Method BMI result Body Mass Index 47.2 Const General: cooperative, healthy appearing, comfortable and no acute distress Orientation/consciousness: patient oriented x3 Limitations: no limitations HENMT Head: Yes normal to inspection Ears: hearing grossly normal bilaterally and TM's normal bilaterally General nose exam: Normal external nose present Face and sinus: Yes normal facial exam Mouth: Normal oral and palatal mucosa present Teeth and gingiva: dentition normal Throat: Yes posterior oropharynx normal Eyes General: appearance normal, both eyes and all related structures Pupils: Equal, round and reactive pupils present Neck Neck: Yes normal visual inspection, Yes full ROM, Yes no lymphadenopathy and Yes no meningeal signs Chest Chest palpation & inspection: normal inspection of the chest Resp Effort & Inspection: normal respiratory effort Auscultation: clear to auscultation bilaterally Cardio Rate: regular rate Rhythm: regular rhythm Peripheral pulses: Peripheral pulses 2+ throughout GI Inspection: Yes normal to inspection Palpation (GI): Soft to palpation and nontender General: Yes no CVA tenderness Back/Spine/Pelvis Other: Tenderness to the left lumbar soft tissue area with no midline tenderness/step offs or deformities Back: no CVA tenderness Thoracic/Lumbar Spine: thoracic and lumbar spine normal to inspection Skin General skin exam: no rashes or lesions noted Neuro General: patient oriented x3, moves all extremities and no meningeal signs Cranial nerves: Yes CN's II-XII intact bilaterally, Yes Equal, round and reactive pupils present, Yes Bilaterally intact EOM present, Yes Nystagmus not present and Yes Normal facial strength present Cognition (Neuro): normal cognition Gait exam (Neuro): Normal gait present Motor exam (neuro): 5/5 motor strength present throughout Sensory Exam: Normal double simultaneous stimulation for sensation Coordination: [id number] test normal, [id number] test normal and tandem gait normal Extrem Other: There is bilateral edema of the lower extremities with no tenderness. The left is greater than the right. There is moderate edema the left calf and foot and ankle. It is nonpitting. There are palpable pulses distally. There is no redness or warmth or tenderness General: Yes normal to inspection Course Course Course Narrative: 1809 1-back pain acute on chronic. Renal ultrasound negative for any signs of pyelonephritis or renal colic. UA unremarkable. 2. Patient reports dysuria and voiding small amounts. UA is negative for infection. She is followed by Urology and has a follow-up appointment set up. She had a recent pelvic ultrasound that was concerning for endometrial malignancy. She missed her follow-up appointment to discuss the results. I recommend she contact them on Tuesday to speak to them about her ultrasound and to have a biopsy 3. Left leg swelling and pain. Ultrasound negative for DVT. No signs of redness, warmth concerning for cellulitis. Patient has underlying CHF. She does not appear to be fluid overloaded. She can wear compression stockings, elevate her legs 4. Dizziness for weeks. Neuro exam nonfocal. CT head negative. Patient has m eclizine at home that she can continue to take as needed Reviewed findings with patient. Recommend that she continue to follow-up with her specialist outpatient as well as her primary care. Reviewed worrisome signs and symptoms of when to return to the emergency department. Comfortable plan for discharge home. Medical Decision Making MDM Narrative Medical decision making narrative: ?61-year-old female with a past medical history of fibromyalgia, HTN, hypothyroid, lupus, obesity, proximal AFib on Pradaxa, Raynaud's, SVT, cardiomyopathy here with a constellation of complaints. And patient is had this chronic intermittent flank pain with urinary complaints and abdominal pain intermittent vaginal bleeding and or hematuria seen by both Urology and Gynecology with recent outpatient visits and planned for renal ultrasound, additional urine testing. Had pelvic ultrasound which showed a thickened endometrium with concern for malignancy. Patient missed her follow-up appointment to discuss the results of the ultrasound. She is here as she is concerned that the left-sided flank pain is worsened from baseline and having continued urinary symptoms. Her UA today is negative. Will obtain labs, renal US. The patient also complaining of dizziness for months unrelieved with home meclizine and left leg swelling and pain with no known history of DVT but does have underlying history of AFib and is on Pradaxa which she has been compliant with. Neuro exam is nonfocal. Vitals are stable. Lungs are clear. She does have some lower extremity edema left greater than right with no redness, warmth or pain. Will check labs, EKG, Ct head, orthostatic VS, venous US. Differential Diagnosis Differential Diagnosis: DVT, CHF, pyelo/renal colic/MS pain Medical Records Medical records reviewed: Yes I reviewed the patient's medical records. Lab Data Lab results reviewed: Yes I reviewed the patient's lab results. Result diagrams: 03/20/22 17:34 03/20/22 17:34 Labs: Lab Results 03/20/22 03/20/22 03/20/22 Range/Units 15:37 17:34 17:34 WBC 11.0 H (4.8-10.8) X10*3/uL RBC 5.09 (4.20-5.50) X10*6/uL Hgb 13.2 (12.0-16.0) g/dl Hct 39.2 (37.0-47.0) % MCV 77.0 L (80.0-98.0) fL MCH 25.9 L (27.0-33.0) pg MCHC 33.7 (31.0-35.0) g/dl RDW 16.0 (11.0-16.0) % Plt Count 402 H (160-400) X10*3/uL MPV 9.4 (9.4-12.3) fL Immature Gran % (Auto) 0.3 (0.0-0.4) % Neut % (Auto) 65.8 (45-73) % Lymph % (Auto) 26.8 (20-40) % [place] % (Auto) 5.6 (2-11) % Eos % (Auto) 1.3 (0-4) % Baso % (Auto) 0.2 (0-2) % Lymph # (Auto) 2.9 (1.2-4.9) X10*3/uL [place] # (Auto) 0.6 (0.1-1.2) X10*3/uL Eos # (Auto) 0.1 (0.0-0.4) X10*3/uL Baso # (Auto) 0.0 (0.0-0.2) X10*3/uL Abs Immat Gran (auto) 0.03 (0.00-0.03) X10*3/uL Absolute Neuts (auto) 7.2 (2.0-8.3) x10*3/uL Absolute Nucleated RBC 0.000 (0.0-0.012) X10*3/uL Nucleated RBC % (auto) 0.0 (0.0-0.2) /100WBC Sodium 143 (135-145) mmol/L Potassium 3.4 (3.3-5.1) mmol/L Chloride 102 (96-108) mmol/L Carbon Dioxide 32 H (22-29) mmol/L Anion Gap 12 (12-20) BUN 10 (9-16) mg/dL Creatinine 0.87 (0.5-1.4) mg/dL Estim Creat Clear Calc 80.3 Estimated GFR > 60 Random Glucose 90 (60-115) mg/dL Calcium 9.1 (8.4-10.2) mg/dL Magnesium 2.1 (1.6-2.6) mg/dL Total Bilirubin 0.4 (0.0-1.0) mg/dL Direct Bilirubin 0.2 (0.0-0.5) mg/dL AST 27 (5-31) U/L ALT 22 (0-31) U/L Alkaline Phosphatase 114 (39-117) U/L Troponin I High Sens (<3.5-17.0) ng/L B-Natriuretic Peptide (<100) pg/mL Total Protein 7.9 (6.5-8.0) g/dL Albumin 4.0 (3.5-5.0) g/dL Urine Color YELLOW Urine Appearance HAZY Urine pH 5.5 (5.0-8.0) Ur Specific [place] 1.010 (1.005-1.025) Urine Protein NEG (NEG-TRACE) MG/DL Urine Glucose (UA) NEG (NEG) MG/DL Urine Ketones NEG (NEG) MG/DL Urine Blood NEG (NEG) Urine Nitrite NEG (NEG) Ur Leukocyte Esterase NEG (NEG) Urine RBC 0 (0) /HPF Urine WBC 0 (0-4) /HPF Ur Squamous Epith Cells TRACE /LPF Urine Bacteria NONE /LPF Hyaline Casts 1-4 /LPF Urine Mucus TRACE /LPF 03/20/22 03/20/22 Range/Units 17:34 17:34 WBC (4.8-10.8) X10*3/uL RBC (4.20-5.50) X10*6/uL Hgb (12.0-16.0) g/dl Hct (37.0-47.0) % MCV (80.0-98.0) fL MCH (27.0-33.0) pg MCHC (31.0-35.0) g/dl RDW (11.0-16.0) % Plt Count (160-400) X10*3/uL MPV (9.4-12.3) fL Immature Gran % (Auto) (0.0-0.4) % Neut % (Auto) (45-73) % Lymph % (Auto) (20-40) % [place] % (Auto) (2-11) % Eos % (Auto) (0-4) % Baso % (Auto) (0-2) % Lymph # (Auto) (1.2-4.9) X10*3/uL [place] # (Auto) (0.1-1.2) X10*3/uL Eos # (Auto) (0.0-0.4) X10*3/uL Baso # (Auto) (0.0-0.2) X10*3/uL Abs Immat Gran (auto) (0.00-0.03) X10*3/uL Absolute Neuts (auto) (2.0-8.3) x10*3/uL Absolute Nucleated RBC (0.0-0.012) X10*3/uL Nucleated RBC % (auto) (0.0-0.2) /100WBC Sodium (135-145) mmol/L Potassium (3.3-5.1) mmol/L Chloride (96-108) mmol/L Carbon Dioxide (22-29) mmol/L Anion Gap (12-20) BUN (9-16) mg/dL Creatinine (0.5-1.4) mg/dL Estim Creat Clear Calc Estimated GFR Random Glucose (60-115) mg/dL Calcium (8.4-10.2) mg/dL Magnesium (1.6-2.6) mg/dL Total Bilirubin (0.0-1.0) mg/dL Direct Bilirubin (0.0-0.5) mg/dL AST (5-31) U/L ALT (0-31) U/L Alkaline Phosphatase (39-117) U/L Troponin I High Sens < 3.5 (<3.5-17.0) ng/L B-Natriuretic Peptide 30 (<100) pg/mL Total Protein (6.5-8.0) g/dL Albumin (3.5-5.0) g/dL Urine Color Urine Appearance Urine pH (5.0-8.0) Ur Specific [place] (1.005-1.025) Urine Protein (NEG-TRACE) MG/DL Urine Glucose (UA) (NEG) MG/DL Urine Ketones (NEG) MG/DL Urine Blood (NEG) Urine Nitrite (NEG) Ur Leukocyte Esterase (NEG) Urine RBC (0) /HPF Urine WBC (0-4) /HPF Ur Squamous Epith Cells /LPF Urine Bacteria /LPF Hyaline Casts /LPF Urine Mucus /LPF Imaging Data CT scan - head: Attestation: I personally reviewed and interpreted this imaging study as follows: Radiologist's impression: [address] [address] [address] Scan Report Signed Patient: Marie Banks MR#: [id number] : 1960 Acct:[id number] Age/Sex: 62 / F ADM Date: 03/20/22 Loc: HO.ED Attending Dr: Ordering Physician: Shasta Mooney NP Date of Service: 03/20/22 Procedure(s): CT head/brain wo con Accession Number(s): [id number] cc: Shasta Mooney NP~ EXAMINATION: CT HEAD WITHOUT CONTRAST CLINICAL INFORMATION: Dizziness? COMPARISON: 12/03/2020 TECHNIQUE: Contiguous axial imaging was performed from the skull base to vertex without intravenous administration of contrast. This CT examination was performed using dose optimization techniques as appropriate, variously including the following: *Automated exposure control *Adjustment of mA and/or kV according to patient size (this includes techniques or standardized protocols for targeted exams where dose is matched to indication/reason for exam; i.e. extremities or head) *Use of iterative reconstruction technique DLP: 719 mGy-cm FINDINGS: There is no evidence of acute intracranial hemorrhage or territorial infarction. No abnormal mass effect or midline shift is seen. [place] to white matter differentiation is well preserved. No extra-axial fluid collections are identified. The ventricles are normal in size. There is no abnormal attenuation within the brain parenchyma. The osseous structures and soft tissues are normal. The mastoid air cells and visualized portions of the paranasal sinuses are well aerated. ? CT/CT head/brain wo con IMPRESSION: No acute intracranial pathology. renal left US: Attestation: I personally reviewed and interpreted this imaging study as follows: Radiologist's impression: XAMINATION: US renal LT CLINICAL INFORMATION: Reason for Exam flank pain COMPARISON: Pelvic ultrasound 03/03/2022. CT abdomen pelvis 12/02/2021. TECHNIQUE: Transabdominal grayscale and color ultrasonography of the left kidney. Only left kidney requested per ordering service per the technologist note. FINDINGS: Left kidney measures 8.1 cm x 5.4 cm x 5.9 cm. No hydronephrosis or perinephric fluid collections noted. A single rounded 1.2 cm anechoic focus with posterior acoustic enhancement and well-circumscribed margins is noted superiorly within the right kidney is consistent with a simple cyst requiring no additional imaging follow-up. This region demonstrates no color flow on color Doppler interrogation. US/US renal LT IMPRESSION: Normal sonographic appearance of the right kidney. No hydronephrosis. No right-sided nephrolithiasis identified.? Venous US: Attestation: I personally reviewed and interpreted this imaging study as follows: Radiologist's impression: [address] [address] Ultrasound Report Signed Patient: Marie Banks MR#: [id number] : 1960 Acct:[id number] Age/Sex: 62 / F ADM Date: 03/20/22 Loc: .ED Attending Dr: Ordering Physician: Shasta Mooney NP Date of Service: 03/20/22 Procedure(s): US venous duplex LE LT Accession Number(s): [id number] cc: Shasta Mooney NP~ EXAMINATION:? US VENOUS ULTRASOUND WITH DOPPLER LOWER EXTREMITY, LEFT CLINICAL INFORMATION:? Left leg pain and swelling. COMPARISON:? None TECHNIQUE: Ultrasound of the deep veins is performed from the hip to the calf with compression sonography and color and pulse Doppler assessment. Spectral analysis with color-flow imaging is performed. FINDINGS: There is normal venous compression and respiratory variation and augmented flow. The visualized common femoral vein, superficial femoral vein, profunda femoral vein, popliteal vein, and the trifurcation region shows no evidence of deep venous thrombosis. ? There is no significant popliteal fossa cyst. Of note, the distal femoral vein is suboptimally visualized. If the patient's symptoms persist, followup ultrasound in 5 days 7 days might be of value to exclude proximal propagation from a non-visualized calf vein. US/US venous duplex LE LT IMPRESSION: No DVT demonstrated in the left lower extremity. Dictated By: Elian Ac MD Signed By: <Electronically signed by Elian ECG Data Attestation: I personally reviewed and interpreted this ECG as follows: Interpretation: Normal sinus rhythm with a rate of 79, normal OR, normal QRS, normal QT Discharge Plan Discharge Clinical Impression: Back pain, Dizziness, Pain and swelling of left lower extremity Patient Disposition: Home, Self-Care Instructions: Dizziness (ED), Back Pain (ED), Leg Pain (ED) Additional Instructions: Your imaging, lab work, urine testing are all very reassuring today Please continue to follow-up with urology and gynecology a scheduled Continue your home medication Change positions slowly Make sure you are staying well hydrated with fluids at home Prescriptions: No Action metoprolol tartrate 50 mg tablet 50 mg PO BID 90 Days Qty: 180 3RF lisinopril 10 mg tablet 10 mg PO DAILY Qty: 28 5RF Multaq 400 mg tablet 400 mg PO BID 90 Days Qty: 180 1RF Rx Instructions: must administer with a meal/food Pradaxa 150 mg capsule 150 mg PO BID 90 Days Qty: 180 1RF Hold Instructions: Resume on 04/02/21. meclizine 25 mg tablet 1 tab PO QID PRN (Reason: dizziness) fluticasone propionate 50 mcg/actuation spray,suspension 1 spray intranasal BID PRN (Reason: Allergy Symptoms) multivitamin with folic acid [Daily-[place] (with folic acid)] 400 mcg tablet 0 tab PO folic acid 1 mg tablet 1 mg PO DAILY milnacipran 50 mg tablet 50 mg PO BID loratadine 10 mg tablet 10 mg PO DAILY furosemide 20 mg tablet 20 mg PO DAILY pravastatin 20 mg tablet 20 mg PO BEDTIME omeprazole 20 mg capsule,delayed release(DR/EC) 20 mg PO DAILY docusate sodium 100 mg capsule 100 mg PO BID ferrous sulfate 325 mg (65 mg iron) tablet 325 mg PO DAILY ascorbic acid (vitamin C) 250 mg tablet 250 mg PO DAILY calcium carbonate 600 mg calcium (1,500 mg) tablet 600 mg PO DAILY levothyroxine 75 mcg tablet 75 mcg PO DAILY multivitamin Tablet 1 tab PO DAILY alprazolam 0.5 mg tablet 0.5 mg PO TID PRN (Reason: Anxiety) fluticasone propionate 110 mcg/actuation HFA aerosol inhaler 2 puff inhalation BID Referrals: Mercedes Pandya MD [Primary Care Provider] - 1 week
[2022-03-20 16:05] LABS: Appearance Urine HAZY; Color Urine YELLOW; Glucose Urine UA NEG (NEG); Leukocyte Esterase Urine NEG (NEG); Nitrite Urine NEG (NEG); PH 5.5 (5.0-8.0); Urine Blood NEG (NEG); Urine Ketones NEG (NEG); Urine Protein NEG (NEG-TRACE)
[2022-03-20 16:23] LABS: Mucus Urine TRACE /LPF; RBC Urine 0 /HPF (0); Squamous Epithelial Cell Urine TRACE /LPF; WBC Urine 0 /HPF (0-4)
--- NOTE | 2022-03-20 16:31 | ECG_ITS ---
Test Reason : DIZZINESS Blood Pressure : / mmHG Vent. Rate : 079 BPM Atrial Rate : 079 BPM P-R Int : 170 ms QRS Dur : 096 ms QT Int : 434 ms P-R-T Axes : 063 -02 021 degrees QTc Int : 497 ms Normal sinus rhythm Low voltage QRS Nonspecific T wave abnormality Abnormal ECG When compared with ECG of 25-MAR-2021 21:50, QT has shortened Referred By: Shasta Mooney Electronically Signed By:Adam Saleem
--- NOTE | 2022-03-20 16:57 | PC.NURSE ---
pt to ultrasound, will draw labs upon her return
[2022-03-20 17:21] VITALS: BP 117/60; BP 121/67; PULSE 75; PULSE 84
[2022-03-20 17:22] VITALS: BP 115/75; PULSE 94
[2022-03-20 17:39] LABS: MANUAL DIFF FLAG NO
[2022-03-20 17:45] LABS: Basophils Percent Auto 0.2 % (0-2); Eosinophils Absolute Auto 0.1 X10*3/uL (0.0-0.4); Eosinophils Percent Auto 1.3 % (0-4); Hematocrit 39.2 % (37.0-47.0); Hemoglobin 13.2 g/dl (12.0-16.0); Imm Gran Abs Auto 0.03 X10*3/uL (0.00-0.03); Imm Gran Pct Auto 0.3 % (0.0-0.4); Lymphocytes Absolute Auto 2.9 X10*3/uL (1.2-4.9); Lymphocytes Percent Auto 26.8 % (20-40); Mean Corpuscular HGB Conc 33.7 g/dl (31.0-35.0); Mean Corpuscular Hemoglobin 25.9 pg (27.0-33.0); Mean Platelet Volume 9.4 fL (9.4-12.3); Monocytes Absolute Auto 0.6 X10*3/uL (0.1-1.2); Monocytes Percent Auto 5.6 % (2-11); Neutrophils Absolute Auto 7.2 x10*3/uL (2.0-8.3); Neutrophils Percent Auto 65.8 % (45-73); Platelet Count 402 X10*3/uL (160-400); Red Blood Count 5.09 X10*6/uL (4.20-5.50)
[2022-03-20 17:59] LABS: Alanine Aminotransferase 22 U/L (0-31); Alkaline Phosphatase 114 U/L (39-117); Anion Gap 12 (12-20); Aspartate Amino Transferase 27 U/L (5-31); Bilirubin Direct 0.2 mg/dL (0.0-0.5); Bilirubin Total 0.4 mg/dL (0.0-1.0); Blood Urea Nitrogen 10 mg/dL (9-16); Calcium 9.1 mg/dL (8.4-10.2); Carbon Dioxide 32 mmol/L (22-29); Chloride 102 mmol/L (96-108); Creatinine Clr Calc Pharmacy 80.3; Estimated Glomerular Filt Rate > 60; Glucose Random 90 mg/dL (60-115); Magnesium 2.1 mg/dL (1.6-2.6); Potassium 3.4 mmol/L (3.3-5.1); Sodium 143 mmol/L (135-145); Total Protein 7.9 g/dL (6.5-8.0)
[2022-03-20 18:02] LABS: Troponin-I High Sensitivity < 3.5 ng/L (<3.5-17.0)
[2022-03-20 18:03] LABS: B Type Natriuretic Peptide 30 pg/mL (<100)
== END 2022-03-20 18:46 | disposition home or self-care (01) ==
PROVIDERS: Nurse Practitioner Family; Emergency Provider Emergency Medicine; PCP Internal Medicine
DX: R33.9 Retention of urine, unspecified (principal); R60.0 Localized edema; M79.10 Myalgia, unspecified site; I10 Essential (primary) hypertension; R10.2 Pelvic and perineal pain; R06.02 Shortness of breath; M54.50 Low back pain, unspecified; R42 Dizziness and giddiness; Z79.899 Other long term (current) drug therapy
CPT/HCPCS: 36415; 70450; 76775; 80048; 80076; 81001; 83735; 83880; 84484; 85025; 93005; 93971; 99284

== ENCOUNTER 2022-03-29 12:41 | Outpatient (REF) | payer OTHER, SELFPAY | END 2022-03-29 12:42 | disposition home or self-care (01) | LOC: HO.LAB 12:41 | PROVIDERS: PCP Internal Medicine; Visit Provider Obstetrics & Gynecology | DX: R93.5 Abnormal findings on diagnostic imaging of other abdominal regions, including retroperitoneum (principal); N95.0 Postmenopausal bleeding | CPT/HCPCS: 58100; 88305; 99212 ==

== ENCOUNTER 2022-04-04 06:48 | Emergency (ER) | payer OTHER, SELFPAY ==
--- NOTE | ~2022-04-04 | XR_ITS ---
EXAMINATION: XR CHEST CLINICAL INFORMATION: Palpitations. COMPARISON: 12/03/2020 chest radiograph. TECHNIQUE: Frontal view of the chest was obtained. FINDINGS: No significant abnormality is noted involving the heart, lungs, mediastinum, bony thorax or soft tissues. XR/XR chest 1V IMPRESSION: No acute cardiopulmonary process.
--- NOTE | ~2022-04-04 | CT_ITS ---
EXAMINATION: CT HEAD WITHOUT CONTRAST CLINICAL INFORMATION: Dizziness. COMPARISON: 03/20/[address] scan. TECHNIQUE: Contiguous axial imaging was performed from the skull base to vertex without intravenous administration of contrast. Coronal and sagittal reformatted images were obtained. This CT examination was performed using dose optimization techniques as appropriate, variously including the following: *Automated exposure control *Adjustment of mA and/or kV according to patient size (this includes techniques or standardized protocols for targeted exams where dose is matched to indication/reason for exam; i.e. extremities or head) *Use of iterative reconstruction technique DLP: 654 mGy-cm FINDINGS: There is no evidence of acute intracranial hemorrhage or territorial infarction. No abnormal mass effect or midline shift is seen. Hubbard to white matter differentiation is well preserved. No extra-axial fluid collections are identified. The ventricles are normal in size. There is no abnormal attenuation within the brain parenchyma. The osseous structures and soft tissues are normal. The mastoid air cells and visualized portions of the paranasal sinuses are well aerated. CT/CT head/brain wo con IMPRESSION: No acute intracranial pathology.
[2022-04-04 06:53] VITALS: BP 110/68; PULSE 92; O2SAT 98
[2022-04-04 07:15] VITALS: BP 149/68; PULSE 75; RESP 16; TEMP 37.1; O2SAT 99; BMI 30.2
[2022-04-04 07:20] VITALS: PULSE 80
[2022-04-04 10:24] VITALS: BP 117/73; PULSE 78; RESP 18; O2SAT 95
[2022-04-04 10:25] LABS: MANUAL DIFF FLAG NO
[2022-04-04 10:26] LABS: Basophils Percent Auto 0.1 % (0-2); Eosinophils Absolute Auto 0.1 X10*3/uL (0.0-0.4); Eosinophils Percent Auto 1.5 % (0-4); Hemoglobin 12.8 g/dl (12.0-16.0); Imm Gran Abs Auto 0.03 X10*3/uL (0.00-0.03); Imm Gran Pct Auto 0.3 % (0.0-0.4); Lymphocytes Absolute Auto 2.4 X10*3/uL (1.2-4.9); Lymphocytes Percent Auto 26.1 % (20-40); Mean Corpuscular HGB Conc 32.8 g/dl (31.0-35.0); Mean Corpuscular Hemoglobin 25.5 pg (27.0-33.0); Mean Corpuscular Volume 77.8 fL (80.0-98.0); Mean Platelet Volume 9.4 fL (9.4-12.3); Monocytes Absolute Auto 0.5 X10*3/uL (0.1-1.2); Neutrophils Absolute Auto 6.1 x10*3/uL (2.0-8.3); Platelet Count 350 X10*3/uL (160-400); Red Blood Count 5.01 X10*6/uL (4.20-5.50); Red Cell Distribution Width 16.2 % (11.0-16.0); White Blood Count 9.1 X10*3/uL (4.8-10.8)
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
[2022-04-04 10:50] LABS: Troponin-I High Sensitivity < 3.5 ng/L (<3.5-17.0)
[2022-04-04 10:54] LABS: Anion Gap 13 (12-20); Blood Urea Nitrogen 14 mg/dL (9-16); Calcium 8.8 mg/dL (8.4-10.2); Carbon Dioxide 29 mmol/L (22-29); Chloride 102 mmol/L (96-108); Creatinine Clr Calc Pharmacy 64.9; Estimated Glomerular Filt Rate > 60; Glucose Random 120 mg/dL (60-115); Potassium 3.9 mmol/L (3.3-5.1); Sodium 140 mmol/L (135-145)
[2022-04-04] MEDS: Meclizine HCl 25 MG TABLET 50 MG PO (11:47)
[2022-04-04 12:09] LABS: Appearance Urine CLEAR; Color Urine YELLOW; Glucose Urine UA NEG (NEG); Leukocyte Esterase Urine NEG (NEG); Nitrite Urine NEG (NEG); PH 7.5 (5.0-8.0); Specific Gravity - Urine 1.015 (1.005-1.025); Urine Blood NEG (NEG); Urine Ketones NEG (NEG); Urine Protein TRACE MG/DL (NEG-TRACE)
[2022-04-04 13:43] LABS: Troponin-I High Sensitivity < 3.5 ng/L (<3.5-17.0)
--- NOTE | 2022-04-06 07:21 | ECG_ITS ---
Test Reason : CP Blood Pressure : / mmHG Vent. Rate : 079 BPM Atrial Rate : 079 BPM P-R Int : 170 ms QRS Dur : 094 ms QT Int : 438 ms P-R-T Axes : 064 -01 033 degrees QTc Int : 502 ms Normal sinus rhythm Low voltage QRS Cannot rule out Anterior infarct , age undetermined Abnormal ECG When compared with ECG of 20-MAR-2022 17:17, No significant change was found Referred By: Donte Mcdonnell Electronically Signed By:Adma Saleem
== END 2022-04-04 14:19 | disposition home or self-care (01) ==
PROVIDERS: Physician Assistant; Emergency Provider Emergency Medicine Emergency Medical Services; PCP Internal Medicine
DX: R07.89 Other chest pain (principal); R42 Dizziness and giddiness; R00.2 Palpitations; Z79.899 Other long term (current) drug therapy
CPT/HCPCS: 36415; 70450; 71045; 80048; 81003; 84484; 85025; 93005; 99284

== ENCOUNTER → 2022-04-19 15:05 | Outpatient (BNVA) | payer OTHER, SELFPAY | PROVIDERS: PCP Internal Medicine; Referring Provider Internal Medicine; Visit Provider Internal Medicine Cardiovascular Disease | DX: I48.0 Paroxysmal atrial fibrillation (principal); I10 Essential (primary) hypertension; Z79.01 Long term (current) use of anticoagulants; Z79.899 Other long term (current) drug therapy | CPT/HCPCS: 99212 ==

== ENCOUNTER 2022-05-10 11:34 | Outpatient (REF) | payer OTHER, SELFPAY ==
[2022-05-10 13:38] LABS: MANUAL DIFF FLAG NO
[2022-05-10 13:50] LABS: Basophils Percent Auto 0.2 % (0-2); Eosinophils Absolute Auto 0.2 X10*3/uL (0.0-0.4); Eosinophils Percent Auto 1.5 % (0-4); Hematocrit 41.1 % (37.0-47.0); Hemoglobin 13.3 g/dl (12.0-16.0); Imm Gran Abs Auto 0.04 X10*3/uL (0.00-0.03); Imm Gran Pct Auto 0.4 % (0.0-0.4); Lymphocytes Absolute Auto 2.5 X10*3/uL (1.2-4.9); Lymphocytes Percent Auto 25.3 % (20-40); Mean Corpuscular HGB Conc 32.4 g/dl (31.0-35.0); Mean Corpuscular Hemoglobin 25.6 pg (27.0-33.0); Mean Corpuscular Volume 79.2 fL (80.0-98.0); Mean Platelet Volume 10.3 fL (9.4-12.3); Monocytes Absolute Auto 0.5 X10*3/uL (0.1-1.2); Monocytes Percent Auto 5.1 % (2-11); Neutrophils Absolute Auto 6.7 x10*3/uL (2.0-8.3); Neutrophils Percent Auto 67.5 % (45-73); Platelet Count 408 X10*3/uL (160-400); Red Blood Count 5.19 X10*6/uL (4.20-5.50); Red Cell Distribution Width 16.5 % (11.0-16.0); White Blood Count 9.9 X10*3/uL (4.8-10.8)
[2022-05-10 14:01] LABS: Alanine Aminotransferase 26 U/L (0-31); Albumin Level 4.1 g/dL (3.5-5.0); Alkaline Phosphatase 124 U/L (39-117); Anion Gap 16 (12-20); Aspartate Amino Transferase 31 U/L (5-31); Bilirubin Total 0.4 mg/dL (0.0-1.0); Blood Urea Nitrogen 14 mg/dL (9-16); Calcium 9.1 mg/dL (8.4-10.2); Carbon Dioxide 27 mmol/L (22-29); Chloride 101 mmol/L (96-108); Cholesterol 198 mg/dL; Estimated Glomerular Filt Rate > 60; Glucose Random 98 mg/dL (60-115); HDL Cholesterol 50 mg/dL; LDL Cholesterol Calculated 107 mg/dl; Potassium 4.5 mmol/L (3.3-5.1); Sodium 139 mmol/L (135-145); Total Protein 7.5 g/dL (6.5-8.0); Triglycerides 208 mg/dL
[2022-05-10 14:23] LABS: Thyroid Stimulating Hormone 2.55 uIU/mL (0.32-4.0)
== END 2022-05-10 11:35 | disposition home or self-care (01) ==
LOC: HO.10HDL 11:34
PROVIDERS: Visit Provider Internal Medicine
DX: R31.9 Hematuria, unspecified (principal); I10 Essential (primary) hypertension; E03.8 Other specified hypothyroidism; D64.89 Other specified anemias
CPT/HCPCS: 36415; 80053; 80061; 84443; 85025

== ENCOUNTER → 2022-06-03 13:51 | Outpatient (BNVA) | payer OTHER, SELFPAY | PROVIDERS: PCP Internal Medicine; Visit Provider Urology | DX: N12 Tubulo-interstitial nephritis, not specified as acute or chronic (principal) | CPT/HCPCS: Q3014 ==

== ENCOUNTER 2022-06-17 16:09 | Outpatient (REF) | payer OTHER, SELFPAY ==
[2022-06-17 17:04] LABS: Appearance Urine Clear; Color Urine Yellow; Glucose Urine UA Negative (Negative); Leukocyte Esterase Urine Negative (Negative); Nitrite Urine Negative (Negative); PH 5.5 (5.0-9.0); Urine Blood Negative (Negative); Urine Ketones Negative (Negative); Urine Protein Negative (Neg-Trace)
[2022-06-17 17:09] LABS: Bacteria Urine None Seen (None Seen); Hyaline Casts Urine 0-2 /LPF (0-2); RBC Urine 0-2 /HPF (0-2); Squamous Epithelial Cell Urine 0-2 /HPF (0-2); WBC Urine 0-5 /HPF (0-5)
== END 2022-06-17 16:10 | disposition home or self-care (01) ==
LOC: HO.LAB 16:09
PROVIDERS: Visit Provider Urology
DX: R31.9 Hematuria, unspecified (principal)
CPT/HCPCS: 81001; 87086

== ENCOUNTER 2022-11-17 15:39 | Outpatient (REF) | payer OTHER, SELFPAY ==
[2022-11-17 15:54] LABS: MANUAL DIFF FLAG NO
[2022-11-17 16:21] LABS: Basophils Percent Auto 0.2 % (0-2); Eosinophils Absolute Auto 0.2 X10*3/uL (0.0-0.4); Hematocrit 41.8 % (37.0-47.0); Hemoglobin 13.5 g/dl (12.0-16.0); Imm Gran Abs Auto 0.07 X10*3/uL (0.00-0.03); Imm Gran Pct Auto 0.8 % (0.0-0.4); Lymphocytes Absolute Auto 3.3 X10*3/uL (1.2-4.9); Lymphocytes Percent Auto 36.4 % (20-40); Mean Corpuscular HGB Conc 32.3 g/dl (31.0-35.0); Mean Corpuscular Hemoglobin 25.5 pg (27.0-33.0); Mean Corpuscular Volume 78.9 fL (80.0-98.0); Mean Platelet Volume 10.1 fL (9.4-12.3); Monocytes Absolute Auto 0.5 X10*3/uL (0.1-1.2); Monocytes Percent Auto 5.5 % (2-11); Neutrophils Absolute Auto 4.9 x10*3/uL (2.0-8.3); Neutrophils Percent Auto 55.1 % (45-73); Platelet Count 379 X10*3/uL (160-400)
[2022-11-17 16:59] LABS: Alanine Aminotransferase 27 U/L (0-31); Albumin Level 4.1 g/dL (3.5-5.0); Alkaline Phosphatase 115 U/L (39-117); Anion Gap 16 (12-20); Aspartate Amino Transferase 33 U/L (5-31); Bilirubin Total 0.5 mg/dL (0.0-1.0); Blood Urea Nitrogen 11 mg/dL (9-16); Calcium 9.1 mg/dL (8.4-10.2); Carbon Dioxide 28 mmol/L (22-29); Chloride 104 mmol/L (96-108); Cholesterol 191 mg/dL; Estimated Glomerular Filt Rate > 60; Glucose Random 97 mg/dL (60-115); HDL Cholesterol 58 mg/dL; LDL Cholesterol Calculated 107 mg/dl; Potassium 4.5 mmol/L (3.3-5.1); Sodium 143 mmol/L (135-145); Total Protein 7.2 g/dL (6.5-8.0); Triglycerides 131 mg/dL
[2022-11-17 17:13] LABS: Thyroid Stimulating Hormone 2.14 uIU/mL (0.32-4.0)
== END 2022-11-17 15:40 | disposition home or self-care (01) ==
LOC: HO.LAB 15:39
PROVIDERS: PCP Internal Medicine; Visit Provider Internal Medicine
DX: N39.0 Urinary tract infection, site not specified (principal); E03.8 Other specified hypothyroidism; F32.A Depression, unspecified; I51.81 Takotsubo syndrome; M06.9 Rheumatoid arthritis, unspecified
CPT/HCPCS: 36415; 80053; 80061; 84443; 85025; 87086; 87147

== ENCOUNTER → 2022-12-29 12:57 | Outpatient (BNVA) | payer OTHER, SELFPAY | PROVIDERS: PCP Internal Medicine; Referring Provider Internal Medicine; Visit Provider Internal Medicine Cardiovascular Disease | DX: I48.0 Paroxysmal atrial fibrillation (principal); I42.8 Other cardiomyopathies | CPT/HCPCS: 93005; 99212 ==

== ENCOUNTER 2023-02-27 13:48 | Emergency (ER) | payer OTHER, SELFPAY ==
--- NOTE | ~2023-02-27 | CT_ITS ---
EXAMINATION: CT ABDOMEN AND PELVIS WITHOUT CONTRAST CLINICAL INFORMATION: Bilateral flank pain and hematuria. COMPARISON: Abdominal ultrasound dated 12/20/2021. TECHNIQUE: Multidetector volumetric imaging was performed from the superior aspect of the liver through the pubic symphysis. Sagittal and coronal reformatted images were obtained on the technologist's workstation. This CT examination was performed using dose optimization techniques as appropriate, variously including the following: *Automated exposure control *Adjustment of mA and/or kV according to patient size (this includes techniques or standardized protocols for targeted exams where dose is matched to indication/reason for exam; i.e. extremities or head) *Use of iterative reconstruction technique DLP: 1161 mGy-cm FINDINGS: LUNG BASES: There is mild anterior bibasilar linear scar/subsegmental atelectasis. LIVER, GALLBLADDER, AND BILIARY TREE: The liver is normal in size, shape, and attenuation. No focal hepatic lesion or biliary ductal dilatation is present. The gallbladder is surgically absent. PANCREAS: Unremarkable. SPLEEN: Unremarkable. ADRENAL GLANDS: Unremarkable. KIDNEYS AND URETERS: The kidneys are normal in size, shape, and attenuation. No hydronephrosis, hydroureter, or calculi seen. No perinephric stranding. BLADDER: Decompressed and otherwise unremarkable. GASTROINTESTINAL TRACT: The small and large bowel are unremarkable. The appendix is unremarkable. ABDOMINAL WALL: No significant hernia is appreciated. LYMPH NODES: Normal. VASCULAR: There is mild aortoiliac atherosclerotic calcification. No abdominal aortic aneurysm is seen. PELVIC VISCERA: There is uterine fibroid disease. Ill-defined endometrial stripe thickening is suspected. These findings are consistent with ultrasound findings dated 03/22/2020. The bilateral adnexa are unremarkable. OSSEOUS STRUCTURES: There are slight T10-T12 anterior wedge compression fractures. There is multi-level marked lower thoracic degenerative disc disease, with vacuum disc phenomenon. There is multi-level thoracolumbar spondylosis. No acute or aggressive osseous abnormality is seen. CT/CT abdomen pelvis wo IV con IMPRESSION: 1. There is an abnormal appearance of the uterus, with fibroid disease and endometrial stripe thickening suspected. Consider repeat pelvic ultrasound examination. Gynecology evaluation may be indicated. 2. No urinary mass, calculus or obstruction is noted. The urinary bladder is significantly contracted and poorly evaluated. 3. There are multi-level degenerative changes of the thoracolumbar spine. No aggressive osseous lesion is seen. Fleischner guidelines were followed.
[2023-02-27 13:52] VITALS: BP 128/83; PULSE 84; RESP 19; TEMP 36.6; O2SAT 99; BMI 50.4
[2023-02-27 14:34] LABS: MANUAL DIFF FLAG NO
[2023-02-27 14:37] LABS: Basophils Percent Auto 0.3 % (0-2); Eosinophils Absolute Auto 0.1 X10*3/uL (0.0-0.4); Eosinophils Percent Auto 1.4 % (0-4); Hematocrit 41.2 % (37.0-47.0); Hemoglobin 13.5 g/dl (12.0-16.0); Imm Gran Abs Auto 0.04 X10*3/uL (0.00-0.03); Imm Gran Pct Auto 0.4 % (0.0-0.4); Lymphocytes Absolute Auto 2.6 X10*3/uL (1.2-4.9); Lymphocytes Percent Auto 25.8 % (20-40); Mean Corpuscular HGB Conc 32.8 g/dl (31.0-35.0); Mean Corpuscular Hemoglobin 25.5 pg (27.0-33.0); Mean Corpuscular Volume 77.9 fL (80.0-98.0); Monocytes Absolute Auto 0.6 X10*3/uL (0.1-1.2); Monocytes Percent Auto 6.1 % (2-11); Neutrophils Absolute Auto 6.5 x10*3/uL (2.0-8.3); Platelet Count 372 X10*3/uL (160-400); Red Blood Count 5.29 X10*6/uL (4.20-5.50); Red Cell Distribution Width 15.9 % (11.0-16.0); White Blood Count 9.9 X10*3/uL (4.8-10.8)
[2023-02-27 14:44] LABS: Partial Thromboplastin Time 44.7 SEC (26.0-36.4)
[2023-02-27 14:58] LABS: Alanine Aminotransferase 23 U/L (0-31); Albumin Level 4.1 g/dL (3.5-5.0); Alkaline Phosphatase 124 U/L (39-117); Anion Gap 15 (12-20); Aspartate Amino Transferase 28 U/L (5-31); Bilirubin Direct 0.2 mg/dL (0.0-0.5); Bilirubin Total 0.7 mg/dL (0.0-1.0); Blood Urea Nitrogen 16 mg/dL (9-16); Calcium 9.5 mg/dL (8.4-10.2); Carbon Dioxide 32 mmol/L (22-29); Chloride 101 mmol/L (96-108); Creatinine Clr Calc Pharmacy 71.3; Estimated Glomerular Filt Rate 55; Glucose Random 113 mg/dL (60-115); Lipase 17 U/L (8-78); Potassium 3.8 mmol/L (3.3-5.1); Sodium 144 mmol/L (135-145); Total Protein 7.6 g/dL (6.5-8.0)
[2023-02-27 17:53] LABS: Appearance Urine Clear; Color Urine Yellow; Glucose Urine UA Negative (Negative); Leukocyte Esterase Urine Trace (Negative); Nitrite Urine Negative (Negative); UMIC TRIGGER UACC YES; Urine Blood Moderate (2+) (Negative); Urine Ketones Negative (Negative); Urine Protein Negative (Neg-Trace)
[2023-02-27 17:58] LABS: Bacteria Urine None Seen (None Seen); Hyaline Casts Urine 0-2 /LPF (0-2); RBC Urine >20 /HPF (0-2); Squamous Epithelial Cell Urine 0-2 /HPF (0-2); WBC Urine 0-5 /HPF (0-5)
--- NOTE | 2023-02-27 18:01 | ED.GENADULT ---
HPI - General Adult General Chief complaint: Abdominal Pain Stated complaint: kidney issues Time Seen by Provider: 02/27/23 17:30 Source: patient, RN notes reviewed and old records reviewed Mode of arrival: ambulatory History of Present Illness HPI narrative: 62-year-old female presents for evaluation of blood in her urine and bilateral flank pain. Patient reports her symptoms started a week ago. She reports that she was prescribed cephalexin on Tuesday which she is still taking it she had a 7 day course She reports that she had a pelvic examination by her primary provider told her that everything looked normal and her blood was coming from a urine Patient reports a history of kidney stones pain She is taking Pradaxa for atrial fibrillation Currently her pain is a 06/12 No other complaints or concerns at this time. Related Data Home Medications Medication Instructions Recorded Confirmed alprazolam 0.5 mg tablet 0.5 mg PO TID PRN Anxiety 08/11/20 04/19/22 ascorbic acid (vitamin C) 250 mg 250 mg PO DAILY 08/11/20 04/19/22 tablet calcium carbonate 600 mg calcium 600 mg PO DAILY 08/11/20 04/19/22 (1,500 mg) tablet docusate sodium 100 mg capsule 100 mg PO BID 08/11/20 04/19/22 ferrous sulfate 325 mg (65 mg 325 mg PO DAILY 08/11/20 04/19/22 iron) tablet fluticasone propionate 110 2 puff inhalation BID 08/11/20 04/19/22 mcg/actuation HFA aerosol inhaler folic acid 1 mg tablet 1 mg PO DAILY 08/11/20 04/19/22 furosemide 20 mg tablet 20 mg PO DAILY 08/11/20 04/19/22 levothyroxine 75 mcg tablet 75 mcg PO DAILY 08/11/20 04/19/22 loratadine 10 mg tablet 10 mg PO DAILY 08/11/20 04/19/22 milnacipran 50 mg tablet 50 mg PO BID 08/11/20 04/19/22 omeprazole 20 mg capsule,delayed 20 mg PO DAILY 08/11/20 04/19/22 release pravastatin 20 mg tablet 20 mg PO BEDTIME 08/11/20 04/19/22 fluticasone propionate 50 1 spray intranasal BID PRN Allergy 03/25/21 04/19/22 mcg/actuation nasal Symptoms spray,suspension multivitamin with folic acid 400 0 tab PO 05/18/21 04/19/22 mcg tablet (Daily-Cl[place] (with folic acid)) Previous Rx's Medication Instructions Recorded metoprolol tartrate 50 mg tablet 50 mg PO BID 90 days #180 tabs 09/02/20 meclizine 25 mg tablet 25 mg PO QID PRN dizziness #20 tabs 04/04/22 dronedarone 400 mg tablet (Multaq) 400 mg PO BID 90 days #180 tabs 12/09/22 lisinopril 10 mg tablet 10 mg PO DAILY 90 days #90 tabs 12/09/22 Pradaxa 150 mg capsule (dabigatran 150 mg PO BID 90 days #180 caps 01/10/23 etexilate) Allergies Allergy/AdvReac Type Severity Reaction Status Date / Time duloxetine [From CYMBALTA] Allergy Severe Anaphylaxis Verified 02/27/23 18:19 Penicillins Allergy Severe ANAPHYLAXIS Verified 02/27/23 18:19 shellfish derived Allergy Severe Numbness, Verified 10/29/22 13:09 swelling mouth STEROIDS Allergy Severe UNKNOWN Verified 07/13/22 10:24 cortisone Allergy Unknown Unknown Verified 10/29/22 13:09 hydromorphone [From Dilaudid] Allergy Itching Verified 02/27/23 18:18 morphine AdvReac Hallucinati Verified 02/27/23 18:18 ons Crustaceans Allergy Severe RESP Uncoded 06/03/22 11:23 PROBLEMS Review of Systems Constitutional: Constitutional: Reports as per HPI, Denies chills, Denies fatigue, Denies fever(s) and Denies headache(s) ENT: Denies headache(s) Cardiovascular: Cardiovascular: Denies chest pain and Denies dyspnea Respiratory: Respiratory: Denies cough and Denies dyspnea Gastrointestinal: Gastrointestinal: Denies abdominal pain, Denies constipation and Denies vomiting Genitourinary: Genitourinary: Denies dysuria Comments: reports blood in urine Musculoskeletal: Musculoskeletal: Reports back pain Neurologic: Denies headache(s) and Denies focal weakness Endocrine: Endocrine: Denies fatigue [facility] Past Medical History Medical History Arthritis Back pain, chronic Bronchitis Carpal tunnel syndrome Chronic back pain Edema Elevated partial thromboplastin time (PTT) Fibromyalgia Glaucoma Hematuria Hematuria HTN (hypertension) Hypothyroid Lupus Migraine Morbid obesity Paroxysmal atrial fibrillation Pulmonary embolism Raynauds disease SVT (supraventricular tachycardia) Takotsubo cardiomyopathy Tendinitis Thyroid nodule Surgical History History of total bilateral knee replacement (TKR) History of tubal ligation Hx of cholecystectomy Hx of tonsillectomy Family History Family History Father No problems noted. Mother CVD (cardiovascular disease) Brother Stomach cancer Social History Social History Household Members: Family Housing: Apartment Do you presently have visiting nurse or other home services: Yes (son helps with bathing) Alcohol intake: never Patient Tobacco Use Status: Never used Tobacco Smoked in Last 30 Days: No Use of substances other than those prescribed or required for medical reasons: No Advance Directives: No Advance Directives Information Provided: No Advance Directives Date on File: 03/25/21 Patient : No service: No Current occupational status: disabled Current occupation: right handed Physical Exam ED Vital Signs: Vital Signs - 24 hr 02/27/23 13:52 02/27/23 18:37 02/27/23 20:46 Temperature 97.9 F 97.8 F 97.6 F Pulse Rate 84 75 72 Respiratory Rate 19 16 18 Blood Pressure 128/83 138/69 148/83 H Pulse Oximetry 99 98 100 Oxygen Delivery Method Room Air Room Air Room Air BMI result Body Mass Index 50.4 Const General: healthy appearing, comfortable, no acute distress, alert and awake Nutritional Appearance: well nourished Orientation/consciousness: patient oriented x3 HENMT Head: Yes normocephalic and Yes atraumatic Eyes Eyelids: Yes eyelids normal Conjunctivae: conjunctivae normal Sclerae: sclerae normal Corneas: corneas normal Pupils: Equal, round and reactive pupils present EOM: EOMs intact bilaterally Neck Neck: Yes full ROM Resp Effort & Inspection: normal respiratory effort, able to speak in complete sentences, no audible wheezes and not labored Auscultation: clear to auscultation bilaterally Cardio Rate: regular rate Rhythm: regular rhythm GI Inspection: No distended and Yes obesity Palpation (GI): Soft to palpation, not firm, nontender, no guarding and not rigid Back/Spine/Pelvis Other: The patient has mild lumbar paraspinous muscle tenderness without CVA tenderness. No vertebral tenderness Skin General skin exam: no rashes or lesions noted and elasticity normal Neuro General: patient oriented x3 Cranial nerves: Yes Equal, round and reactive pupils present and Yes Bilaterally intact EOM present Cognition (Neuro): normal cognition Extrem Other: Moving all extremities well without any obvious deformities Course Reevaluation(s) Reevaluation #1: Discussed all the results with the patient including her abnormal CT scan with abnormal uterus. This is concerning for endometrial cancer which was discussed with the patient. 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 The patient will be referred to the services of Dr. 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 Patient's hemoglobin hematocrit are within normal limits, her vital signs are stable. Urine had some blood which is likely from the uterus but without evidence of infection. No evidence of obstructive uropathy on CT scan Medications Administered Discontinued Medications Generic Name Dose Route Start Last Admin Trade Name Freq PRN Reason Stop Dose Admin Sodium Chloride 1,000 mls @ 999 mls/hr 02/27/23 18:00 02/27/23 19:43 Ns IV 02/27/23 19:00 Infused .Q1H1M FRANDY Infusion Oxycodone HCl 5 mg 02/27/23 18:16 02/27/23 18:28 Oxycodone Hcl Immed Release 5 Mg Tablet PO 02/27/23 18:17 5 mg ONCE ONE Administration Medical Decision Making Medical Decision Making [facility] Narrative: 8-year-old female presents for evaluation of hematuria and flank pain. This is consistent obstructive uropathy. Will get a CT scan of her abdomen and pelvis. Her kidney function is within normal limits. UA is pending at this time. Given the patient is on Pradaxa will hold Toradol and treat her with morphine, IV fluids Differential Diagnosis Obstructive uropathy Hematuria Bladder mass UTI Pyelonephritis Lab Data 02/27/23 14:26 02/27/23 14:26 Labs: Lab Results 02/27/23 02/27/23 02/27/23 Range/Units 14:26 14:26 14:26 WBC 9.9 (4.8-10.8) X10*3/uL RBC 5.29 (4.20-5.50) X10*6/uL Hgb 13.5 (12.0-16.0) g/dl Hct 41.2 (37.0-47.0) % MCV 77.9 L (80.0-98.0) fL MCH 25.5 L (27.0-33.0) pg MCHC 32.8 (31.0-35.0) g/dl RDW 15.9 (11.0-16.0) % Plt Count 372 (160-400) X10*3/uL MPV 10.0 (9.4-12.3) fL Immature Gran % (Auto) 0.4 (0.0-0.4) % Neut % (Auto) 66.0 (45-73) % Lymph % (Auto) 25.8 (20-40) % [place] % (Auto) 6.1 (2-11) % Eos % (Auto) 1.4 (0-4) % Baso % (Auto) 0.3 (0-2) % Lymph # (Auto) 2.6 (1.2-4.9) X10*3/uL [place] # (Auto) 0.6 (0.1-1.2) X10*3/uL Eos # (Auto) 0.1 (0.0-0.4) X10*3/uL Baso # (Auto) 0.0 (0.0-0.2) X10*3/uL Abs Immat Gran (auto) 0.04 H (0.00-0.03) X10*3/uL Absolute Neuts (auto) 6.5 (2.0-8.3) x10*3/uL Absolute Nucleated RBC 0.000 (0.0-0.012) X10*3/uL Nucleated RBC % (auto) 0.0 (0.0-0.2) /100WBC APTT 44.7 H (26.0-36.4) SEC Sodium 144 (135-145) mmol/L Potassium 3.8 (3.3-5.1) mmol/L Chloride 101 (96-108) mmol/L Carbon Dioxide 32 H (22-29) mmol/L Anion Gap 15 (12-20) BUN 16 (9-16) mg/dL Creatinine 1.02 (0.5-1.4) mg/dL Estim Creat Clear Calc 71.3 Estimated GFR 55 Random Glucose 113 (60-115) mg/dL Calcium 9.5 (8.4-10.2) mg/dL Total Bilirubin 0.7 (0.0-1.0) mg/dL Direct Bilirubin 0.2 (0.0-0.5) mg/dL AST 28 (5-31) U/L ALT 23 (0-31) U/L Alkaline Phosphatase 124 H (39-117) U/L Total Protein 7.6 (6.5-8.0) g/dL Albumin 4.1 (3.5-5.0) g/dL Lipase 17 (8-78) U/L Urine Color Urine Appearance Urine pH (5.0-9.0) Ur Specific Veteran (1.005-1.025) Urine Protein (Neg-Trace) mg/dL Urine Glucose (UA) (Negative) mg/dL Urine Ketones (Negative) mg/dL Urine Blood (Negative) Urine Nitrite (Negative) Ur Leukocyte Esterase (Negative) Urine RBC (0-2) /HPF Urine WBC (0-5) /HPF Ur Squamous Epith Cells (0-2) /HPF Urine Bacteria (None Seen) Hyaline Casts (0-2) /LPF 02/27/23 Range/Units 17:41 WBC (4.8-10.8) X10*3/uL RBC (4.20-5.50) X10*6/uL Hgb (12.0-16.0) g/dl Hct (37.0-47.0) % MCV (80.0-98.0) fL MCH (27.0-33.0) pg MCHC (31.0-35.0) g/dl RDW (11.0-16.0) % Plt Count (160-400) X10*3/uL MPV (9.4-12.3) fL Immature Gran % (Auto) (0.0-0.4) % Neut % (Auto) (45-73) % Lymph % (Auto) (20-40) % [place] % (Auto) (2-11) % Eos % (Auto) (0-4) % Baso % (Auto) (0-2) % Lymph # (Auto) (1.2-4.9) X10*3/uL [place] # (Auto) (0.1-1.2) X10*3/uL Eos # (Auto) (0.0-0.4) X10*3/uL Baso # (Auto) (0.0-0.2) X10*3/uL Abs Immat Gran (auto) (0.00-0.03) X10*3/uL Absolute Neuts (auto) (2.0-8.3) x10*3/uL Absolute Nucleated RBC (0.0-0.012) X10*3/uL Nucleated RBC % (auto) (0.0-0.2) /100WBC APTT (26.0-36.4) SEC Sodium (135-145) mmol/L Potassium (3.3-5.1) mmol/L Chloride (96-108) mmol/L Carbon Dioxide (22-29) mmol/L Anion Gap (12-20) BUN (9-16) mg/dL Creatinine (0.5-1.4) mg/dL Estim Creat Clear Calc Estimated GFR Random Glucose (60-115) mg/dL Calcium (8.4-10.2) mg/dL Total Bilirubin (0.0-1.0) mg/dL Direct Bilirubin (0.0-0.5) mg/dL AST (5-31) U/L ALT (0-31) U/L Alkaline Phosphatase (39-117) U/L Total Protein (6.5-8.0) g/dL Albumin (3.5-5.0) g/dL Lipase (8-78) U/L Urine Color Yellow Urine Appearance Clear Urine pH 5.0 (5.0-9.0) Ur Specific Veteran 1.010 (1.005-1.025) Urine Protein Negative (Neg-Trace) mg/dL Urine Glucose (UA) Negative (Negative) mg/dL Urine Ketones Negative (Negative) mg/dL Urine Blood Moderate (2+) H (Negative) Urine Nitrite Negative (Negative) Ur Leukocyte Esterase Trace H (Negative) Urine RBC >20 H (0-2) /HPF Urine WBC 0-5 (0-5) /HPF Ur Squamous Epith Cells 0-2 (0-2) /HPF Urine Bacteria None Seen (None Seen) Hyaline Casts 0-2 (0-2) /LPF Discharge Plan Discharge Clinical Impression: Abnormal vaginal bleeding in postmenopausal patient Patient Disposition: Home, Self-Care Instructions: Dysfunctional Uterine Bleeding (ED) Additional Instructions: Your CT scan did not show any kidney stones or if she your kidneys. Your urine sample had blood but no evidence of infection. This CT scan was most concerning for an abnormal uterus You had an abnormal pelvic ultrasound 1 year ago Follow-up with Dr. Ruthie KUHN Prescriptions: No Action metoprolol tartrate 50 mg tablet 50 mg PO BID 90 Days Qty: 180 3RF lisinopril 10 mg tablet 10 mg PO DAILY 90 Days Qty: 90 1RF Multaq 400 mg tablet 400 mg PO BID 90 Days Qty: 180 1RF Pradaxa 150 mg capsule 150 mg PO BID 90 Days Qty: 180 1RF Hold Instructions: Resume on 04/02/21. fluticasone propionate 50 mcg/actuation spray,suspension 1 spray intranasal BID PRN (Reason: Allergy Symptoms) meclizine 25 mg tablet 25 mg PO QID PRN (Reason: dizziness) Qty: 20 0RF multivitamin with folic acid [Daily-[place] (with folic acid)] 400 mcg tablet 0 tab PO folic acid 1 mg tablet 1 mg PO DAILY milnacipran 50 mg tablet 50 mg PO BID loratadine 10 mg tablet 10 mg PO DAILY furosemide 20 mg tablet 20 mg PO DAILY pravastatin 20 mg tablet 20 mg PO BEDTIME omeprazole 20 mg capsule,delayed release(DR/EC) 20 mg PO DAILY docusate sodium 100 mg capsule 100 mg PO BID ferrous sulfate 325 mg (65 mg iron) tablet 325 mg PO DAILY ascorbic acid (vitamin C) 250 mg tablet 250 mg PO DAILY calcium carbonate 600 mg calcium (1,500 mg) tablet 600 mg PO DAILY levothyroxine 75 mcg tablet 75 mcg PO DAILY alprazolam 0.5 mg tablet 0.5 mg PO TID PRN (Reason: Anxiety) fluticasone propionate 110 mcg/actuation HFA aerosol inhaler 2 puff inhalation BID Referrals: Armani Hendricks MD [Physician] -
[2023-02-27] MEDS: oxyCODONE HCl Immed Release 5 MG TABLET PO (18:28)
[2023-02-27] MEDS: 0.9 % Sodium Chloride 1,000 ML 999 ML IV (18:30)
[2023-02-27 18:37] VITALS: BP 138/69; PULSE 75; RESP 16; TEMP 36.6; O2SAT 98
--- NOTE | 2023-02-27 19:43 | PC.NURSE ---
I assumed care of the pt at 1900. Pt is resting in bed at this time. Pt stated she has pain that is chronic, and struggles to identify new pain. pt is A&Ox4, GCS 15, with warm, dry skin. Pt has a working IV in the right AC.
[2023-02-27 20:46] VITALS: BP 148/83; PULSE 72; RESP 18; TEMP 36.4; O2SAT 100
== END 2023-02-27 21:19 | disposition home or self-care (01) ==
PROVIDERS: Emergency Provider Emergency Medicine; PCP Internal Medicine
DX: N95.0 Postmenopausal bleeding (principal); N93.9 Abnormal uterine and vaginal bleeding, unspecified; R10.9 Unspecified abdominal pain; I48.91 Unspecified atrial fibrillation; Z79.899 Other long term (current) drug therapy; Z79.01 Long term (current) use of anticoagulants
CPT/HCPCS: 36415; 74176; 80048; 80076; 81001; 83690; 85025; 85730; 96361; 96374; 99284; 99285

== ENCOUNTER 2023-03-02 17:40 | Emergency (ER) | payer OTHER, SELFPAY ==
--- NOTE | ~2023-03-02 | US_ITS ---
EXAMINATION: US PELVIS CLINICAL INFORMATION: Vaginal bleeding for one week COMPARISON: 03/03/2022 TECHNIQUE: Ultrasound of the pelvis is performed using both transabdominal and transvaginal transducers along with Doppler. Transvaginal imaging is performed due to inadequate visualization transabdominally. FINDINGS: The uterus is measuring 8.1 x 5.3 x 6.6 cm. Anteverted. Anteflexed. The endometrial thickness is measuring 3.9 cm characterized by mixed echogenicity with internal vascularity. Overall appearances similar to 03/03/2022 The right ovary is 2.4 x 1.4 x 1.8 cm. Volume 3 mL. The left ovary is not seen. US/US pelvic and transvaginal IMPRESSION: This exam is abnormal. The endometrial thickness is markedly increased and characterized by mixed echogenicity with internal vascularity. This may represent hyperplasia or polyp formation or carcinoma. Gynecologic consultation is recommended
[2023-03-02 18:08] VITALS: BP 160/69; PULSE 91; RESP 20; TEMP 36.8; O2SAT 97; BMI 49.1
--- NOTE | 2023-03-02 18:09 | ED.GENADULT ---
HPI - General Adult General Chief complaint: Vaginal Bleeding Stated complaint: Vaginal Bleeding Time Seen by Provider: 03/02/23 18:47 Source: patient Mode of arrival: ambulatory History of Present Illness HPI narrative: 63-year-old female with multiple medical comorbidities to include blood thinner use presents with complaints of vaginal bleeding since 02/27, she has been seen by her primary care provider and patient states that she was evaluated that that time and that her primary care provider evaluated by pelvic exam and determined that she had a urinary tract infection. Patient states that she proceeded with the antibiotics but then has continued to have significant bleeding as though she is on her period. Related Data Home Medications Medication Instructions Recorded Confirmed alprazolam 0.5 mg tablet 0.5 mg PO TID PRN Anxiety 08/11/20 04/19/22 ascorbic acid (vitamin C) 250 mg 250 mg PO DAILY 08/11/20 04/19/22 tablet calcium carbonate 600 mg calcium 600 mg PO DAILY 08/11/20 04/19/22 (1,500 mg) tablet docusate sodium 100 mg capsule 100 mg PO BID 08/11/20 04/19/22 ferrous sulfate 325 mg (65 mg 325 mg PO DAILY 08/11/20 04/19/22 iron) tablet fluticasone propionate 110 2 puff inhalation BID 08/11/20 04/19/22 mcg/actuation HFA aerosol inhaler folic acid 1 mg tablet 1 mg PO DAILY 08/11/20 04/19/22 furosemide 20 mg tablet 20 mg PO DAILY 08/11/20 04/19/22 levothyroxine 75 mcg tablet 75 mcg PO DAILY 08/11/20 04/19/22 loratadine 10 mg tablet 10 mg PO DAILY 08/11/20 04/19/22 milnacipran 50 mg tablet 50 mg PO BID 08/11/20 04/19/22 omeprazole 20 mg capsule,delayed 20 mg PO DAILY 08/11/20 04/19/22 release pravastatin 20 mg tablet 20 mg PO BEDTIME 08/11/20 04/19/22 fluticasone propionate 50 1 spray intranasal BID PRN Allergy 03/25/21 04/19/22 mcg/actuation nasal Symptoms spray,suspension multivitamin with folic acid 400 0 tab PO 05/18/21 04/19/22 mcg tablet (Daily-Clayton (with folic acid)) Previous Rx's Medication Instructions Recorded metoprolol tartrate 50 mg tablet 50 mg PO BID 90 days #180 tabs 09/02/20 meclizine 25 mg tablet 25 mg PO QID PRN dizziness #20 tabs 04/04/22 dronedarone 400 mg tablet (Multaq) 400 mg PO BID 90 days #180 tabs 12/09/22 lisinopril 10 mg tablet 10 mg PO DAILY 90 days #90 tabs 12/09/22 Pradaxa 150 mg capsule (dabigatran 150 mg PO BID 90 days #180 caps 01/10/23 etexilate) Allergies Allergy/AdvReac Type Severity Reaction Status Date / Time duloxetine [From CYMBALTA] Allergy Severe Anaphylaxis Verified 02/27/23 18:19 Penicillins Allergy Severe ANAPHYLAXIS Verified 02/27/23 18:19 shellfish derived Allergy Severe Numbness, Verified 10/29/22 13:09 swelling mouth STEROIDS Allergy Severe UNKNOWN Verified 07/13/22 10:24 cortisone Allergy Unknown Unknown Verified 10/29/22 13:09 hydromorphone [From Dilaudid] Allergy Itching Verified 02/27/23 18:18 morphine AdvReac Hallucinati Verified 02/27/23 18:18 ons Crustaceans Allergy Severe RESP Uncoded 06/03/22 11:23 PROBLEMS Review of Systems Review of Systems: Pertinent positives and negatives as stated in HPI [facility] Past Medical History Source: nursing notes reviewed Medical History Arthritis Back pain, chronic Bronchitis Carpal tunnel syndrome Chronic back pain Edema Elevated partial thromboplastin time (PTT) Fibromyalgia Glaucoma Hematuria Hematuria HTN (hypertension) Hypothyroid Lupus Migraine Morbid obesity Paroxysmal atrial fibrillation Pulmonary embolism Raynauds disease SVT (supraventricular tachycardia) Takotsubo cardiomyopathy Tendinitis Thyroid nodule Surgical History History of total bilateral knee replacement (TKR) History of tubal ligation Hx of cholecystectomy Hx of tonsillectomy Family History Family History Father No problems noted. Mother CVD (cardiovascular disease) Brother Stomach cancer Social History Social History Household Members: Family Housing: Apartment Do you presently have visiting nurse or other home services: Yes (son helps with bathing) Alcohol intake: never Patient Tobacco Use Status: Never used Tobacco Smoked in Last 30 Days: No Use of substances other than those prescribed or required for medical reasons: No Advance Directives: No Advance Directives Information Provided: No Advance Directives Date on File: 03/25/21 service: No Current occupational status: disabled Current occupation: right handed Physical Exam ED Vital Signs: Vital Signs - 24 hr 03/02/23 18:08 03/02/23 18:57 03/02/23 20:48 Temperature 98.3 F 98.4 F Pulse Rate 91 87 83 Respiratory Rate 20 16 20 Blood Pressure 160/69 H 154/91 H 130/84 Pulse Oximetry 97 97 97 Oxygen Delivery Method Room Air Room Air Room Air BMI result Body Mass Index 49.1 VITAL SIGNS: Reviewed. GENERAL: Elevated BMI, Well developed, well nourished, in no acute distress. HEAD: Normocephalic/atraumatic EYES: PERRLA, EOMI EARS: Ext canals without abnormality LUNGS: Normal breath sounds. No adventitious sounds or accessory muscle use. SpO2<97> CARDIOVASCULAR: Regular rate and rhythm without noted murmurs ABDOMEN: Soft, non-tender, non-distended with bowel sounds. BETO: 1 enlarged external hemorrhoid, small amount of hard stool in rectal vault that is brown no gross blood : Pelvic exam demonstrates dark blood within the posterior fornix, initially clear the area with appropriate cotton applicator, of note urethral opening is within the vaginal vault, however this does appear to be related to the uterus/vagina and not urinary system. MUSCULOSKELETAL: No tenderness, deformities, or effusions noted on gross inspection. EXTREMITIES: No cyanosis, clubbing or edema. SKIN: Inspection of the skin reveals no rashes NEUROLOGIC: Alert and oriented x 4. Strength and sensation to light touch were grossly intact x 4. Course Course Course Narrative: This is an RME: Additional HPI, ROS, PE not included below will be deferred to primary provider. This is a [id number]-female, with a history of htn, hypothyroid, lupus, a fib (d/c anticoagulation 3 days ago due to symptoms), presenting to the emergency department with a complaint of vaginal bleeding x 5 days. Pt was seen on 02/27/2023 for these symptoms. Had CT which was concerning for an abnormal uterus. Reports that she was told to come back to the ER if symptoms do not resolve. Reports gushes of blood everytime she stands up. > 1 pad per hour. VSS. Will be moved to main ER for further evaluation. Plan: Labs ordered. Medical Decision Making Medical Decision Making [facility] Narrative: 63-year-old female with history and clinical presentation consistent with postmenopausal bleeding, on review of CT scan from 02/27 there is noted endometrial stripe thickening which is consistent with ultrasound findings from 03/22/2020, bilateral adnexa are noted to be unremarkable at that time. Pelvic ultrasound which was ordered in conducted today identifies abnormal endometrial thickness of 3.9 cm with mixed echogenicity with internal vascularity. I reviewed all investigations, patient is otherwise asymptomatic with the vaginal bleeding, my interpretation is that patient likely has uterine pathology and I do not think that the bleeding is strictly due to anticoagulation. She is otherwise hemodynamically stable and I will be referring her to follow-up with Dr. Hendricks. Differential Diagnosis Please see the discussion above Lab Data Please see the discussion above 03/02/23 18:50 03/02/23 18:50 Labs: Lab Results 03/02/23 03/02/23 03/02/23 Range/Units 18:50 18:50 18:50 WBC 9.8 (4.8-10.8) X10*3/uL RBC 5.24 (4.20-5.50) X10*6/uL Hgb 13.3 (12.0-16.0) g/dl Hct 40.8 (37.0-47.0) % MCV 77.9 L (80.0-98.0) fL MCH 25.4 L (27.0-33.0) pg MCHC 32.6 (31.0-35.0) g/dl RDW 16.0 (11.0-16.0) % Plt Count 383 (160-400) X10*3/uL MPV 9.5 (9.4-12.3) fL Immature Gran % (Auto) 0.2 (0.0-0.4) % Neut % (Auto) 69.5 (45-73) % Lymph % (Auto) 22.6 (20-40) % [place] % (Auto) 6.1 (2-11) % Eos % (Auto) 1.3 (0-4) % Baso % (Auto) 0.3 (0-2) % Lymph # (Auto) 2.2 (1.2-4.9) X10*3/uL [place] # (Auto) 0.6 (0.1-1.2) X10*3/uL Eos # (Auto) 0.1 (0.0-0.4) X10*3/uL Baso # (Auto) 0.0 (0.0-0.2) X10*3/uL Abs Immat Gran (auto) 0.02 (0.00-0.03) X10*3/uL Absolute Neuts (auto) 6.8 (2.0-8.3) x10*3/uL Absolute Nucleated RBC 0.000 (0.0-0.012) X10*3/uL Nucleated RBC % (auto) 0.0 (0.0-0.2) /100WBC PT 11.8 (10.0-13.1) SEC INR 1.0 (0.9-1.1) APTT 37.1 H (26.0-36.4) SEC Sodium 145 (135-145) mmol/L Potassium 4.1 (3.3-5.1) mmol/L Chloride 103 (96-108) mmol/L Carbon Dioxide 31 H (22-29) mmol/L Anion Gap 15 (12-20) BUN 11 (9-16) mg/dL Creatinine 1.06 (0.5-1.4) mg/dL Estim Creat Clear Calc 66.7 Estimated GFR 53 Random Glucose 118 H (60-115) mg/dL Calcium 9.4 (8.4-10.2) mg/dL Magnesium 2.0 (1.6-2.6) mg/dL Total Bilirubin 0.5 (0.0-1.0) mg/dL Direct Bilirubin 0.2 (0.0-0.5) mg/dL AST 29 (5-31) U/L ALT 20 (0-31) U/L Alkaline Phosphatase 130 H (39-117) U/L Total Protein 7.5 (6.5-8.0) g/dL Albumin 4.1 (3.5-5.0) g/dL Lipase 18 (8-78) U/L Stool Occult Blood (NEGATIVE) 03/02/23 Range/Units 20:15 WBC (4.8-10.8) X10*3/uL RBC (4.20-5.50) X10*6/uL Hgb (12.0-16.0) g/dl Hct (37.0-47.0) % MCV (80.0-98.0) fL MCH (27.0-33.0) pg MCHC (31.0-35.0) g/dl RDW (11.0-16.0) % Plt Count (160-400) X10*3/uL MPV (9.4-12.3) fL Immature Gran % (Auto) (0.0-0.4) % Neut % (Auto) (45-73) % Lymph % (Auto) (20-40) % [place] % (Auto) (2-11) % Eos % (Auto) (0-4) % Baso % (Auto) (0-2) % Lymph # (Auto) (1.2-4.9) X10*3/uL [place] # (Auto) (0.1-1.2) X10*3/uL Eos # (Auto) (0.0-0.4) X10*3/uL Baso # (Auto) (0.0-0.2) X10*3/uL Abs Immat Gran (auto) (0.00-0.03) X10*3/uL Absolute Neuts (auto) (2.0-8.3) x10*3/uL Absolute Nucleated RBC (0.0-0.012) X10*3/uL Nucleated RBC % (auto) (0.0-0.2) /100WBC PT (10.0-13.1) SEC INR (0.9-1.1) APTT (26.0-36.4) SEC Sodium (135-145) mmol/L Potassium (3.3-5.1) mmol/L Chloride (96-108) mmol/L Carbon Dioxide (22-29) mmol/L Anion Gap (12-20) BUN (9-16) mg/dL Creatinine (0.5-1.4) mg/dL Estim Creat Clear Calc Estimated GFR Random Glucose (60-115) mg/dL Calcium (8.4-10.2) mg/dL Magnesium (1.6-2.6) mg/dL Total Bilirubin (0.0-1.0) mg/dL Direct Bilirubin (0.0-0.5) mg/dL AST (5-31) U/L ALT (0-31) U/L Alkaline Phosphatase (39-117) U/L Total Protein (6.5-8.0) g/dL Albumin (3.5-5.0) g/dL Lipase (8-78) U/L Stool Occult Blood NEGATIVE (NEGATIVE) Radiology Impression Radiologist Impression: My interpretation is in agreement with radiology's impression Chronic Conditions Patient?s care impacted by: Hypertension and Other CAD Discharge Plan Discharge Clinical Impression: Abnormal vaginal bleeding in postmenopausal patient, Chronic anticoagulation Patient Disposition: Home, Self-Care Instructions: Blood Thinners (ED) Additional Instructions: 1. Resume all home medications as prescribed. 2. It appears that you have a thickened lining of your uterus which will require further evaluation by the head packager, I have spoken with Dr. Hendricks who is expecting your phone call tomorrow and you should call the office. 3. Follow-up with primary care provider. Return to the ER for any worsening symptoms. Prescriptions: No Action metoprolol tartrate 50 mg tablet 50 mg PO BID 90 Days Qty: 180 3RF lisinopril 10 mg tablet 10 mg PO DAILY 90 Days Qty: 90 1RF Multaq 400 mg tablet 400 mg PO BID 90 Days Qty: 180 1RF Pradaxa 150 mg capsule 150 mg PO BID 90 Days Qty: 180 1RF Hold Instructions: Resume on 04/02/21. fluticasone propionate 50 mcg/actuation spray,suspension 1 spray intranasal BID PRN (Reason: Allergy Symptoms) meclizine 25 mg tablet 25 mg PO QID PRN (Reason: dizziness) Qty: 20 0RF multivitamin with folic acid [Daily-Clayton (with folic acid)] 400 mcg tablet 0 tab PO folic acid 1 mg tablet 1 mg PO DAILY milnacipran 50 mg tablet 50 mg PO BID loratadine 10 mg tablet 10 mg PO DAILY furosemide 20 mg tablet 20 mg PO DAILY pravastatin 20 mg tablet 20 mg PO BEDTIME omeprazole 20 mg capsule,delayed release(DR/EC) 20 mg PO DAILY docusate sodium 100 mg capsule 100 mg PO BID ferrous sulfate 325 mg (65 mg iron) tablet 325 mg PO DAILY ascorbic acid (vitamin C) 250 mg tablet 250 mg PO DAILY calcium carbonate 600 mg calcium (1,500 mg) tablet 600 mg PO DAILY levothyroxine 75 mcg tablet 75 mcg PO DAILY alprazolam 0.5 mg tablet 0.5 mg PO TID PRN (Reason: Anxiety) fluticasone propionate 110 mcg/actuation HFA aerosol inhaler 2 puff inhalation BID Referrals: Mercedes Pandya MD [Primary Care Provider] - Armani Hendricks MD [Physician] - (Postmenopausal bleeding, endometrial stripe very thickened)
[2023-03-02 18:55] LABS: Basophils Percent Auto 0.3 % (0-2); Eosinophils Absolute Auto 0.1 X10*3/uL (0.0-0.4); Eosinophils Percent Auto 1.3 % (0-4); Hematocrit 40.8 % (37.0-47.0); Hemoglobin 13.3 g/dl (12.0-16.0); Imm Gran Abs Auto 0.02 X10*3/uL (0.00-0.03); Imm Gran Pct Auto 0.2 % (0.0-0.4); Lymphocytes Absolute Auto 2.2 X10*3/uL (1.2-4.9); Lymphocytes Percent Auto 22.6 % (20-40); MANUAL DIFF FLAG NO; Mean Corpuscular HGB Conc 32.6 g/dl (31.0-35.0); Mean Corpuscular Hemoglobin 25.4 pg (27.0-33.0); Mean Corpuscular Volume 77.9 fL (80.0-98.0); Mean Platelet Volume 9.5 fL (9.4-12.3); Monocytes Absolute Auto 0.6 X10*3/uL (0.1-1.2); Monocytes Percent Auto 6.1 % (2-11); Neutrophils Absolute Auto 6.8 x10*3/uL (2.0-8.3); Neutrophils Percent Auto 69.5 % (45-73); Platelet Count 383 X10*3/uL (160-400); Red Blood Count 5.24 X10*6/uL (4.20-5.50); White Blood Count 9.8 X10*3/uL (4.8-10.8)
[2023-03-02 18:57] VITALS: BP 154/91; PULSE 87; RESP 16; O2SAT 97
[2023-03-02 19:01] LABS: Prothrombin Time 11.8 SEC (10.0-13.1)
[2023-03-02 19:03] LABS: Partial Thromboplastin Time 37.1 SEC (26.0-36.4)
[2023-03-02 19:13] LABS: Alanine Aminotransferase 20 U/L (0-31); Albumin Level 4.1 g/dL (3.5-5.0); Alkaline Phosphatase 130 U/L (39-117); Anion Gap 15 (12-20); Aspartate Amino Transferase 29 U/L (5-31); Bilirubin Direct 0.2 mg/dL (0.0-0.5); Bilirubin Total 0.5 mg/dL (0.0-1.0); Blood Urea Nitrogen 11 mg/dL (9-16); Calcium 9.4 mg/dL (8.4-10.2); Carbon Dioxide 31 mmol/L (22-29); Chloride 103 mmol/L (96-108); Creatinine Clr Calc Pharmacy 66.7; Estimated Glomerular Filt Rate 53; Glucose Random 118 mg/dL (60-115); Lipase 18 U/L (8-78); Potassium 4.1 mmol/L (3.3-5.1); Sodium 145 mmol/L (135-145); Total Protein 7.5 g/dL (6.5-8.0)
[2023-03-02 20:21] LABS: OBS Int Ctl Valid YES
[2023-03-02 20:22] LABS: OBS1 NEGATIVE (NEGATIVE)
[2023-03-02 20:48] VITALS: BP 130/84; PULSE 83; RESP 20; TEMP 36.9; O2SAT 97
== END 2023-03-02 22:06 | disposition home or self-care (01) ==
PROVIDERS: Physician Assistant Medical; Emergency Provider Student in an Organized Health Care Education/Training Program; PCP Internal Medicine
DX: N95.0 Postmenopausal bleeding (principal); Z79.01 Long term (current) use of anticoagulants; I11.0 Hypertensive heart disease with heart failure; I50.9 Heart failure, unspecified; I48.0 Paroxysmal atrial fibrillation; Z86.711 Personal history of pulmonary embolism; Z98.51 Tubal ligation status; Z90.49 Acquired absence of other specified parts of digestive tract; Z79.899 Other long term (current) drug therapy
CPT/HCPCS: 36415; 76830; 76856; 80048; 80076; 82272; 83690; 83735; 85025; 85610; 85730; 99284

== ENCOUNTER 2023-03-09 12:17 | Outpatient (REF) | payer OTHER, SELFPAY | END 2023-03-09 12:18 | disposition home or self-care (01) | LOC: HO.LNP 12:17 | PROVIDERS: PCP Internal Medicine; Visit Provider Obstetrics & Gynecology | DX: N95.0 Postmenopausal bleeding (principal) | CPT/HCPCS: 58100; 88305; 99212 ==

== ENCOUNTER → 2023-03-15 14:06 | Outpatient (BNVA) | payer OTHER, SELFPAY | PROVIDERS: PCP Internal Medicine; Visit Provider Obstetrics & Gynecology | DX: N95.0 Postmenopausal bleeding (principal) | CPT/HCPCS: 99212 ==

== ENCOUNTER → 2023-03-24 14:40 | Outpatient (BNVA) | payer OTHER, SELFPAY | PROVIDERS: PCP Internal Medicine; Referring Provider Internal Medicine; Visit Provider Internal Medicine Cardiovascular Disease | DX: I48.91 Unspecified atrial fibrillation (principal) | CPT/HCPCS: 93005; 99211 ==

== ENCOUNTER 2023-04-25 14:33 | Outpatient (REF) | payer OTHER, SELFPAY | END 2023-04-25 14:34 | disposition home or self-care (01) | LOC: HO.LAB 14:33 | PROVIDERS: PCP Internal Medicine; Visit Provider Internal Medicine | DX: N30.00 Acute cystitis without hematuria (principal); R10.30 Lower abdominal pain, unspecified; R35.0 Frequency of micturition | CPT/HCPCS: 87086 ==

== ENCOUNTER 2023-05-04 10:45 | Outpatient (AMB) | payer OTHER, SELFPAY ==
[2023-05-04 11:02] VITALS: BP 122/82; PULSE 81; BMI 49.4
--- NOTE | 2023-05-04 11:02 | A.OFFVIS_ITS ---
Intake Vital Signs 05/04/23 11:02 Height 5 ft 1 in Weight 261 lb 7.492 oz BMI 49.4 BP 122/82 Blood Pressure Location Lt brachial Position Sitting Pulse 81 Pulse Source Monitor Intake Visit Reasons: pre- op clearance Intake Note: Preoperative visit with EKG prior to hysteroscopy in uterus. Early Childhood Education Coordinator Required: No Accompanied by: Self / Same As Patient Allergies duloxetine [From CYMBALTA] Allergy (Severe, Verified 05/04/23 11:05) Anaphylaxis Penicillins Allergy (Severe, Verified 05/04/23 11:05) Anaphylaxis shellfish derived Allergy (Severe, Verified 05/04/23 11:05) Numbness, swelling mouth STEROIDS Allergy (Severe, Verified 05/04/23 11:05) UNKNOWN cortisone Allergy (Unknown, Verified 05/04/23 11:05) Unknown hydromorphone [From Dilaudid] Allergy (Verified 05/04/23 11:05) Itching morphine Adverse Reaction (Verified 05/04/23 11:05) Hallucinations Crustaceans Allergy (Severe, Uncoded 05/04/23 11:05) RESP PROBLEMS HPI HPI Comments History of Present Illness Details Marie comes for follow-up. She is scheduled to undergo risk control representative surgery for uterine polyps under general anesthesia in near future. She is limited in activity level she can perform with exertional shortness of breath. She denies any exertional chest pain. No orthopnea, PND, leg edema. No prolonged palpitation irregular heartbeat. Takes all her medications. No bleeding issues or neurologic events. Her last cardiac workup was more than 2 years ago with myocardial perfusion imaging at that time within normal limits. [facility] Medical History Arthritis Back pain, chronic Bronchitis Carpal tunnel syndrome Chronic back pain Edema Elevated partial thromboplastin time (PTT) Fibromyalgia Glaucoma Hematuria Hematuria HTN (hypertension) Hypothyroid Lupus Migraine Morbid obesity Paroxysmal atrial fibrillation Pulmonary embolism Raynauds disease SVT (supraventricular tachycardia) Takotsubo cardiomyopathy Tendinitis Thyroid nodule Surgical History History of total bilateral knee replacement (TKR) History of tubal ligation Hx of cholecystectomy Hx of tonsillectomy Family History Father No problems noted. Mother CVD (cardiovascular disease) Brother Stomach cancer Social History Household Members: Family Housing: Apartment Do you presently have visiting nurse or other home services: Yes (son helps with bathing) Alcohol intake: never Patient Tobacco Use Status: Never used Tobacco Advance Directives Date on File: 03/25/21 service: No Current occupational status: disabled Current occupation: right handed Female Reproductive History Menstrual Age of Menarche: 14 Review of Systems Const Denies weakness ENT Denies dizziness Card Denies chest pain, Denies chest pain with activity, Denies syncope, Denies rapid heart rate, Denies pedal edema, Denies edema, Denies leg edema, Denies lightheadedness, Denies palpitations, Denies dyspnea, Denies dyspnea on exertion and Denies orthopnea Resp Denies cough, Denies dyspnea and Denies dyspnea on exertion GI Denies hematochezia and Denies change in stool character Musc Denies abnormal gait, Denies muscle cramps, Denies muscle weakness, Denies numbness, Denies radiating pain into limb and Denies tingling Neuro Denies abnormal gait, Denies dizziness, Denies syncope, Denies numbness, Denies tingling and Denies weakness Endo Denies palpitations Physical Exam Vital Signs: Last Vital Signs Pulse 81 05/04/23 11:02 BP 122/82 05/04/23 11:02 BMI result Body Mass Index 49.4 Const General: cooperative, comfortable, no acute distress, alert and awake Nutritional Appearance: obese morbidly obese Orientation/consciousness: patient oriented x3 Limitations: no limitations Neck Neck: Yes trachea midline, Yes supple and Yes no JVD Resp Effort & Inspection: normal respiratory effort Auscultation: clear to auscultation bilaterally Cardio Jugular venous distension: no JVD Rate: regular rate Rhythm: regular rhythm Heart sounds: S1 normal heart sound present and S2 normal heart sound present GI Inspection: Yes obesity Auscultation: normal bowel sounds Skin General skin exam: no rashes or lesions noted and ecchymosis Neuro General: patient oriented x3 and no focal motor deficits Extrem General: No clubbing, No cyanosis and Yes pedal edema Psych Appearance: grossly normal Affect: Anxious affect present Office Procedures EKG Details: EKG shows normal sinus rhythm with anterior T-wave inversion which could be multifactorial including nonspecific changes, RV strain or ischemia. [id number], Complete Assessment & Plan Assessment & Plan (1) Pre-operative cardiovascular examination: Code(s): Z01.810 - Encounter for preprocedural cardiovascular examination Plan: Preoperative cardiovascular risk stratification for intermediate risk surgery in this middle-aged woman with multiple risk factors and limiting exertional shortness of breath with limited exercise capacity. Further workup with myocardial perfusion imaging with vaso dilator in near future along with echocardiogram 12 LV systolic and diastolic function as well as RV size and function will be pursued. Further management and recommendations based on the finding of this test. These are within normal limits, she would be low risk for perioperative cardiovascular morbidity mortality. At this point time she can proceed with her noncardiac surgery holding her oral anticoagulation with Pradaxa 3 days prior to the procedure and resume it as soon as possible after the procedure to reduce her thromboembolic risk. (2) Paroxysmal atrial fibrillation: Code(s): I48.0 - Paroxysmal atrial fibrillation Plan: Highly symptomatic paroxysmal atrial fibrillation as well as SVT have remained suppressed on therapy with Multaq. She has done very well with rhythm control approach. Continue to pursue rhythm control approach. Continue Multaq therapy. EKGs every 3 months needs to be pursued. Follow up in the clinic in 6 months time. Continue aggressive risk factor modification. Aggressive weight loss program is recommended. Continue CPAP therapy for sleep apnea. Continue aggressive management of blood pressure. Blood pressure is currently well optimized. Target goal blood pressure less than 130/84. Advised to avoid stim ulants and participate in stress mitigation strategies. Continue full oral anticoagulation long run with Pradaxa 150 mg b.i.d.. Semi annual renal function test should be pursued. Will follow up in the clinic in 3 months for EKG in 6 months with me. Thank you for allowing me to partake in the care Orders: Orders CA lexiscan stress w talib Today Z01.810 - Encounter for preprocedural cardiovascular examination CA echo transthoracic complete Today Z01.810 - Encounter for preprocedural cardiovascular examination Coding Level of Care Code Est Pt Level 4 (72508) Diagnoses Pre-operative cardiovascular examination Z01.810 Paroxysmal atrial fibrillation I48.0 CPT Codes EKG - CPT: [id number], Complete ([id number])
== END 2023-05-04 11:25 | disposition home or self-care (01) ==
PROVIDERS: PCP Internal Medicine; Referring Provider Internal Medicine; Visit Provider Internal Medicine Cardiovascular Disease
DX: Z01.810 Encounter for preprocedural cardiovascular examination (principal); I48.0 Paroxysmal atrial fibrillation
CPT/HCPCS: 93010; 99214

== ENCOUNTER → 2023-05-04 10:45 | Outpatient (BNVA) | payer OTHER, SELFPAY | PROVIDERS: PCP Internal Medicine; Referring Provider Internal Medicine; Visit Provider Internal Medicine Cardiovascular Disease | DX: Z01.810 Encounter for preprocedural cardiovascular examination (principal); I48.0 Paroxysmal atrial fibrillation | CPT/HCPCS: 93005; 99212 ==

== ENCOUNTER → 2023-06-10 08:26 | Outpatient (REF) | payer OTHER, SELFPAY ==
--- NOTE | 2023-06-10 08:30 | CA_ITS ---
Transthoracic Echocardiogram Patient (Last, First, Middle): Marie Banks, Gender: Female Date of : 1960 Age: 63 Procedure Date: 06/10/2023 Procedure Type: Transthoracic Echocardiogram Location: OP Height: 154.94 cm Weight: 117.94 kg BSA: 2.11 m2 Heart Rate: 78 bpm BP: 158 / 100 mmHg Layout Worker: JOCELYN Referring MD: Josiah Anne MD Dispensing Lead: Josiah Anne MD Symptoms: Z01.810 - Encounter for preprocedural cardiovascular examination Study Quality: Technically Difficult ECG Rhythm: Sinus Conclusions: - 1. Technically limited study due to body habitus 2. Normal LV ejection fraction 55-60% with grade 1 diastolic dysfunction 3. Limited visualization cardiac valves with cardiac valvular Dopplers within normal limits 4. Normal RV systolic pressure Findings Left Ventricle Normal left ventricular size, thickness, and systolic function. The visually estimated ejection fraction is between 55-60%. Spectral Doppler is indicative of an impaired relaxation filling pattern. E/E prime ratio is <8, consistent with normal filling pressures. Evidence suggests grade I (mild) diastolic dysfunction. Wall Motion Rest Echo Findings The basal inferior segment is akinetic. Right Ventricle The right ventricle was not well visualized. Atria The left atrium is normal in size. Interatrial shunt cannot be excluded. The right atrium was not well visualized. Aortic Valve The aortic valve was not well visualized. There is no aortic valve stenosis. There is no aortic valve regurgitation. Mitral Valve The mitral valve was not well visualized. There is trace mitral valve regurgitation. There is no mitral valve stenosis. Pulmonic Valve The pulmonic valve was not well visualized. Tricuspid Valve The tricuspid valve was not well visualized. There is trace tricuspid valve regurgitation. The right ventricular systolic pressure is normal. Normal right atrial pressure. There is no evidence of pulmonary hypertension. Great Vessels The aorta was not well visualized. The pulmonary artery was not well visualized. Venous The inferior vena cava collapses greater than 50% with inspiration. Pericardium/Pleural The pericardium was not well visualized. Measurements 2D Linear Measurements IVSd: 1.10 0.6-0.9/0.6-1.0 cm LVIDd: 5.20 3.9-5.3/4.2-5.9 cm LVIDd Index: 2.46 2.4-3.2/2.2-3.1 cm/m2 LVIDs: 3.70 2.0-3.6 cm LVPWd: 0.80 0.7-1.1 cm LA Diam: 4.60 2.7-3.8/3.0-4.0 cm LAIDs Index: 2.18 1.5-2.3 cm/m2 LV Mass: 226.00 67-162/88-224 g LV Mass Index: 107.11 43-95/49-115 g/m2 LVOT Diam: 2.20 3.0+(-)1.3 cm 2D Systolic Function EF 4C: 54.10 >55% EF 2C: 56.30 >55% EF BiP: 55.00 >55% Mitral Valve MV Pk E: 0.56 MV PK A: 0.72 MV Decel Time: 250.00 E/A: 0.80 E'Lateral: 8.16 E'Medial: 6.20 E/E' Med: 9.00 E/E' Lat: 6.90 PHT: 73.00 MVA PHT: 3.01 Decel T[place]air: 2.24 Aortic Valve AoV Pk Zeyad: 1.29 AoV Mn Zeyad: 1.01 AoV VTI: 0.28 AoV Pk Grad: 7.00 Aov Mn Grad: 4.00 JOY Cont.VTI: 2.55 LVOT LVOT Pk Zeyad: 0.93 LVOT Mn Zeyad: 0.67 LVOT VTI: 0.19 LVOT Pk Grad: 3.00 LVOT Mn Grad: 2.00 LVOT Diam: 2.20 LVOT Area: 3.80 Diastolic Function MV Pk E: 0.56 MV Pk A: 0.72 E/A: 0.80 E'Medial: 6.20 E/E' Med: 9.00 E' Laterial: 8.16 E/E' Lat: 6.90 Right Ventricle TAPSE (mm): 21.90 TVS' Zeyad: 12.50 Tricuspid Valve TR Pk Zeyad: 2.14 TR Pk Grad: 18.00 RA Press: 3.00 RVSP: 21.00 Great Vessels Aorta Sinus of Valsalva: 3.60 2.0-3.5 cm Ao Asc: 3.20 2.1-3.4 cm Pulmonary Valve PV Pk Zeyad: 1.07 Peak PV Grad: 5.00 Updated in Other Vendor System with Status of Final Josiah Anne MD electronically signed on 06/11/2023 2:00:08 PM with status of Final
== END ==
LOC: HO.CARD 08:26
PROVIDERS: PCP Internal Medicine; Visit Provider Internal Medicine Cardiovascular Disease
DX: Z01.810 Encounter for preprocedural cardiovascular examination (principal)
CPT/HCPCS: 93306

== ENCOUNTER → 2023-06-10 08:30 | Outpatient (BNV) | payer OTHER, SELFPAY | PROVIDERS: PCP Internal Medicine; Visit Provider Internal Medicine Cardiovascular Disease | DX: I51.9 Heart disease, unspecified (principal) | CPT/HCPCS: 93306 ==

== ENCOUNTER → 2023-06-17 09:32 | Outpatient (REF) | payer OTHER, SELFPAY ==
--- NOTE | ~2023-06-17 | NM_ITS ---
Lexiscan Myocardial perfusion study Indication: Shortness of breath, preoperative evaluation Technique: The patient was brought in for a Lexiscan perfusion study on 06/17/2023 and was injected 0.4 mg of Lexiscan intravenously. Within a minute of this injection 40 mCi of sestamibi was given intravenously. Images were obtained using the SPECT gamma camera interlaced with the gating device. Images were obtained in supine position. Resting perfusion study was performed on 06/21/2023. Patient was administered 40 mCi of sestamibi intravenously at rest. Images were then obtained in supine position. Images were processed with the software and compared side to side in short axis, horizontal long axis and vertical long axis views. Total DLP 178mGy-cm. Findings: Raw acquisition reviewed. The stress perfusion study showed no significant perfusion quality. Both uncorrected as well as CT attenuation corrected images were reviewed. The gated study shows normal LV systolic function with calculated LVEF of 68%. LV cavity is normal in size. The gated study shows normal wall thickening and contraction of segments. Resting study shows diminished tracer uptake in the apical part of inferolateral wall. There is improvement with CT attenuation correction suggestive of diaphragmatic attenuation artifact. Gating at rest reveals normal wall motion with ejection fraction at 51%. The findings are consistent with no clear reversible or fixed perfusion defects. NM/NM talib perf SPECT rest & str Impression: 1. Myocardial perfusion imaging study shows probably normal myocardial perfusion. No clear evidence of any ischemia or infarction. 2. Gated LVEF is 68% during stress and 51% during rest. Correlate with echocardiogram. 3. Transient ischemic dilatation not present. EKG component of the test reported separately.
--- NOTE | 2023-06-17 09:40 | CA_ITS ---
Acquisition Time: 2023-06-17 10:02:12 Total Exercise Time: 00:02:00 Test Indications: SOB, PREOP Medications: SEE H Protocol: LEXISCAN Max HR: 103 BPM 64% of Pred: 159 BPM Max BP: 136/080 mmHG Max Work Load: 1.0 METS Pharmacological stress test with Lexiscan injection while sitting and kicking her legs, without anginal symptoms, with isolated PVC, with normtensive response to injection, with nondiagnositic EKGs. Nuclear images pending. Test reviewed with Dr. Kong. Referred By: Josiah Anne Overread By: Dawna Whitfield
== END ==
LOC: HO.CARD 09:32
PROVIDERS: PCP Internal Medicine; Visit Provider Internal Medicine Cardiovascular Disease
DX: Z01.810 Encounter for preprocedural cardiovascular examination (principal)
CPT/HCPCS: 78452; 93017; A9500; J0280; J2785

== ENCOUNTER → 2023-06-17 09:40 | Outpatient (BNV) | payer OTHER, SELFPAY | PROVIDERS: PCP Internal Medicine; Visit Provider Nurse Practitioner | DX: R06.02 Shortness of breath (principal); R94.31 Abnormal electrocardiogram [ECG] [EKG]; Z01.810 Encounter for preprocedural cardiovascular examination | CPT/HCPCS: 78452; 93016; 93018 ==

== ENCOUNTER → 2023-06-23 14:56 | Outpatient (BNVA) | payer OTHER, SELFPAY | PROVIDERS: PCP Internal Medicine; Visit Provider Internal Medicine Cardiovascular Disease ==

== ENCOUNTER 2023-10-07 10:02 | Outpatient (AMB) | payer OTHER, SELFPAY ==
--- NOTE | 2023-10-07 10:16 | AM.OFFVISNUR ---
Intake Intake Visit Reasons: EKG Accompanied by: Self / Same As Patient Allergies duloxetine [From CYMBALTA] Allergy (Severe, Verified 05/04/23 11:05) Anaphylaxis Penicillins Allergy (Severe, Verified 05/04/23 11:05) Anaphylaxis shellfish derived Allergy (Severe, Verified 05/04/23 11:05) Numbness, swelling mouth STEROIDS Allergy (Severe, Verified 05/04/23 11:05) UNKNOWN cortisone Allergy (Unknown, Verified 05/04/23 11:05) Unknown hydromorphone [From Dilaudid] Allergy (Verified 05/04/23 11:05) Itching morphine Adverse Reaction (Verified 05/04/23 11:05) Hallucinations Crustaceans Allergy (Severe, Uncoded 05/04/23 11:05) RESP PROBLEMS Nursing Note EKG handed to Dr. Anne Office Procedures EKG [id number], Complete Coding CPT Codes EKG - CPT: 86017-[id number], Complete ([id number])
== END 2023-10-07 10:18 | disposition home or self-care (01) ==
PROVIDERS: PCP Internal Medicine; Visit Provider Internal Medicine Cardiovascular Disease
DX: I45.81 Long QT syndrome (principal)
CPT/HCPCS: 93010

== ENCOUNTER → 2023-10-07 10:02 | Outpatient (BNVA) | payer OTHER, SELFPAY | PROVIDERS: PCP Internal Medicine; Visit Provider Internal Medicine Cardiovascular Disease | DX: R94.31 Abnormal electrocardiogram [ECG] [EKG] (principal) | CPT/HCPCS: 93005 ==

== ENCOUNTER 2023-12-22 14:55 | Outpatient (AMB) | payer OTHER, SELFPAY ==
--- NOTE | 2023-12-22 15:08 | MHC.OFFVIS ---
Intake Vital Signs 12/22/23 15:10 Height 5 ft 1 in Weight 268 lb 15.423 oz BMI 50.8 BP 120/80 Blood Pressure Location Lt brachial Position Sitting Pulse 84 Intake Visit Reasons: 1 yr w/ ekg Intake Note: 1 year follow-up with ekg c/o sob Inside Wirer Required: No Allergies duloxetine [From CYMBALTA] Allergy (Severe, Verified 05/04/23 11:05) Anaphylaxis Penicillins Allergy (Severe, Verified 05/04/23 11:05) Anaphylaxis shellfish derived Allergy (Severe, Verified 05/04/23 11:05) Numbness, swelling mouth STEROIDS Allergy (Severe, Verified 05/04/23 11:05) UNKNOWN cortisone Allergy (Unknown, Verified 05/04/23 11:05) Unknown hydromorphone [From Dilaudid] Allergy (Verified 05/04/23 11:05) Itching morphine Adverse Reaction (Verified 05/04/23 11:05) Hallucinations Crustaceans Allergy (Severe, Uncoded 05/04/23 11:05) RESP PROBLEMS HPI HPI Comments History of Present Illness Details With dilator comes for follow-up. She says she has been moving much better. She has less exertional shortness of breath. Leg edema is improved with venous compression therapy being provided by vascular surgery. She has not had any prolonged irregular heartbeat or palpitation consistent with atrial fibrillation. She is still get tends to get anxious. Denies orthopnea, PND, worsening leg edema. No bleeding issues or neurologic events. [facility] Medical History Hematuria Hematuria Pulmonary embolism Chronic back pain Elevated partial thromboplastin time (PTT) HTN (hypertension) Morbid obesity Takotsubo cardiomyopathy SVT (supraventricular tachycardia) Paroxysmal atrial fibrillation Thyroid nodule Bronchitis Edema Glaucoma Back pain, chronic Arthritis Hypothyroid Migraine Raynauds disease Carpal tunnel syndrome Tendinitis Fibromyalgia Lupus Surgical History History of tubal ligation Hx of cholecystectomy Hx of tonsillectomy History of total bilateral knee replacement (TKR) Family History Father No problems noted. Mother CVD (cardiovascular disease) Brother Stomach cancer Social History Household Members: Family Housing: Apartment Do you presently have visiting nurse or other home services: Yes (son helps with bathing) Alcohol intake: never Patient Tobacco Use Status: Never used Tobacco Advance Directives Date on File: 03/25/21 service: No Current occupational status: disabled Current occupation: right handed Female Reproductive History Menstrual Age of Menarche: 14 Review of Systems Const Denies chills, Denies fatigue, Denies fever(s), Denies frequent falls, Denies weakness, Denies weight gain and Denies weight loss ENT Denies dizziness Card Denies chest pain, Denies leg edema, Denies lightheadedness, Denies palpitations, Denies dyspnea, Denies dyspnea on exertion, Denies orthopnea and Denies other (loss of consciousness) Resp Denies cough, Denies dyspnea and Denies dyspnea on exertion GI Denies hematochezia and Denies change in stool character Musc Denies abnormal gait, Denies muscle weakness, Denies numbness, Denies radiating pain into limb and Denies tingling Neuro Denies abnormal gait, Denies dizziness, Denies frequent falls, Denies numbness, Denies tingling and Denies weakness Endo Denies fatigue and Denies palpitations Physical Exam Vital Signs: Last Vital Signs Pulse 84 12/22/23 15:10 BP 120/80 12/22/23 15:10 BMI result Body Mass Index 50.8 Const General: cooperative, comfortable, no acute distress, alert and awake Nutritional Appearance: obese morbidly obese Orientation/consciousness: patient oriented x3 Limitations: no limitations Neck Neck: Yes trachea midline, Yes supple and Yes no JVD Resp Effort & Inspection: normal respiratory effort Auscultation: clear to auscultation bilaterally Cardio Jugular venous distension: no JVD Rate: regular rate Rhythm: regular rhythm Heart sounds: S1 normal heart sound present and S2 normal heart sound present GI Inspection: Yes obesity Auscultation: normal bowel sounds Skin General skin exam: no rashes or lesions noted and ecchymosis Neuro General: patient oriented x3 and no focal motor deficits Extrem General: No clubbing, No cyanosis and Yes pedal edema Psych Appearance: grossly normal Affect: Anxious affect present Office Procedures EKG Details: EKG shows normal sinus rhythm with poor R-wave progression due to lead placement and body habitus. Mildly prolonged QT interval [id number], Complete Assessment & Plan Assessment & Plan (1) Paroxysmal atrial fibrillation: Code(s): I48.0 - Paroxysmal atrial fibrillation Plan: Highly symptomatic paroxysmal atrial fibrillation as SVT which has remained suppressed on Multaq therapy. She is done extremely with rhythm control approach. Will continue pursue rhythm control approach. Continue Multaq therapy. Will need EKGs every 3 months. Continue full oral anticoagulation, currently on Pradaxa 150 mg b.i.d.. Semi annual renal function test should be pursued. Continue participate in aggressive weight loss program continue CPAP therapy. Continue aggressive control blood pressure. (2) Nonischemic cardiomyopathy: Code(s): I42.8 - Other cardiomyopathies Plan: Prior history of cardiomyopathy nonischemic especially takotsubo syndrome. We discussed about management and includes stress mitigation strategies. Continue neurohormonal modulation with metoprolol as well as lisinopril which has helped her significantly. Clinically with no signs of heart failure. Currently on Lasix therapy for bilateral leg edema. Continue CPAP therapy. Continue to aggressively treat blood pressure, see below. (3) HTN (hypertension), benign: Code(s): I10 - Essential (primary) hypertension Plan: Blood pressure which is currently well optimized advised to monitor blood pressure at home maintain a log. Goal blood pressure less than 130/84. Low-salt diet was discussed. Participate in regular physical activity and weight loss program was discussed. Continue CPAP therapy. Follow up in the clinic in 1 year with me. Thank you for allowing me to partake in the care Coding Level of Care Code Est Pt Level 4 (49226) Diagnoses Paroxysmal atrial fibrillation I48.0 Nonischemic cardiomyopathy I42.8 HTN (hypertension), benign I10 CPT Codes EKG - CPT: 71091-[id number], Complete ([id number])
[2023-12-22 15:10] VITALS: BP 120/80; PULSE 84; BMI 50.8
== END 2023-12-22 15:38 | disposition home or self-care (01) ==
PROVIDERS: PCP Internal Medicine; Visit Provider Internal Medicine Cardiovascular Disease
DX: I48.0 Paroxysmal atrial fibrillation (principal); I42.8 Other cardiomyopathies; I10 Essential (primary) hypertension
CPT/HCPCS: 93010; 99214

== ENCOUNTER → 2023-12-22 14:55 | Outpatient (BNVA) | payer OTHER, SELFPAY | PROVIDERS: Visit Provider Internal Medicine Cardiovascular Disease | DX: I48.0 Paroxysmal atrial fibrillation (principal); I42.8 Other cardiomyopathies; I10 Essential (primary) hypertension; R60.0 Localized edema | CPT/HCPCS: 93005; 99212 ==

== ENCOUNTER 2024-03-30 13:52 | Outpatient (REF) | payer OTHER, SELFPAY ==
[2024-03-30 15:23] LABS: Anion Gap 13 (12-20); Blood Urea Nitrogen 10 mg/dL (9-16); Calcium 9.5 mg/dL (8.4-10.2); Carbon Dioxide 33 mmol/L (22-29); Chloride 101 mmol/L (96-108); Estimated Glomerular Filt Rate > 60; Glucose Random 202 mg/dL (60-115); Potassium 3.5 mmol/L (3.3-5.1); Sodium 143 mmol/L (135-145)
[2024-03-30 15:27] LABS: B Type Natriuretic Peptide 59 pg/mL (<100)
== END 2024-03-30 13:53 | disposition home or self-care (01) ==
LOC: HO.LAB 13:52
PROVIDERS: Visit Provider Internal Medicine Cardiovascular Disease
DX: I48.0 Paroxysmal atrial fibrillation (principal); I50.9 Heart failure, unspecified
CPT/HCPCS: 36415; 80048; 83880

== ENCOUNTER 2024-07-05 14:00 | Outpatient (REF) | payer OTHER, SELFPAY ==
[2024-07-05 14:18] LABS: MANUAL DIFF FLAG NO
[2024-07-05 15:09] LABS: Basophils Percent Auto 0.3 % (0-2); Eosinophils Absolute Auto 0.1 X10*3/uL (0.0-0.4); Eosinophils Percent Auto 1.2 % (0-4); Hemoglobin 13.8 g/dl (12.0-16.0); Imm Gran Abs Auto 0.03 X10*3/uL (0.00-0.03); Imm Gran Pct Auto 0.3 % (0.0-0.4); Lymphocytes Absolute Auto 2.9 X10*3/uL (1.2-4.9); Lymphocytes Percent Auto 30.1 % (20-40); Mean Corpuscular HGB Conc 32.9 g/dl (31.0-35.0); Mean Corpuscular Volume 79.2 fL (80.0-98.0); Monocytes Absolute Auto 0.6 X10*3/uL (0.1-1.2); Monocytes Percent Auto 6.1 % (2-11); Platelet Count 407 X10*3/uL (160-400); Red Cell Distribution Width 16.9 % (11.0-16.0); White Blood Count 9.7 X10*3/uL (4.8-10.8)
[2024-07-05 15:55] LABS: Alanine Aminotransferase 25 U/L (0-31); Albumin Level 4.3 g/dL (3.5-5.0); Alkaline Phosphatase 115 U/L (39-117); Anion Gap 14 (12-20); Aspartate Amino Transferase 28 U/L (5-31); Bilirubin Total 0.6 mg/dL (0.0-1.0); Blood Urea Nitrogen 14 mg/dL (9-16); Calcium 9.7 mg/dL (8.4-10.2); Carbon Dioxide 32 mmol/L (22-29); Chloride 101 mmol/L (96-108); Cholesterol 191 mg/dL (<200); Estimated Glomerular Filt Rate > 60; Glucose Random 101 mg/dL (60-115); HDL Cholesterol 54 mg/dL (>40); LDL Cholesterol Calculated 103 mg/dL (<100); Potassium 3.5 mmol/L (3.3-5.1); Sodium 143 mmol/L (135-145); Total Protein 8.3 g/dL (6.5-8.0); Triglycerides 171 mg/dL (<150)
[2024-07-05 16:01] LABS: Ferritin 410 ng/mL (10-250); Thyroid Stimulating Hormone 2.09 uIU/mL (0.32-4.0)
== END 2024-07-05 14:01 | disposition home or self-care (01) ==
LOC: HO.LAB 14:00
PROVIDERS: PCP Internal Medicine; Visit Provider Internal Medicine
DX: F41.1 Generalized anxiety disorder (principal); I10 Essential (primary) hypertension; M06.9 Rheumatoid arthritis, unspecified; Z79.01 Long term (current) use of anticoagulants; Z86.001 Personal history of in-situ neoplasm of cervix uteri
CPT/HCPCS: 36415; 80053; 80061; 82728; 84443; 85025

== ENCOUNTER → 2024-09-18 15:01 | Outpatient (BNVA) | payer OTHER, SELFPAY | PROVIDERS: PCP Internal Medicine; Visit Provider Internal Medicine Cardiovascular Disease ==

== ENCOUNTER 2024-12-20 14:53 | Outpatient (AMB) | payer OTHER, SELFPAY ==
[2024-12-20 15:05] VITALS: BP 130/70; PULSE 80; BMI 50.8
--- NOTE | 2024-12-20 15:05 | A.OFFVIS_ITS ---
Vital Signs 12/20/24 15:05 Height 5 ft 1 in Weight 268 lb 15.423 oz BMI 50.8 BP 130/70 Blood Pressure Location Lt brachial Position Sitting Pulse 80 Intake Visit Reasons: 1 year fu w/ ekg Intake Note: 1 year follow-up with ekg c/o Control Cabinet Assembler Required: No Allergies duloxetine [From CYMBALTA] Allergy (Severe, Verified 05/04/23 11:05) Anaphylaxis Penicillins Allergy (Severe, Verified 05/04/23 11:05) Anaphylaxis shellfish derived Allergy (Severe, Verified 05/04/23 11:05) Numbness, swelling mouth STEROIDS Allergy (Severe, Verified 05/04/23 11:05) UNKNOWN cortisone Allergy (Unknown, Verified 05/04/23 11:05) Unknown hydromorphone [From Dilaudid] Allergy (Verified 05/04/23 11:05) Itching morphine Adverse Reaction (Verified 05/04/23 11:05) Hallucinations Crustaceans Allergy (Severe, Uncoded 05/04/23 11:05) RESP PROBLEMS Medication List - Last Reconciled 12/20/24 by Josiah Anne MD alprazolam 0.5 mg PO TID PRN ascorbic acid (vitamin C) 250 mg PO DAILY calcium carbonate 600 mg PO DAILY docusate sodium 100 mg PO BID dronedarone (Multaq) 400 mg PO BID 90 days ferrous sulfate 325 mg PO DAILY fluticasone propionate 50 mcg/actuation 1 spray intranasal BID PRN fluticasone propionate 110 mcg/actuation 2 puffs inhalation BID folic acid 1 mg PO DAILY furosemide 20 mg PO DAILY levothyroxine 75 mcg PO DAILY lisinopril 10 mg PO DAILY 90 days loratadine 10 mg PO DAILY meclizine 25 mg PO QID PRN metoprolol tartrate 50 mg PO BID 90 days milnacipran 50 mg PO BID montelukast 10 mg PO DAILY multivitamin with folic acid 400 mcg (Daily-Clayton (with folic acid)) 0 tabs PO omeprazole 20 mg PO DAILY Pradaxa (dabigatran etexilate) 150 mg PO BID NS HPI Comments Details: Tacho comes for follow-up. Unfortunately she has not been able to lose much weight. From cardiac perspective she continues to have no significant symptoms. She might had 1 episode of palpitation although she did not present to the emergency room. She continues to have a lot of anxiety and panic situations related to social situation and events not related to her. She has no exertional chest pain. No clear orthopnea, PND, leg edema. Currently taking all her medications. No bleeding issues or neurologic events. [facility] Medical History Hematuria Hematuria Pulmonary embolism Chronic back pain Elevated partial thromboplastin time (PTT) HTN (hypertension) Morbid obesity Takotsubo cardiomyopathy SVT (supraventricular tachycardia) Paroxysmal atrial fibrillation Thyroid nodule Bronchitis Edema Glaucoma Back pain, chronic Arthritis Hypothyroid Migraine Raynauds disease Carpal tunnel syndrome Tendinitis Fibromyalgia Lupus Surgical History History of tubal ligation Hx of cholecystectomy Hx of tonsillectomy History of total bilateral knee replacement (TKR) Family History Father No problems noted. Mother CVD (cardiovascular disease) Brother Stomach cancer Social History Household Members: Family Housing: Apartment Do you presently have visiting nurse or other home services: Yes (son helps with bathing) Alcohol intake: never Patient Tobacco Use Status: Never used Tobacco Advance Directives Date on File: 03/25/21 service: No Current occupational status: disabled Current occupation: right handed Female Reproductive History Menstrual Age of Menarche: 14 Review of Systems Const Denies chills, Denies fatigue, Denies fever(s), Denies frequent falls, Denies weakness, Denies weight gain and Denies weight loss ENT Denies dizziness Card Denies chest pain, Denies leg edema, Denies lightheadedness, Denies palpitations, Denies dyspnea, Denies dyspnea on exertion, Denies orthopnea and Denies other (loss of consciousness) Resp Denies cough, Denies dyspnea and Denies dyspnea on exertion GI Denies hematochezia and Denies change in stool character Musc Denies abnormal gait, Denies muscle weakness, Denies numbness, Denies radiating pain into limb and Denies tingling Neuro Denies abnormal gait, Denies dizziness, Denies frequent falls, Denies numbness, Denies tingling and Denies weakness Endo Denies fatigue and Denies palpitations Physical Exam Vital Signs: Last Vital Signs Pulse 80 12/20/24 15:05 BP 130/70 12/20/24 15:05 BMI result Body Mass Index 50.8 Const General: cooperative, comfortable, no acute distress, alert and awake Nutritional Appearance: obese morbidly obese Orientation/consciousness: patient oriented x3 Limitations: no limitations Neck Neck: Yes trachea midline, Yes supple and Yes no JVD Resp Effort & Inspection: normal respiratory effort Auscultation: clear to auscultation bilaterally Cardio Jugular venous distension: no JVD Rate: regular rate Rhythm: regular rhythm Heart sounds: S1 normal heart sound present and S2 normal heart sound present GI Inspection: Yes obesity Auscultation: normal bowel sounds Skin General skin exam: no rashes or lesions noted and ecchymosis Neuro General: patient oriented x3 and no focal motor deficits Extrem General: No clubbing, No cyanosis and Yes pedal edema Psych Appearance: grossly normal Affect: Anxious affect present Office Procedures EKG Details: EKG shows normal sinus rhythm with poor R-wave progression most likely lead placement [id number], Complete Assessment & Plan Assessment & Plan (1) Paroxysmal atrial fibrillation: Code(s): I48.0 - Paroxysmal atrial fibrillation Category: Medical Plan: Paroxysmal atrial fibrillation in this middle-aged female with prior history of mild CAD and hypertension which has remained suppressed on Multaq therapy. She was derived significant benefit from rhythm control approach there has been no hospitalization related to it. Continue Multaq therapy. Avoidance of stimulants was discussed. Stress mitigation strategies were discussed. Continue full oral anticoagulation, currently on Pradaxa 150 mg b.i.d.. Semi annual renal function test should be pursued. She would most benefit from weight reduction therapy. (2) HTN (hypertension), benign: Code(s): I10 - Essential (primary) hypertension Category: Medical Plan: Hypertension which is currently well optimized advised to monitor blood pressure and maintain a log. Goal blood pressure less than 130/84. Low-salt diet was discussed. Continue CPAP therapy. Continue participate in aggressive weight loss program. Stress mitigation strategies were discussed. Will follow every 3 months for EKG and 1 year with me. Thank you for allowing me to partake in his care Orders: Orders Complete Blood Count no Diff 12/20/24 I48.0 - Paroxysmal atrial fibrillation Basic Metabolic Panel 03/20/25 I48.0 - Paroxysmal atrial fibrillation Lipid Panel 12/20/24 I48.0 - Paroxysmal atrial fibrillation Coding Level of Care Code Est Pt Level 4 (35829) Complex EM visit Add On G2211 Diagnoses Paroxysmal atrial fibrillation I48.0 HTN (hypertension), benign I10 CPT Codes EKG - CPT: 03403-[id number], Complete ([id number])
--- OUTSIDE RECORDS SUMMARY | 2024-12-20 17:22 | XMS_ITS | Data Portability ---
Author Organization [employer] [facility] [employer] Address [address] [place] [address] Care Team Providers Care Swim Instructor Name Role Phone [facility] Referring Provider Assessment Encounter Date Assessment Date Assessment LastModified by Organization Details LastModified Time 02/21/2023 02/21/2023 I have reviewed and agree with the assessment and plan as documented by the buggy ladle tender. I provided real time medical direction for this encounter and was immediately available to provide additional phone based assistance as needed. History as noted by buggy ladle tender. Pt reports 1 week of UTI symptoms with dysuria and hematuria. She is also reporting b/l lower back pain. She reports being seen by her PCP 5 days ago and they checked her urine and did a vaginal exam. She reports she was diagnosed with a UTI and kidney stones and they were planning on scheduling her for a CT scan. She reports that she was prescribed an antibiotic for her UTI but there was a mix up and she won't be receiving the antibiotic until tomorrow. She reports increased dysuria today. She reports that the b/l lower back pain is stable and she denies any abdominal pain, nausea, vomiting, fevers or chills. On exam, pt appears comfortable. Vitals ok although BP elevated. Impression: Recent diagnosis of UTI last week but will not be getting her antibiotic until tomorrow for unclear reasons. Pt appears well and is afebrile with no signs or symptoms of systemic infection. I am unable to access PCP note or urine culture result from last week and do not know which antibiotic had been prescribed for her. Given that pt will be obtaining and starting an antibiotic tomorrow for a UTI that was diagnosed last week, no indication today to repeat urine studies. Pt is medicated with a dose of levofloxacin 500mg po which will cover her antibiotic treatment for 24 hours. She is instructed to start her prescribed antibiotic tomorrow and to call and follow up with her primary care doctor later this week to let them know how she is feeling. Pt instructed to seek medical attention right away with any worsening or new symptoms, which are reviewed with her. btils Not available 02/21/2023 14:47:22 Plan of Treatment Reminders Order Date Submit Date Provider Last Modified By Organization Details Last Modified Time Details Appointments None recorded. Lab None recorded. Referral None recorded. Procedures None recorded. Surgeries None recorded. Imaging None recorded. Medication Orders levofloxaci n 500 mg tablet 2022 023 btils Not available 14:10:23 Patient TargetsNo targets recorded. Patient InstructionsNo instructions recorded. Reason for Referral None Reported. Medical Equipment None Reported. Medications Name Sig Start Date Stop Date Status Note LastModified by Organization Details LastModified Time azithromycin 250 mg tablet TAKE 2 TABLETS BY MOUTH TODAY, THEN TAKE 1 TABLET DAILY FOR 4 DAYS DIRECTED active Not Available Not Available No t Available ciprofloxaci n 500 mg tablet active Not Available Not Available Not Available sulfamethoxa zole 800 mg-trimethop rim 160 mg tablet TAKE 1 TABLET BY MOUTH TWICE A DAY FOR 5 DAYS active Not Available Not Available No t Available levothyroxin e 75 mcg tablet TAKE 1 TABLET BY MOUTH EVERY DAY active Not Available Not Available No t Available alprazolam 0.5 mg tablet TAKE 1 TABLET BY MOUTH THREE TIMES DAILY active Not Available Not Available Not Available calcium 600 mg (as calcium carbonate 1,500 mg) tablet TAKE 1 TABLET BY MOUTH EVERY DAY active Not Available Not Available No t Available meclizine 25 mg tablet TAKE 1 TABLET BY MOUTH 4 TIMES DAILY NEEDED FOR DIZZINESS active Not Available Not Available No t Available ascorbic acid (vitamin C) 250 mg tablet TAKE 1 TABLET BY MOUTH EVERY DAY active Not Available Not Available No t Available ferrous sulfate 325 mg (65 mg iron) tablet TAKE 1 TABLET BY MOUTH EVERY DAY active Not Available Not Available No t Available lisinopril 10 mg tablet TAKE 1 TABLET BY MOUTH DAILY active Not Available Not Available Not Available metoprolol tartrate 50 mg tablet TAKE 1 TABLET BY MOUTH TWICE A DAY active Not Available Not Available No t Available docusate sodium 100 mg capsule TAKE 1 CAPSULE BY MOUTH TWICE A DAY active Not Available Not Available No t Available omeprazole 20 mg capsule,randee yed release TAKE 1 CAPSULE BY MOUTH EVERY DAY active Not Available Not Available No t Available folic acid 1 mg tablet TAKE 1 TABLET BY MOUTH EVERY DAY active Not Available Not Available No t Available montelukast 10 mg tablet TAKE 1 TABLET BY MOUTH EVERY DAY active Not Available Not Available No t Available pravastatin 20 mg tablet TAKE 1 TABLET BY MOUTH EVERYDAY AT BEDTIME active Not Available Not Available No t Available furosemide 20 mg tablet TAKE 1 TABLET BY MOUTH EVERY DAY active Not Available Not Available No t Available levofloxacin 500 mg tablet Take 1 tablet by oral route. 2022 active Not Available Not Available Not Avai lable fluticasone propionate 50 mcg/actuatio n nasal spray,suspen kristen USE 1 SPRAY IN EACH NOSTRIL EVERY DAY active Not Available Not Available No t Available loratadine 10 mg tablet TAKE 1 TABLET BY MOUTH EVERY DAY active Not Available Not Available No t Available Ventolin HFA 90 mcg/actuatio n aerosol inhaler INHALE 2 PUFFS 4 TIMES A DAY NEEDED active Not Available Not Available No t Available Flovent HFA 110 mcg/actuatio n aerosol inhaler INHALE 2 PUFFS INHALATION TWICE A DAY. active Not Available Not Available No t Available Savella 50 mg tablet TAKE 1 TABLET BY MOUTH TWICE A DAY active Not Available Not Available No t Available Multaq 400 mg tablet TAKE 1 TABLET BY MOUTH TWICE A DAY active Not Available Not Available No t Available Pradaxa 150 mg capsule TAKE 1 CAPSULE BY MOUTH TWICE A DAY active Not Available Not Available No t Available BinaxNOW COVID-19 Ag Self Test kit TEST DIRECTED TODAY active Not Available Not Available No t Available Daily-Clayton (with folic acid) 400 mcg tablet TAKE 1 TABLET BY MOUTH EVERY DAY active Not Available Not Available No t Available Vitals Date Recorded Heart rate Oxygen saturation Oxygen saturation in Arterial blood by Pulse oximetry Body temperature Body weight Respiratory rate Body temperature Body weight Oxygen saturation Oxygen saturation in Arterial blood by Pulse oximetry Respiratory rate Heart rate Systolic blood pressure Diastolic blood pressure Systolic blood pressure Diastolic blood pressure Provider Name and Address Organization Details Last Updated DateTime 3 82 /min 98 % 98 % 98.1 [degF] 989942. 92 g 18 /min 98.1 [degF] 691345. 92 g 98 % 98 % 18 /min 82 /min 170 mm[Hg] 102 mm[Hg] 170 mm[Hg] 102 mm[Hg] Not Available [employer] - production 3 14:21:26 Social History None recorded. Functional Status None recorded. Mental Status None recorded. Family History Nothing Reported. Medical History No medical history recorded. Gynecological HistoryNo gynecological history recorded. Obstetrics History GPAL:G 0 P 0 0 0 0 Past Encounters Encounter ID Performer Location Encounter Start Date Encounter Closed Date Diagnosis/Indication Diagnosis SNOMED-CT Code Diagnosis ICD10 Code Diagnosis Note [id number] Ortega Kerr MD [address] [address] 02/21/2023 14:03:35 02/22/2023 14:50:38 Acute urinary tract infection 530526978 N39.0 Health Concerns Section Related Observation LastModified by Organization Detai ls LastModified Time None Recorded Concern Status LastModified by Organization Details LastModified Time None Recorded Advance Directives Directive None Recorded Payers Encounter Date Sequence Insurance Name Policy Number Policy Orozco Covered Member ID Orozco Member ID Guarantor Name 02/21/2023 1 [facility] - DOS PRIOR TO 2023 - DUAL ELIGIBLE (MEDICARE REPLACEMENT/ADV ANTAGE - HMO) Marie Eng [id number] Marie Eng Notes Date Note Type Note Provider Name and Address Organization Details Recorded Time 02/21/2023 text/html This was a supervised home visit with buggy ladle tender Mayito Ruth. HPI: Member has severe anxiety. Member was told by PCP that they were ordering ABX for UTI. She had bleeding and burning. Pharmacy said ABX were ordered 02/17 but they will bring tomorrow. Her pain is worsening. ................. ................. ................. ................. ................. ................. ................. ................. ..... CRC Nursing Assessment: Comments: CRC RN DID NOT NEED FURTHER INFO ................. ................. ................. ................. ................. ................. ................. ................. ..... Relay Technician Note From Mayito Ruth: [email or web address]. Pt c/o UTI related symptoms, painful urination w/blood when she s herself after urinating. Pt also has flank pain. Pt st she went to PCP this past weds ad an exam, urine dip/culture and was dx with UTI and kidney stones. Pt sts antibiotic prescribed to her however will not receive them until tomorrow. Pt looking for relief er. Pt denies CP SOB Fever nausea confusion or dizziness. Baseline vitals assessed recorded. [facility] contacted and 500mg Levaquin given PO and pt advised to start the cribed antibiotic from her PCP tomorrow when it arrives. Pt advised to monitor ptoms over next few days and if worsen to seek ER care or See PCP. Pt educated on that would indicate the ER. ................. ................. ................. ................. ................. ................. ................. ................. ..... Disposition: Fulfilled Ortega Kerr MD [address] [facility],[address], [place], [address], [employer] 02/21/2023 14:47:34 OBGyn Episode No OBEpisode recorded.
== END 2024-12-20 15:36 | disposition home or self-care (01) ==
LOC: HO.HCS 14:54
PROVIDERS: PCP Internal Medicine; Visit Provider Internal Medicine Cardiovascular Disease
DX: I48.0 Paroxysmal atrial fibrillation (principal); I10 Essential (primary) hypertension
CPT/HCPCS: 93010; 99214; G2211

== ENCOUNTER → 2024-12-20 14:53 | Outpatient (BNVA) | payer OTHER, SELFPAY | PROVIDERS: PCP Internal Medicine; Visit Provider Internal Medicine Cardiovascular Disease | DX: I48.0 Paroxysmal atrial fibrillation (principal); I10 Essential (primary) hypertension | CPT/HCPCS: 93005; 99212 ==

== ENCOUNTER 2025-01-14 13:36 | Outpatient (REF) | payer OTHER, SELFPAY ==
[2025-01-14 14:09] LABS: Hematocrit 41.7 % (37.0-47.0); Mean Corpuscular HGB Conc 33.6 g/dl (31.0-35.0); Mean Corpuscular Hemoglobin 26.4 pg (27.0-33.0); Mean Corpuscular Volume 78.7 fL (80.0-98.0); Platelet Count 419 X10*3/uL (160-400); Red Cell Distribution Width 16.9 % (11.0-16.0)
[2025-01-14 14:24] LABS: Anion Gap 17 (12-20); Blood Urea Nitrogen 11 mg/dL (9-16); Calcium 9.7 mg/dL (8.4-10.2); Carbon Dioxide 30 mmol/L (22-29); Chloride 98 mmol/L (96-108); Cholesterol 232 mg/dL (<200); Estimated Glomerular Filt Rate > 60; Glucose Random 181 mg/dL (60-115); HDL Cholesterol 50 mg/dL (>40); LDL Cholesterol Calculated 146 mg/dL (<100); Potassium 3.3 mmol/L (3.3-5.1); Sodium 142 mmol/L (135-145); Triglycerides 183 mg/dL (<150)
--- OUTSIDE RECORDS SUMMARY | 2025-01-14 15:39 | XMS_ITS | Data Portability ---
Author Organization [employer] [employer] [facility] [employer] Address [address] [place] [address] Care Team Providers Care Dermatology Specialist Name Role Phone [facility] Referring Provider [phone] Assessment Encounter Date Assessment Date Assessment LastModified by Organization Details LastModified Time 02/21/2023 02/21/2023 I have reviewed and agree with the assessment and plan as documented by the ballet professor. I provided real time medical direction for this encounter and was immediately available to provide additional phone based assistance as needed. History as noted by ballet professor. Pt reports 1 week of UTI symptoms [...] /min 98 % 98 % 98.1 [degF] 278904. 92 g 18 /min 98.1 [degF] 309769. 92 g 98 % 98 % 18 [...] SNOMED-CT Code Diagnosis ICD10 Code Diagnosis Note [id number] Ortega Kerr MD [address] [address] 02/21/2023 14:03:35 02/22/2023 14:50:38 Acute urinary tract infection [id number] N39.0 Health Concerns Section Related Observation LastModified by Organization Detai ls LastModified Time None Recorded Concern Status LastModified by Organization Details LastModified Time None Recorded Advance Directives Directive None Recorded Payers Encounter Date Sequence Insurance Name Policy Number Policy Orozco Covered Member ID Orozco Member ID Guarantor Name 02/21/2023 1 [facility] - DOS PRIOR TO 2023 - DUAL ELIGIBLE (MEDICARE REPLACEMENT/ADV ANTAGE - HMO) Marie Eng [id number] Marie Eng Notes Date Note Type Note Provider Name and Address Organization Details Recorded Time 02/21/2023 text/html This was a supervised home visit with ballet professor Mayito Ruth. HPI: Member has severe anxiety. [...] ................. ................. ................. ................. ................. ................. ..... Yard Caller Note From Mayito Ruth: [email or web address]. Pt c/o UTI related symptoms, painful urination [...] ..... Disposition: Fulfilled Ortega Kerr MD [address] [facility],[address], [place], [address], [employer] 02/21/2023 14:47:34 OBGyn Episode No OBEpisode recorded.
== END 2025-01-14 13:37 | disposition home or self-care (01) ==
LOC: HO.LAB 13:36
PROVIDERS: PCP Internal Medicine; Visit Provider Internal Medicine Cardiovascular Disease
DX: I48.0 Paroxysmal atrial fibrillation (principal)
CPT/HCPCS: 36415; 80048; 80061; 85027

== ENCOUNTER 2025-07-09 11:19 | Outpatient (REF) | payer OTHER, SELFPAY ==
[2025-07-09 12:33] LABS: Alanine Aminotransferase 23 U/L (0-31); Albumin Level 4.3 g/dL (3.5-5.0); Alkaline Phosphatase 139 U/L (39-117); Anion Gap 15 (12-20); Aspartate Amino Transferase 34 U/L (5-31); Blood Urea Nitrogen 12 mg/dL (9-16); Calcium 9.1 mg/dL (8.4-10.2); Carbon Dioxide 31 mmol/L (22-29); Chloride 100 mmol/L (96-108); Cholesterol 143 mg/dL (<200); Estimated Glomerular Filt Rate 56; HDL Cholesterol 40 mg/dL (>40); Potassium 3.0 mmol/L (3.3-5.1); Sodium 143 mmol/L (135-145); Total Protein 7.7 g/dL (6.5-8.0); Triglycerides 142 mg/dL (<150)
[2025-07-09 12:52] LABS: Thyroid Stimulating Hormone 3.80 uIU/mL (0.32-4.0)
--- OUTSIDE RECORDS SUMMARY | 2025-07-09 14:15 | XMS_ITS | Patient Health Record ---
Author Organization [facility] Address [address] [place] [address] Care Team Providers Care Senior Case Manager Name Role Phone Jefferson Georges Unavailable [phone] Reason For Referral No Information Plan Of Treatment No Information
[2025-07-17 12:53] LABS: Anti Nuclear Antibody Pattern Nuclear, Speckled; Anti Nuclear Antibody Screen POSITIVE (NEGATIVE); Anti Nuclear Antibody Titer 1:160 titer
== END 2025-07-09 11:20 | disposition home or self-care (01) ==
LOC: HO.LAB 11:19
PROVIDERS: PCP Internal Medicine; Visit Provider Internal Medicine
DX: Z01.84 Encounter for antibody response examination (principal); E03.8 Other specified hypothyroidism; E78.00 Pure hypercholesterolemia, unspecified; I48.0 Paroxysmal atrial fibrillation; M06.9 Rheumatoid arthritis, unspecified; R06.02 Shortness of breath; H93.12 Tinnitus, left ear; I10 Essential (primary) hypertension
CPT/HCPCS: 36415; 80053; 80061; 84443; 85652; 86038; 86039; 86200; 86431